=== PATIENT | female | born 1980 | race African-American/Black ===

== ENCOUNTER 2021-11-17 15:39 | Inpatient (IN) | payer OTHER, SELFPAY ==
[2021-11-17] MEDS ORDERED: NA CHLORIDE 0.9% 1,000 ML ONE ×2 (16:04→18:56)
[2021-11-17] MEDS ORDERED: ONDANSETRON 4 MG/2 ML VIAL ONE (16:04)
[2021-11-17] MEDS ORDERED: MORPHINE 4 MG/ML SYR ONE (16:04)
[2021-11-17] MEDS ORDERED: FAMOTIDINE 20 MG/2 ML VIAL IV ONE (16:04)
[2021-11-17 16:16] LABS: Absolute Lymphocytes (CBC) 3.7 K/uL (0.7-4.9); Lymphocytes % 39.4 % (15.3-44.8); MPV 8.9 fL (7.6-11.3); RBC Red Blood Cell Count 4.42 M/uL (3.86-4.86)
[2021-11-17 16:17] LABS: Protime INR 1.12
[2021-11-17 16:33] LABS: ALT/SGPT 19 U/L (12-78); AST/SGOT 11 U/L (15-37); Albumin 3.4 g/dL (3.4-5.0); Alkaline Phosphatase 87 U/L (45-117); BUN Blood Urea Nitrogen 10 mg/dL (7-18); Bicarbonate 26 mmol/L (21-32); Bilirubin Direct 0.1 mg/dL (0-0.2); Bilirubin Total 0.3 mg/dL (0.2-1.0); Glucose Level 135 mg/dL (74-106); Lipase 972 U/L (73-393); NT PRO-BNP 54 pg/mL (<125); Potassium 3.7 mmol/L (3.5-5.1); Protein, Total 7.2 g/dL (6.4-8.2); Sodium Level 140 mmol/L (136-145); Troponin High Sensitivity 5.6 pg/mL (<58.9)
--- NOTE | 2021-11-17 17:41 | RAD REPORT ---
EXAM DESCRIPTION: RAD - Chest Single View - 11/17/2021 4:58 pm CLINICAL HISTORY: ABDOMINAL DISTENTION COMPARISON: None TECHNIQUE: AP portable chest image was obtained 11/17/2021 4:58 pm . FINDINGS: Lungs are clear. Heart and vasculature are normal. No measurable pleural effusion and no p neumothorax. No acute bony abnormality seen. No acute aortic findings suspected. No free air under th e diaphragm. IMPRESSION: No acute cardiopulmonary process.
--- NOTE | 2021-11-17 18:02 | RAD REPORT ---
EXAM DESCRIPTION: US - Abdomen Exam Limited - 11/17/2021 5:50 pm CLINICAL HISTORY: ABD PAIN COMPARISON: No comparisons FINDINGS: No gallstones, sludge or other abnormalities within the gallbladder lumen. There is no wal l thickening or pericholecystic fluid. No common duct stone or biliary tree dilatation identified. IMPRESSION: Normal gallbladder and biliary tree ultrasound.
[2021-11-17 18:19] LABS: Urine Blood Trace-lysed (Negative); Urine Glucose Negative (Negative); Urine Protein Negative (Negative); Urine Specific Gravity >=1.030 (1.005-1.030)
--- NOTE | 2021-11-17 18:32 | ER ---
Nurse's Notes [facility] Name: Helen Villagran Age: 41 yrs Sex: Female : 1980 Arrival Date: 11/17/2021 Time: 15:40 Bed 20 Private MD: Diagnosis: Epigastric abdominal tenderness;Functional dyspepsia;Vomiting Presentation: 11/17 15:44 Chief complaint: Patient states: i am having severe pain on my right side of my tw2 abdomen. i found out in [place] today that i have high pancreatic levels. they gave me some morphine there. they were not able to admit me there so i decided to come here because all they were going to just send me home with a back [facility]. Coronavirus screen: At this time, the client does not indicate any symptoms associated with coronavirus-19. Ebola Screen: Patient denies travel to an Ebola-affected area in the 21 days before illness onset. Initial Sepsis Screen: Does the patient meet any 2 criteria? No. Patient's initial sepsis screen is negative. Does the patient have a suspected source of infection? No. Patient's initial sepsis screen is negative. Risk Assessment: Do you want to hurt yourself or someone else? Patient reports no desire to harm self or others. Onset of symptoms was November 17, 2021. 15:44 Method Of Arrival: Wheelchair tw2 15:44 Acuity: DARIAN 3 tw2 Triage Assessment: 15:47 General: Appears in no apparent distress. well groomed, Behavior is calm, cooperative, tw2 appropriate for age. Pain: Complains of pain in right lower quadrant. GI: Reports upper abdominal pain, nausea. PREMIUM REPRESENTATIVE: 15:47 LMP N/A - Mirena tw2 Historical: - Allergies: 15:45 Jackie-[place] Plus Cold/Cough (Anaphylaxis); tw2 15:45 tramadol; "mean person"; tw2 - Home Meds: 15:45 None [Active]; tw2 - PMHx: 15:45 None; tw2 - PSHx: 15:45 section; gastric sleeve sx; tw2 - Immunization history:: Client reports receiving the 2nd dose of the Covid vaccine, Flu vaccine is not up to date. - Social history:: Smoking status: Patient denies any tobacco usage or history of. Screenin:58 Abuse screen: Denies threats or abuse. Nutritional screening: No deficits noted. tw2 Tuberculosis screening: No symptoms or risk factors identified. Fall Risk None identified. Assessment: 16:30 General: Appears in no apparent distress. comfortable, Behavior is calm, cooperative. ww Pain: Complains of pain in right upper quadrant and right lower quadrant. Neuro: Level of Consciousness is awake, alert, obeys commands, Oriented to person, place, time, situation, Speech is normal. Cardiovascular: Patient's skin is warm and dry. Chest pain is denied. Respiratory: Airway is patent Respiratory effort is even, unlabored, Respiratory pattern is regular, symmetrical. GI: Abdomen is non-distended, Abd is soft X 4 quads Abdomen is tender to palpation in right upper quadrant and right lower quadrant Reports lower abdominal pain, upper abdominal pain, nausea. : No signs and/or symptoms were reported regarding the genitourinary system. EENT: No signs and/or symptoms were reported regarding the EENT system. Derm: Skin is intact, is healthy with good turgor, Skin is pink, warm \\T\\ dry. 17:26 Reassessment: Patient appears in no apparent distress at this time. No changes from previously documented assessment. Patient and/or family updated on plan of care and expected duration. Pain level reassessed. Patient is alert, oriented x 3, equal unlabored respirations, skin warm/dry/pink. Requested her morphine due to her abdominal pain getting worse. 18:09 Reassessment: Patient appears in no apparent distress at this time. No changes from previously documented assessment. Patient and/or family updated on plan of care and expected duration. Pain level reassessed. Patient is alert, oriented x 3, equal unlabored respirations, skin warm/dry/pink. 19:05 Reassessment: Patient and/or family updated on plan of care and expected duration. Pain vc1 level reassessed. Patient is alert, oriented x 3, equal unlabored respirations, skin warm/dry/pink. Assumed care from YAN Morrison. 20:45 Reassessment: Patient and/or family updated on plan of care and expected duration. Pain vc1 level reassessed. Patient is alert, oriented x 3, equal unlabored respirations, skin warm/dry/pink. Patient states symptoms have improved. 20:53 GI: vc1 Vital Signs: 15:44 BP 133 / 81; Pulse 62; Resp 17; Temp 97.7(TE); Pulse Ox 100% on R/A; Weight 85.28 kg tw2 (R); Height 5 ft. 4 in. (162.56 cm); Pain 3/10; 15:50 BP 137 / 81; Pulse 70; Resp 16; Pulse Ox 99% on R/A; ww 16:32 BP 131 / 81; Pulse 58; Resp 14; Pulse Ox 99% on R/A; ww 19:07 BP 142 / 82; Pulse 49; Resp 16; Pulse Ox 100% on R/A; vc1 15:44 Body Mass Index 32.27 (85.28 kg, 162.56 cm) tw2 ED Course: 15:40 Patient arrived in ED. as 15:43 Bhupinder Clifford MD is Attending Physician. [facility] 15:45 Triage completed. tw2 15:47 Arm band placed on. tw2 15:48 Bed in low position. Call light in reach. Adult w/ patient. tw2 15:54 COVID swab sent to lab. vg1 15:55 Tamiko Lyon, RN is Primary Nurse. ww 16:13 Patient has correct armband on for positive identification. Side rails up X 1. Warm 5 blanket given. Pillow given. rubber and plastics worker on. Pulse ox on. NIBP on. 16:13 Initial lab(s) drawn, by ED staff, sent to lab. EKG done, by ED staff, reviewed by perry Clifford MD. 16:56 Inserted saline lock: 20 gauge in left antecubital area, using aseptic technique. zm 17:00 XRAY Chest (1 view) In Process Unspecified. EDMS 17:51 US Abdomen Limited In Process Unspecified. EDMS 18:21 Test, Serum Sent. [facility] 18:29 CT Abd/Pelvis - IV Contrast Only In Process Unspecified. EDMS 18:29 Tor Orourke MD is Hospitalizing Provider. [facility] 18:49 Benny Fay MD is Hospitalizing Provider. la1 20:53 No provider procedures requiring assistance completed. Patient admitted, IV remains in vc1 place. Administered Medications: 16:10 Drug: NS 0.9% 1000 ml Route: IV; Rate: 1 bolus; Site: left antecubital; vg1 16:10 Drug: Zofran (Ondansetron) 4 mg Route: IVP; Site: left antecubital; vg1 16:12 Drug: Pepcid (famotidine) 20 mg Route: IVP; Site: left antecubital; vg1 17:12 Drug: morphine 4 mg Route: IVP; Site: left antecubital; ww 18:55 Drug: NS 0.9% 1000 ml Route: IV; Rate: 1 bolus; Site: left antecubital; ww Outcome: 18:31 Decision to Hospitalize by Provider. sole 20:50 Admitted to Med/surg accompanied by tech, via wheelchair, room 213, with chart. vc1 20:50 Condition: good 20:50 Instructed on the need for admit. 20:54 Patient left the ED. vc1 Signatures: Dispatcher [employer] EDBhupinder Montejo MD MD cha Martinez, Amelia as Attema, Lee, COBOL DEVELOPER-C COBOL DEVELOPER-Cla1 Angy Phelps RN RN 2 Tamela Lindsay Aura Morgan RN RN 1 Tamiko Lyon RN RN ww Calcote, Vanessa, RN RN vc1 Kiersten Lindsay Corrections: (The following items were deleted from the chart) 18:11 17:26 Reassessment: Patient appears in no apparent distress at this time. No changes ww from previously documented assessment. Patient and/or family updated on plan of care and expected duration. Pain level reassessed. Patient is alert, oriented x 3, equal unlabored respirations, skin warm/dry/pink. ww
--- NOTE | 2021-11-17 18:33 | EDPHYS ---
Physician Documentation [facility] Name: Helen Villagran Age: 41 yrs Sex: Female : 1980 Arrival Date: 11/17/2021 Time: 15:40 Bed 20 Private MD: DALIA Physician Bhupinder Clifford HPI: 11/17 16:23 This 41 yrs old Black Female presents to ER via Wheelchair with complaints of Abdominal sole Pain, Abnormal Lab Results. 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 - Social history:: Smoking status: Patient denies any tobacco usage or history of. ROS: 16:23 Constitutional: Negative for fever, chills, and weight loss, Eyes: Negative for injury, sole pain, redness, and discharge, ENT: Negative for injury, pain, and discharge, Neck: Negative for injury, pain, and swelling, Cardiovascular: Negative for chest pain, palpitations, and edema, Respiratory: Negative for shortness of breath, cough, wheezing, and pleuritic chest pain, Back: Negative for injury and pain, : Negative for injury, bleeding, discharge, and swelling, MS/Extremity: Negative for injury and deformity, Skin: Negative for injury, rash, and discoloration, Neuro: Negative for headache, weakness, numbness, tingling, and seizure, Psych: Negative for depression, anxiety, suicide ideation, homicidal ideation, and hallucinations, Allergy/Immunology: Negative for hives, rash, and allergies, Endocrine: Negative for neck swelling, polydipsia, polyuria, polyphagia, and marked weight changes, Hematologic/Lymphatic: Negative for swollen nodes, abnormal bleeding, and unusual bruising. 16:23 Abdomen/GI: Positive for abdominal pain, abdominal cramps, of the right upper quadrant. Exam: 16:23 Constitutional: This is a well developed, well nourished patient who is awake, alert, sole and in no acute distress. Head/Face: Normocephalic, atraumatic. Eyes: Pupils equal round and reactive to light, extra-ocular motions intact. Lids and lashes normal. Conjunctiva and sclera are non-icteric and not injected. Cornea within normal limits. Periorbital areas with no swelling, redness, or edema. ENT: Nares patent. No nasal discharge, no septal abnormalities noted. Tympanic membranes are normal and external auditory canals are clear. Oropharynx with no redness, swelling, or masses, exudates, or evidence of obstruction, uvula midline. Mucous membranes moist. Neck: Trachea midline, no thyromegaly or masses palpated, and no cervical lymphadenopathy. Supple, full range of motion without nuchal rigidity, or vertebral point tenderness. No Meningismus. Chest/axilla: Normal chest wall appearance and motion. Nontender with no deformity. No lesions are appreciated. Cardiovascular: Regular rate and rhythm with a normal S1 and S2. No gallops, murmurs, or rubs. Normal PMI, no JVD. No pulse deficits. Respiratory: Lungs have equal breath sounds bilaterally, clear to auscultation and percussion. No rales, rhonchi or wheezes noted. No increased work of breathing, no retractions or nasal flaring. Back: No spinal tenderness. No costovertebral tenderness. Full range of motion. Female : Normal external genitalia. Skin: Warm, dry with normal turgor. Normal color with no rashes, no lesions, and no evidence of cellulitis. MS/ Extremity: Pulses equal, no cyanosis. Neurovascular intact. Full, normal range of motion. Neuro: Awake and alert, GCS 15, oriented to person, place, time, and situation. Cranial nerves II-XII grossly intact. Motor strength 5/5 in all extremities. Sensory grossly intact. Cerebellar exam normal. Normal gait. Psych: Awake, alert, with orientation to person, place and time. Behavior, mood, and affect are within normal limits. 16:23 ECG was reviewed by the Attending Physician. 16:23 Abdomen/GI: Inspection: abdomen appears normal, Bowel sounds: normal, Palpation: mild abdominal tenderness, in the right upper quadrant, Liver: no appreciated palpable abnormalities, Hernia: not appreciated. 17:12 Musculoskeletal/extremity: ROM: full active range of motion, full passive range of sole motion, Circulation is intact in all extremities. Sensation intact. Compartment Syndrome exam of affected extremity: is normal. DVT Exam: No signs of deep vein thrombosis. no pain, no swelling, no tenderness, negative Homans' sign noted on exam, no appreciated bluish discoloration, no erythema, no increased warmth. Vital Signs: 15:44 BP 133 / 81; Pulse 62; Resp 17; Temp 97.7(TE); Pulse Ox 100% on R/A; Weight 85.28 kg tw2 (R); Height 5 ft. 4 in. (162.56 cm); Pain 3/10; 15:50 BP 137 / 81; Pulse 70; Resp 16; Pulse Ox 99% on R/A; ww 16:32 BP 131 / 81; Pulse 58; Resp 14; Pulse Ox 99% on R/A; ww 19:07 BP 142 / 82; Pulse 49; Resp 16; Pulse Ox 100% on R/A; vc1 15:44 Body Mass Index 32.27 (85.28 kg, 162.56 cm) tw2 MDM: 16:15 Patient medically screened. sole 16:26 Differential diagnosis: cholecystitis, Cholelithiasis, gastritis, gastroesophageal sole reflux disease, GI Bleed, Menorrhagia, non-specific abd pain, pancreatitis, Peptic Ulcer Disease, Perf. Duodenal Ulcer, Perf. Gastric Ulcer, Peritonitis, Pyelonephritis, urinary tract infection. Data reviewed: vital signs, nurses notes, lab test result(s), EKG, radiologic studies, CT scan, ultrasound. Data interpreted: surveillance system monitor: rate is 62 beats/min, rhythm is regular, Pulse oximetry: on room air is 100 %. Test interpretation: by ED physician or midlevel provider: ECG, plain radiologic studies. Counseling: I had a detailed discussion with the patient and/or guardian regarding: the historical points, exam findings, and any diagnostic results supporting the discharge/admit diagnosis, lab results, radiology results. 11/17 15:46 Order name: Basic Metabolic Panel; Complete Time: 17: [facility] 11/17 15:46 Order name: CBC with Diff; Complete Time: 17: [facility] 11/17 15:46 Order name: LFT's; Complete Time: 17: [facility] 11/17 15:46 Order name: Magnesium; Complete Time: 17: [facility] 11/17 15:46 Order name: NT PRO-BNP; Complete Time: 17:09 [facility] 11/17 15:46 Order name: PT-INR; Complete Time: 17:09 [facility] 11/17 15:46 Order name: Troponin HS; Complete Time: 17:09 [facility] 11/17 15:46 Order name: XRAY Chest (1 view); Complete Time: 18:04 [facility] 11/17 15:46 Order name: Lipase; Complete Time: 17:09 [facility] 11/17 15:46 Order name: CT Abd/Pelvis - IV Contrast Only; Complete Time: 18:48 [facility] 11/17 15:46 Order name: SARS-COV-2 RT PCR (Document "Date of Onset" if Symptomatic); Complete Time: [facility] 11/17 18:07 Order name: Test, Serum 11/17 18:19 Order name: Urine Dipstick-Ancillary; Complete Time: 18:27 [facility] 11/17 18:21 Order name: Urine --Ancillary (enter results) 11/17 15:46 Order name: EKG; Complete Time: 15:47 [facility] 11/17 15:46 Order name: Cardiac monitoring; Complete Time: 16:13 [facility] 11/17 15:46 Order name: EKG - Nurse/Tech; Complete Time: 16:13 [facility] 11/17 15:46 Order name: IV Saline Lock; Complete Time: 16:18 [facility] 11/17 15:46 Order name: Labs collected and sent; Complete Time: 16:18 [facility] 11/17 15:46 Order name: O2 Per Protocol; Complete Time: 16:18 [facility] 11/17 15:46 Order name: O2 Sat Monitoring; Complete Time: 16:18 [facility] 11/17 16:23 Order name: US Abdomen Limited; Complete Time: 18:04 [facility] 11/17 18:07 Order name: Urine Dipstick-Ancillary (obtain specimen); Complete Time: 18:21 [facility] 11/17 18:12 Order name: Hepatobiliary System W/ Ph EDMS EC:23 Rate is 58 beats/min. Rhythm is regular. QRS Barnard is Normal. OK interval is normal. QRS sole interval is normal. QT interval is normal. No Q waves. T waves are Normal. No ST changes noted. Clinical impression: Sinus bradycardia and No evidence of ischemia. Interpreted by me. Reviewed by me. Administered Medications: 16:10 Drug: NS 0.9% 1000 ml Route: IV; Rate: 1 bolus; Site: left antecubital; vg1 16:10 Drug: Zofran (Ondansetron) 4 mg Route: IVP; Site: left antecubital; vg1 16:12 Drug: Pepcid (famotidine) 20 mg Route: IVP; Site: left antecubital; vg1 17:12 Drug: morphine 4 mg Route: IVP; Site: left antecubital; ww 18:55 Drug: NS 0.9% 1000 ml Route: IV; Rate: 1 bolus; Site: left antecubital; ww Disposition Summary: 11/17/21 18:31 Hospitalization Ordered Hospitalization Status: Observation sole Location: Telemetry/MedSurg (observation) sole Condition: Stable sole Problem: new sole Symptoms: have improved sole Bed/Room Type: Standard sole Provider: Benny Fay(11/17/21 18:49) la1 Room Assignment: [facility](11/17/21 19:33) Diagnosis - Epigastric abdominal tenderness sole - Functional dyspepsia sole - Vomiting sole Forms: - Medication Reconciliation Form sole - SBAR form sole Signatures: Dispatcher [employer] EDMS Heather Joyner RN RN Bhupinder Albert MD MD cha Attema, Lee, USABILITY STRATEGIST-C USABILITY STRATEGIST-Cla1 Angy Phelps RN RN tw2 Aura Ramirez RN RN vg1 Tamiko Lyon RN RN ww Corrections: (The following items were deleted from the chart) 18:49 18:31 Tor Orourke [facility] la1 19:33 18:31 sole rojas
--- NOTE | 2021-11-17 18:43 | RAD REPORT ---
EXAM DESCRIPTION: CT - Abdomen Pelvis W Contrast - 11/17/2021 6:28 pm CLINICAL HISTORY: ABD PAIN COMPARISON: No comparisons TECHNIQUE: Biphasic, helical CT imaging of the abdomen and pelvis was performed following 100 ml non -ionic IV contrast. No oral contrast administered. All CT scans are performed using dose optimization technique as appropriate and may include automated exposure control or mA/KV adjustment according to patient size. FINDINGS: No suspicious findings in the lung bases. The liver, spleen, and pancreas show no suspicious findings. Gallbladder and biliary tree are also wi thout suspicious finding. Symmetric renal function is seen with no hydronephrosis or suspicious renal mass. No pyelonephritis o r acute parenchymal process. No bladder abnormalities. No adrenal abnormalities. No ovarian or adnexa l abnormality seen. Tubal occlusive devices are in place. IUD is also in place. No dilated bowel loops or bowel wall thickening. Gastric surgical changes are noted. Appendix is norm al. Right-side colon stool volume is moderate. No acute GI process identifiable. No free air, abnormal free fluid or inflammatory stranding. Trace free fluid in the cul de sac is wi thin physiologic limits. No mass or bulky lymphadenopathy. A small fat only umbilical hernia is prese nt. No congestion or edema. No suspicious bony findings. IMPRESSION: Contrast enhanced CT abdomen and pelvis showing no significant or suspicious finding.
--- NOTE | 2021-11-17 19:23 | P.HP ---
Certification for Inpatient Patient admitted to: Observation With expected LOS: <2 Midnights Patient will require the following post-hospital care: None Practitioner: I am a practitioner with admitting privileges, knowledge of patient current condition, hospital course, and medical plan of care. Services: Services provided to patient in accordance with Admission requirements found in Title 42 Section 412.3 of the Code of Federal Regulations Patient History Date of Service: 11/17/21 Reason for admission: Abdominal tenderness History of Present Illness: 41-year-old -Prydeinig female without significant past medical history presents the emergency department for upper quadrant margo pain. Patient reports that she is had intermittent pain similar to this over the course of the last few years periodically, reports that the past week and a half her pain is been significantly worse than previous. Patient was seen at [facility] today, had elevated lipase level around 900 elected to leave and come here for further treatment. Patient was evaluated again here in the emergency department her lipase was elevated around 900 check ultrasound of her abdomen which was completely negative normal gallbladder and biliary tree, CT of the abdomen pelvis with IV contrast also negative for any acute findings. Patient still with significant epigastric/right upper quadrant pain worse after eating, ED provider wishes to admit under observation for possible early pancreatitis. 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 - Family History Father -: Heart disease Mother -: Cancer - Social History Smoking Status: Never smoker Alcohol use: No CD- Drugs: No Caffeine use: Yes Place of Residence: Home Review of Systems 10-point ROS is otherwise unremarkable Gastrointestinal: Nausea, Abdominal Pain Physical Examination - Physical Exam General: Alert, In no apparent distress, Oriented x3 HEENT: Atraumatic, PERRLA, Mucous membr. moist/pink, EOMI, Sclerae nonicteric Neck: Supple, 2+ carotid pulse no bruit, No LAD, Without JVD or thyroid abnormality Respiratory: Clear to auscultation bilaterally, Normal air movement Cardiovascular: Regular rate/rhythm, Normal S1 S2 Capillary refill: <2 Seconds Gastrointestinal: Normal bowel sounds, Tenderness (Mild right upper quadrant/epigastric tenderness) Musculoskeletal: No tenderness Integumentary: No rashes Neurological: Normal gait, Normal speech, Normal strength at 5/5 x4 extr, Normal tone, Normal affect Lymphatics: No axilla or inguinal lymphadenopathy - Studies Laboratory Data (last 24 hrs) 11/17/21 16:06: PT 12.4, INR 1.12 11/17/21 16:06: WBC 9.4, Hgb 13.6, Hct 40.0, Plt Count 245 11/17/21 16:06: Sodium 140, Potassium 3.7, BUN 10, Creatinine 0.75, Glucose 135 H, Magnesium 2.0, Total Bilirubin 0.3, AST 11 L, ALT 19, Alkaline Phosphatase 87, Lipase 972 H Assessment and Plan - Plan Assessment: Abdominal pain/tenderness possible pancreatitis Plan: Abdominal pain/tenderness possible pancreatitis: N.p.o., IVF, as needed pain medications and antiemetics. Ultrasound of the gallbladder demonstrated no acute findings, normal biliary tree without dilatation. Will trend lipase level. ED provider has also ordered a HIDA scan. LFTs within normal limits. Patient reports she is had issues similar to this in the past and had extensive work-up with previous HIDA scan which was inconclusive. DVT PPX: Lovenox Code status: Full Discharge Plan: Home Plan to discharge in: 24 Hours - Advance Directives Does patient have a Living Will: No Does patient have a Durable POA for Healthcare: No - Code Status/Comfort Care Code Status Assessed: Yes (Full) Critical Care: No Time Spent Managing Pts Care (In Minutes): 55
[2021-11-17] MEDS ORDERED: ONDANSETRON 4 MG/2 ML VIAL IV PRN (19:52)
[2021-11-17] MEDS ORDERED: SODIUM CHLORIDE 0.9% 10ML INJ IV PRN (19:52)
[2021-11-17] MEDS: MORPHINE 2 MG/ML SYR IV PRN (19:55)
[2021-11-17 21:03] VITALS: BMI 32.3
[2021-11-17 22:19] VITALS: O2SAT 100
[2021-11-17] MEDS ORDERED: DIPHENHYDRAMINE 50 MG/ML VIAL IV ONE (22:40)
[2021-11-18] MEDS: NA CHLORIDE 0.9% 1,000 ML IV SCH ×3 (02:00→23:59)
[2021-11-18 04:09] LABS: Absolute Lymphocytes (CBC) 3.3 K/uL (0.7-4.9); Hematocrit 35.5 % (36.0-45.0); Lymphocytes % 40.7 % (15.3-44.8); MPV 8.9 fL (7.6-11.3); RBC Red Blood Cell Count 3.97 M/uL (3.86-4.86)
[2021-11-18 04:18] LABS: ALT/SGPT 17 U/L (12-78); AST/SGOT 11 U/L (15-37); Albumin 2.9 g/dL (3.4-5.0); Alkaline Phosphatase 73 U/L (45-117); BUN Blood Urea Nitrogen 7 mg/dL (7-18); Bicarbonate 28 mmol/L (21-32); Bilirubin Total 0.5 mg/dL (0.2-1.0); Glucose Level 79 mg/dL (74-106); HDL Cholesterol 38 mg/dL (40-60); LDL Cholesterol, Calculated 90 (<130); Lipase 120 U/L (73-393); Potassium 4.1 mmol/L (3.5-5.1); Protein, Total 6.1 g/dL (6.4-8.2); Sodium Level 141 mmol/L (136-145)
[2021-11-18] MEDS: ENOXAPARIN 40 MG/0.4 ML SQ SCH (08:07)
[2021-11-18] MEDS: PANTOPRAZOLE 40 MG INJ IVP SCH (08:07)
--- NOTE | 2021-11-18 12:12 | RAD REPORT ---
EXAM DESCRIPTION: NM - Hepatobiliary System Imagin - 11/18/2021 12:01 pm CLINICAL HISTORY: RUQ pain COMPARISON: No comparisons TECHNIQUE: The patient was administered approximately 6.6 mCi Tc99m Choletec. Imaging of the right u pper quadrant was performed initially for up to 60 minutes. Gallbladder ejection fraction determination was then performed utilizing ice cream. FINDINGS: Normal hepatic uptake and excretion with appropriate clearance of background blood pool ac tivity. Delayed visualization of the small bowel activity. Gallbladder visualizes within normal time limits. The calculated ejection fraction is 45% (normal gre ater than 35%). Subjective pain reported by the patient: Pre-procedure - 0 During or subsequent to following meal ingestion - 0 IMPRESSION: Patient cystic duct and patent sphincter of Oddi. No delay in visualization of the gallb ladder, biliary tree. Delayed biliary to bowel transit could be a normal variant or secondary to legal recovery specialist luis cholecystitis. Ejection fraction is 45% (normal greater than 35%). Subjective patient pain assessment as detailed above.
[2021-11-18] MEDS: MORPHINE 2 MG/ML SYR IV PRN ×2 (12:28→20:50)
--- NOTE | 2021-11-18 12:35 | EKG ---
Test Date: 2021-11-17 Test Time: 16:15:14 Sorting Cows Worker: MEASUREMENT RESULTS: Intervals: Rate: 58 CT: 130 QRSD: 94 QT: 440 QTc: 431 [place]: P: 12 CT: 130 QRS: 20 T: 36 INTERPRETIVE STATEMENTS: Sinus bradycardia Otherwise normal ECG No previous ECG available for comparison Electronically Signed On 11-18-21 12:33:15 CDT by Danny Kaur
[2021-11-18] MEDS: SUCRALFATE 1 GM TABLET PO SCH ×2 (13:37→20:28)
--- NOTE | 2021-11-18 15:17 | P.PN ---
Date of Service: 11/18/21 Subjective: feels better, but hasn't eaten/drank anything yet states pain is shortly after drinking/eating something, worsening over the last 3 weeks Never had episodes like this before - the pain has been much worse this time ROS: 10 point ROS as noted above, otherwise negative Physical exam GEN: Alert, oriented, NAD HEENT: Normal conjunctiva, sclera anicteric CV: Regular rate and rhythm, no edema Pulm: Non-labored respirations on room air ABD: Soft, RUQ mild-mod tenderness to deep palpation Integumentary: No rashes Neuro: Normal speech, normal affect Problem List Abdominal pain/tenderness possible biliary colic vs pancreatitis h/o gastric sleeve NPO, IVF pain medication as needed CT abd/pelvis and U/S show no acute findings patient with pain somewhat consistent with biliary colic, HIDA scan ordered in ED, to be done today LFTs within normal limits had similar episode but much milder many years ago, reports negative work-up f/u HIDA will consult general surgery given presentation, may need an elective cholecystectomy VTE: lovenox Code: full Dispo: home, in ~24hrs Time Spent Managing Pts Care (In Minutes): 35
[2021-11-18] MEDS: ACETAMINOPHEN 500 MG TAB PO PRN ×2 (17:19→23:58)
[2021-11-19] MEDS: NA CHLORIDE 0.9% 1,000 ML IV SCH ×2 (02:00→11:43)
[2021-11-19 05:22] LABS: Absolute Lymphocytes (CBC) 2.7 K/uL (0.7-4.9); Hematocrit 36.3 % (36.0-45.0); Lymphocytes % 48.2 % (15.3-44.8); MPV 8.8 fL (7.6-11.3); RBC Red Blood Cell Count 4.04 M/uL (3.86-4.86)
[2021-11-19 05:42] LABS: ALT/SGPT 14 U/L (12-78); AST/SGOT 8 U/L (15-37); Albumin 2.7 g/dL (3.4-5.0); Alkaline Phosphatase 73 U/L (45-117); BUN Blood Urea Nitrogen 4 mg/dL (7-18); Bicarbonate 27 mmol/L (21-32); Bilirubin Total 0.4 mg/dL (0.2-1.0); Glucose Level 85 mg/dL (74-106); Lipase 121 U/L (73-393); Potassium 3.6 mmol/L (3.5-5.1); Protein, Total 5.7 g/dL (6.4-8.2); Sodium Level 141 mmol/L (136-145)
[2021-11-19 07:52] LABS: Platelet Estimate ADEQ
[2021-11-19 07:53] LABS: Blood Morphology Comment NOT SEEN (NOT SEEN)
[2021-11-19] MEDS: PANTOPRAZOLE 40 MG INJ IVP SCH (08:59)
[2021-11-19] MEDS: SUCRALFATE 1 GM TABLET PO SCH (09:00)
[2021-11-19] MEDS: ENOXAPARIN 40 MG/0.4 ML SQ SCH (09:00)
[2021-11-19] MEDS ORDERED: POTASSIUM CL SA 10 MEQ TAB PO ONE (09:00)
[2021-11-19 13:27] VITALS: BP 129/68; TEMP 97.5
--- NOTE | 2021-11-19 19:55 | P.DS ---
Admission Date: 11/18/21 Discharge Date: 11/19/21 Disposition: ROUTINE DISCHARGE Discharge Condition: GOOD Reason for Admission: Abdominal tenderness Procedures: Problem List RUQ abdominal pain, possible biliary colic vs pancreatitis vs duodenal ulcer h/o gastric sleeve Brief History of Present Illness: 41yo F, PMH: gastric sleeve ~1 year ago. Presented to ED due to progressively worsening intermittent RUQ abdominal pain over the last ~3 weeks. Reported h/o intermittent pain over last several years, but this episode was much more severe and longer lasting. Patient was seen at [facility] today, had elevated lipase level around 900 elected to leave and come here for further treatment. Patient was evaluated again here in the emergency department her lipase was elevated around 900. Ultrasound of her abdomen which was completely negative normal gallbladder and biliary tree, CT of the abdomen pelvis with IV contrast also negative for any acute findings. Patient still with significant epigastric/right upper quadrant pain worse after eating, ED provider wishes to admit for further evaluation/management Hospital Course: Patient was found to have elevated lipase levels and right upper quadrant tenderness. She was evaluated by ultrasound, CT, and HIDA scan, which did not reveal any acute process. General Surgery was consulted. There is possibility the pain is from a duodenal ulcer. Patient had improvement with brief bowel rest, protonix, carafate, and IV fluids. Her diet was advanced to a soft diet which she was able to tolerate. Discharged home with prescriptions for protonix and carafate. Follow up with Dr. Walsh in the next 1-2 weeks. To review and plan for EGD to further evaluate for possible ulcer. Avoid NSAIDs. Recommend tylenol for pain, or topical pain relievers. Follow up with PCP within 1 week Vital Signs/Physical Exam: Temp Pulse Resp BP Pulse Ox 97.5 F 66 14 129/68 100 11/19/21 12:00 11/19/21 12:00 11/19/21 12:00 11/19/21 12:11/19/21 12:00 Physical exam GEN: Alert, oriented, NAD HEENT: Normal conjunctiva, sclera anicteric CV: Regular rate and rhythm, no edema Pulm: Non-labored respirations on room air ABD: Soft, mild RUQ tenderness to deep palpation Neuro: Normal speech, normal affect Laboratory Data at Discharge: WBC 5.7 K/uL (4.3-10.9) D 11/19/21 05:05 Hgb 12.5 g/dL (12.0-15.0) 11/19/21 05:05 Hct 36.3 % (36.0-45.0) 11/19/21 05:05 Plt Count 233 K/uL (152-406) 11/19/21 05:05 PT 12.4 SECONDS (9.5-12.5) 11/17/21 16:06 INR 1.12 11/17/21 16:06 Sodium 141 mmol/L (136-145) 11/19/21 05:05 Potassium 3.6 mmol/L (3.5-5.1) 11/19/21 05:05 BUN 4 mg/dL (7-18) L 11/19/21 05:05 Creatinine 0.66 mg/dL (0.55-1.3) 11/19/21 05:05 Glucose 85 mg/dL (74-106) 11/19/21 05:05 Magnesium 2.0 mg/dL (1.8-2.4) 11/17/21 16:06 Total Bilirubin 0.4 mg/dL (0.2-1.0) 11/19/21 05:05 AST 8 U/L (15-37) L 11/19/21 05:05 ALT 14 U/L (12-78) 11/19/21 05:05 Alkaline Phosphatase 73 U/L (45-117) 11/19/21 05:05 Triglycerides 55 mg/dL (<150) 11/18/21 03:22 Cholesterol 139 mg/dL (<200) 11/18/21 03:22 HDL Cholesterol 38 mg/dL (40-60) L 11/18/21 03:22 Cholesterol/HDL Ratio 3.66 11/18/21 03:22 Lipase 121 U/L (73-393) 11/19/21 05:05 Home Medications: Aspirin/Acetaminophen/Caffeine [Excedrin Migraine Caplet] 1 each PO PRN PRN 11/17/21 Pantoprazole [Protonix Tab*] 40 mg PO BID 30 Days #60 tab 11/19/21 Sucralfate [Carafate*] 1 gm PO TID 30 Days #90 tab 11/19/21 New Medications: Sucralfate [Carafate*] 1 gm PO TID 30 Days #90 tab Pantoprazole [Protonix Tab*] 40 mg PO BID 30 Days #60 tab Physician Discharge Instructions: Patient was found to have elevated lipase levels and right upper quadrant tenderness. She was evaluated by ultrasound, CT, and HIDA scan, which did not reveal any acute process. General Surgery was consulted. There is possibility the pain is from a duodenal ulcer. Patient had improvement with brief bowel rest, protonix, carafate, and IV fluids. Her diet was advanced to a soft diet which she was able to tolerate. Discharged home with prescriptions for protonix and carafate. Follow up with Dr. Walsh in the next 1-2 weeks. To review and plan for EGD to further evaluate for possible ulcer. Avoid NSAIDs. Recommend tylenol for pain, or topical pain relievers. Follow up with PCP within 1 week Diet: low fat Followup: Samra Francois [facility] [Primary Care Provider] - (Call to schedule appointment) Time spent managing pt's care (in minutes): 45
== END 2021-11-19 13:30 | disposition home or self-care (01) | DRG 383 ==
LOC: ER 15:39 → ERHOLD 19:15 → 2ND 20:26 → OBSVTOIN 11-18 14:24
PROVIDERS: ADMIT Hospitalist; ATTEND Hospitalist
DX: K26.9 Duodenal ulcer, unspecified as acute or chronic, without hemorrhage or perforation (principal); K85.90 Acute pancreatitis without necrosis or infection, unspecified; K30 Functional dyspepsia; K80.50 Calculus of bile duct without cholangitis or cholecystitis without obstruction; Z88.5 Allergy status to narcotic agent; Z98.84 Bariatric surgery status; Z88.8 Allergy status to other drugs, medicaments and biological substances; Z79.82 Long term (current) use of aspirin; Z79.899 Other long term (current) drug therapy; Z20.822 Contact with and (suspected) exposure to COVID-19
CPT/HCPCS: 36415; 71045; 74177; 76705; 78226; 80048; 80053; 80061; 80076; 81003; 83690; 83735; 83880; 84484; 85025; 85610; 93005; 96374; 96375; 99285; A9537; C9113; G0378; J1200; J1650; J2270; J2405; J7030; Q9967; U0003

== ENCOUNTER 2022-07-03 10:57 | Emergency (ER) | payer BC, SELFPAY ==
--- OUTSIDE RECORDS SUMMARY | 2022-07-03 11:00 | XMS REPORT | Continuity of Care Document ---
:1980 Author Organization [facility] t Address [address] [place] [address] Dr. Sorenson [address] [place] [id number] Care Team Providers Name Role Phone Asked, No Pcp Primary Care Physician Unavailable LETY_Yojana Attending Clinician Unavailable Jarad Velazquez DPM Attending Clinician Kelsey Davidson Attending Clinician [phone] Roberth Attending Clinician Unavailable SALLIE Attending Clinician Unavailable Jonah Bui MD Attending Clinician Samra Francois Attending Clinician [phone] RUFUS Admitting Clinician Unavailable Roberth Admitting Clinician Unavailable SALLIE Admitting Clinician Unavailable Payers Payer Name Policy Type Policy Number Effective Date Expiration Date Jenny rodriguez [place] AMANUEL [id number] 2022 ADVANTAGE (O) 00:00:00 Problems Condition Condition Condition Status Onset Resolution Last Treating Co mments Source Name Details Category Date Date Treatment Clinician Date Migraine Migraine Problem Active 2021-08 Sween y - Commun[facility] 00:00: ty [facility] Pain in Pain in Problem Active 2021-08 [facility] throat Throat 08-31 Communi 00:00: ty 00 [facility] Allergic Allergic Problem Active 2021-08 Sween y rhinitis Rhinitis 0-10 Commun i 00:00: ty 00 [facility] Clin[facility] Pain in Pain in Problem Active [facility] right foot Right Foot 9-17 Co mmuni 00:00: ty 00 Hospita l Clinics Ganglion Ganglion Problem Active Sween y cyst Cyst 9- Communi 00:00: ty 00 [facility] Pain in Pain in Problem Active [facility] left foot Left Foot 9-15 Comm uni 00:00: ty 00 [facility] Allergies, Adverse Reactions, Alerts Allergy Allergy Status Severity Reaction(s) Onset Inactive Treating Comm ents Source Name Type Date Date Clinician Aspirin- Propensi Active Rash Method i Sod ty to 12-20 st Bicarb-C adverse 00:00: Hospita itric reaction 00 l Acid s to drug LIZETTE-DAMIEN Allergy Active Anaphylaxis Sw eeny TZER to Communi PLUS substanc ty [facility] Tr[facility]ol Allergy Active Other [facility] to Communi substanc ty e [facility] Clinics Social History Social Habit Start Date Stop Date Quantity Comments Source Tobacco use and 2021-12-20 2021-12-20 Smokeless tobacco [facility] 00:00:00 00:00:00 non-user Hospital Alcohol intake 2021-12-20 2021-12-20 [facility]-drinker Hospital (finding) Sex Assigned At [birth year] [facility] Smoking Status Start Date Stop Date Source Never smoked tobacco [facility] Medications Ordered Filled Start Stop Current Ordering Indication Dosage Frequency Signature Comments Components Source Medication Medication Date Date Medication? Clinician (SIG) Name Name Bairon 40 Bairon 40 2021-08 No Kenalog 40 Randall mg/mL mg/mL 0-10 mg/mL Communi suspension suspension 16:35: suspension ty for for 00 for Hospita injectionTa injectionTa injectionT l ke 40 mg by ke 40 mg by leonides 40 mg Clinics injection injection by route. route. injection route. Kenalog 40 Kenalog 40 2021-08 No Kenalog 40 [facility] mg/mL mg/mL 0-10 mg/mL Communi suspension suspension 16:35: suspension ty for for 00 for Hospita injectionTa injectionTa injectionT l ke 40 mg by ke 40 mg by leonides 40 mg Clinics injection injection by route. route. injection route. ondansetron 4mg Q8H Take 1 Met hodi ODT 12-20 05-08 tablet (4 st (ZOFRAN-ODT 00:00: 04:59 mg total) Hospita ) 4 MG 00 :00 by mouth l disintegrat every 8 ing tablet (eight) hours as needed for nausea or vomiting for up to 7 days. Advair Advair No Advair [facility] Diskus 100 Diskus 100 Diskus 100 Communi mcg-50 mcg-50 mcg-50 ty mcg/dose mcg/dose mcg/dose Hos nadine powder for powder for powder for l inhalation inhalation inhalation Clinics INHALE 1 INHALE 1 INHALE 1 PUFF TWICE PUFF TWICE PUFF TWICE A DAY BY A DAY BY A DAY BY INHALATION INHALATION INHALATION ROUTE ROUTE ROUTE DIRECTED. DIRECTED. DIRECTED. dicyclomine dicyclomine No 1 QID dicyclomin Randall 20 mg 20 mg e 20 mg Communi tablet Take tablet Take tablet ty 1 tablet 4 1 tablet 4 Take 1 H ospita times a day times a day tablet 4 l by oral by oral times a Clinic s route as route as day by needed. needed. oral route as needed. EpiPen EpiPen No 1auto(s EpiPen Randall 2-Ludwin 0.3 2-Ludwin 0.3 ) 2-Ludwin 0.3 Communi mg/0.3 mL mg/0.3 mL mg/0.3 mL ty injection, injection, injection, Hospita auto-inject auto-inject auto-injec l or Take 1 or Take 1 tor Take 1 Clinics auto by auto by auto by injection injection injection route as route as route as needed. needed. needed. gabapentin gabapentin No gabapentin [facility] 100 mg 100 mg 100 mg Communi capsule capsule capsule ty TAKE 1 TAKE 1 TAKE 1 Hospita CAPSULE BY CAPSULE BY CAPSULE BY l MOUTH TWICE MOUTH TWICE MOUTH Clinics A DAY A DAY TWICE A DAY levothyroxi levothyroxi No levothyrox Randall ne 50 mcg ne 50 mcg ine 50 mcg Communi tablet Take tablet Take tablet ty 1 tablet 1 tablet Take 1 Hospi ta every day every day tablet l by oral by oral every day Clin ics route. route. by oral route. gabapentin gabapentin No gabapentin [facility] 100 mg 100 mg 100 mg Communi capsule capsule capsule ty Take 1 Take 1 Take 1 Hospita capsule capsule capsule l twice a day twice a day twice a Clinics by oral by oral day by route. route. oral route. Kenalog 40 Kenalog 40 No 40mg Kenalog 40 Randall mg/mL mg/mL mg/mL Communi suspension suspension suspension ty for for for Hospita injection injection injection l Take 40 mg Take 40 mg Take 40 mg Clinics by by by injection injection injection route. route. route. acetaminoph acetaminoph No 1 Q7H acetaminop [facility] en 300 en 300 hen 300 Communi mg-codeine mg-codeine mg-codeine ty 30 mg 30 mg 30 mg Hospita tablet Take tablet Take tablet l 1 tablet 1 tablet Take 1 Clini cs every 6-8 every 6-8 tablet hours by hours by every 6-8 oral route oral route hours by as needed. as needed. oral route as needed. gabapentin gabapentin No 1capsul BID gabapentin [facility] 100 mg 100 mg e(s) 100 mg Communi capsule capsule capsule ty Take 1 Take 1 Take 1 Hospita capsule capsule capsule l twice a day twice a day twice a Clinics by oral by oral day by route. route. oral route. acetaminoph acetaminoph No 1 Q8H acetaminop Randall en 300 en 300 hen 300 Communi mg-codeine mg-codeine mg-codeine ty 30 mg 30 mg 30 mg Hospita tablet Take tablet Take tablet l 1 tablet 1 tablet Take 1 Clini cs every 8 every 8 tablet hours by hours by every 8 oral route oral route hours by as needed. as needed. oral route as needed. Advair Advair No Advair [facility] Diskus 100 Diskus 100 Diskus 100 Communi mcg-50 mcg-50 mcg-50 ty mcg/dose mcg/dose mcg/dose Hos nadine powder for powder for powder for l inhalation inhalation inhalation Clinics INHALE 1 INHALE 1 INHALE 1 PUFF TWICE PUFF TWICE PUFF TWICE A DAY BY A DAY BY A DAY BY INHALATION INHALATION INHALATION ROUTE ROUTE ROUTE DIRECTED. DIRECTED. DIRECTED. dicyclomine dicyclomine No 1 QID dicyclomin Randall 20 mg 20 mg e 20 mg Communi tablet Take tablet Take tablet ty 1 tablet 4 1 tablet 4 Take 1 H ospita times a day times a day tablet 4 l by oral by oral times a Clinic s route as route as day by needed. needed. oral route as needed. gabapentin gabapentin No gabapentin [facility] 100 mg 100 mg 100 mg Communi capsule capsule capsule ty TAKE 1 TAKE 1 TAKE 1 Hospita CAPSULE BY CAPSULE BY CAPSULE BY l MOUTH TWICE MOUTH TWICE MOUTH Clinics A DAY A DAY TWICE A DAY levothyroxi levothyroxi No levothyrox Randall ne 50 mcg ne 50 mcg ine 50 mcg Communi tablet Take tablet Take tablet ty 1 tablet 1 tablet Take 1 Hospi ta every day every day tablet l by oral by oral every day Clin ics route. route. by oral route. acetaminoph acetaminoph No 1 Q8H acetaminop [facility] en 300 en 300 hen 300 Communi mg-codeine mg-codeine mg-codeine ty 30 mg 30 mg 30 mg Hospita tablet Take tablet Take tablet l 1 tablet 1 tablet Take 1 Clini cs every 8 every 8 tablet hours by hours by every 8 oral route oral route hours by as needed. as needed. oral route as needed. Immunizations Ordered Immunization Filled Immunization Date Status Commen ts Source Name Name COVID-19, mRNA, COVID-19, mRNA, 2022-03-17 Completed [facility] LNP-S, PF, 30 LNP-S, PF, 30 00:00:00 Hospital Clinics mcg/0.3 mL dose mcg/0.3 mL dose (Pfizer-BioNTech) (The Moment-BioNTech) COVID-19, mRNA, COVID-19, mRNA, 2022-03-17 Completed [facility] LNP-S, PF, 30 LNP-S, PF, 30 00:00:00 Hospital Clinics mcg/0.3 mL dose mcg/0.3 mL dose (Pfizer-BioNTech) (Pfizer-BioNTech) COVID-19, mRNA, COVID-19, mRNA, 2022-03-17 Completed [facility] LNP-S, PF, 30 LNP-S, PF, 30 00:00:00 Hospital Clinics mcg/0.3 mL dose mcg/0.3 mL dose (Pfizer-BioNTech) (The Moment-BioNTech) COVID-19, mRNA, COVID-19, mRNA, 2021-03-04 Completed [facility] LNP-S, PF, 100 LNP-S, PF, 100 00:00:[facility] mcg/0.5 mL dose mcg/0.5 mL dose (Moderna) (Moderna) COVID-19, mRNA, COVID-19, mRNA, 2021-03-04 Completed [facility] LNP-S, PF, 100 LNP-S, PF, 100 00:00:00 Hospit al Clinics mcg/0.5 mL dose mcg/0.5 mL dose (Moderna) (Moderna) COVID-19, mRNA, COVID-19, mRNA, 2021-03-04 Completed [facility] LNP-S, PF, 100 LNP-S, PF, 100 00:00:00 Hospit al Clinics mcg/0.5 mL dose mcg/0.5 mL dose (Moderna) (Moderna) COVID-19, mRNA, COVID-19, mRNA, 2021-03-04 Completed [facility] LNP-S, PF, 100 LNP-S, PF, 100 00:00:00 Hospit al Clinics mcg/0.5 mL dose mcg/0.5 mL dose (Moderna) (Moderna) COVID-19, mRNA, COVID-19, mRNA, 2021-03-04 Completed [facility] LNP-S, PF, 100 LNP-S, PF, 100 00:00:00 Hospit al Clinics mcg/0.5 mL dose mcg/0.5 mL dose (Moderna) (Moderna) COVID-19, mRNA, COVID-19, mRNA, 2021-03-04 Completed [facility] LNP-S, PF, 100 LNP-S, PF, 100 00:00:00 Hospit al Clinics mcg/0.5 mL dose mcg/0.5 mL dose (Moderna) (Moderna) COVID-19, mRNA, COVID-19, mRNA, 2020-11-26 Completed [facility] LNP-S, PF, 100 LNP-S, PF, 100 00:00:00 Hospit al Clinics mcg/0.5 mL dose mcg/0.5 mL dose (Moderna) (Moderna) COVID-19, mRNA, COVID-19, mRNA, 2020-11-26 Completed [facility] LNP-S, PF, 100 LNP-S, PF, 100 00:00:00 Hospit al Clinics mcg/0.5 mL dose mcg/0.5 mL dose (Moderna) (Moderna) COVID-19, mRNA, COVID-19, mRNA, 2020-11-26 Completed [facility] LNP-S, PF, 100 LNP-S, PF, 100 00:00:00 Hospit wv Clinics mcg/0.5 mL dose mcg/0.5 mL dose (Moderna) (Moderna) COVID-19, mRNA, COVID-19, mRNA, 2020-11-26 Completed [facility] LNP-S, PF, 100 LNP-S, PF, 100 00:00:00 Hospit [facility] Clinics mcg/0.5 mL dose mcg/0.5 mL dose (Moderna) (Moderna) COVID-19, mRNA, COVID-19, mRNA, 2020-11-26 Completed [facility] LNP-S, PF, 100 LNP-S, PF, 100 00:00:00 Hospit wv Clinics mcg/0.5 mL dose mcg/0.5 mL dose (Moderna) (Moderna) COVID-19, mRNA, COVID-19, mRNA, 2020-11-26 Completed [facility] LNP-S, PF, 100 LNP-S, PF, 100 00:00:00 Hospit w[facility] Clinics mcg/0.5 mL dose mcg/0.5 mL dose (Moderna) (Moderna) Vital Signs Vital Name Observation Time Observation Value Comments Source BP Diastolic 2022-07-01 00:00:00 72 mm[Hg] [facility] s Height 2022-07-01 00:00:00 64 [in_i] [facility] s BMI (Body Mass 2022-07-01 00:00:00 31.2 kg/m2 [facility] s BP Systolic 2022-07-01 00:00:00 113 mm[Hg] [facility] s Body Weight 2022-07-01 00:00:00 2912 [oz_av] [facility] s BP Diastolic 2022-06-29 00:00:00 86 mm[Hg] [facility] s Height 2022-06-29 00:00:00 64 [in_i] [facility] s BMI (Body Mass 2022-06-29 00:00:00 31.2 kg/m2 [facility] s BP Systolic 2022-06-29 00:00:00 132 mm[Hg] [facility] Body Weight 2022-06-29 00:00:00 2905.6 [oz_av] [facility] BP Diastolic 2022-06-01 00:00:00 80 mm[Hg] [facility] Height 2022-06-01 00:00:00 64 [in_i] [facility] BMI (Body Mass 2022-06-01 00:00:00 32.3 kg/m2 [facility] s BP Systolic 2022-06-01 00:00:00 123 mm[Hg] [facility] Body Weight 2022-06-01 00:00:00 3008 [oz_av] [facility] BP Diastolic 2022-05-07 00:00:00 87 mm[Hg] [facility] s Height 2022-05-07 00:00:00 64 [in_i] [facility] s BMI (Body Mass 2022-05-07 00:00:00 32.1 kg/m2 [facility] s BP Systolic 2022-05-07 00:00:00 135 mm[Hg] [facility] Body Weight 2022-05-07 00:00:00 2988.8 [oz_av] [facility] BP Diastolic 2022-01-20 00:00:00 73 mm[Hg] [facility] Height 2022-01-20 00:00:00 64 [in_i] [facility] s BMI (Body Mass 2022-01-20 00:00:00 31.5 kg/m2 [facility] s BP Systolic 2022-01-20 00:00:00 129 mm[Hg] [facility] Body Weight 2022-01-20 00:00:00 2934.4 [oz_av] [facility] s BP Diastolic 2021-10-30 00:00:00 91 mm[Hg] [facility] s Height 2021-10-30 00:00:00 64 [in_i] [facility] s BMI (Body Mass 2021-10-30 00:00:00 33.6 kg/m2 [facility] s BP Systolic 2021-10-30 00:00:00 150 mm[Hg] [facility] s Body Weight 2021-10-30 00:00:00 3132.8 [oz_av] [facility] s Systolic blood 2021-12-20 18:34:00 119 mm[Hg] [facility] pressure Diastolic blood 2021-12-20 18:34:00 60 mm[Hg] [facility] pressure Heart rate 2021-12-20 18:34:00 61 /min [facility] Body temperature 2021-12-20 18:34:00 37.06 Lisa [facility] Respiratory rate 2021-12-20 18:34:00 17 /min [facility] Oxygen saturation in 2021-12-20 18:34:00 96 /min [facility] Arterial blood by Pulse oximetry Body height 2021-12-20 15:46:00 165.1 cm [facility] Body weight 2021-12-20 15:46:00 83.008 kg [facility] BMI 2021-12-20 15:46:00 30.45 kg/m2 [facility] Procedures Procedure Date / Time Performing Clinician Source Performed MAMMO, screening, 2022-06-01 00:00:00 Randall [facility] XR FOOT 3+ VW LEFT 2022-05-08 15:55:56 Yovani [facility] XR ANKLE 3+ VW LEFT 2022-05-08 15:55:41 Y[address] [facility] ABDOMEN PELVIS W 2021-12-20 18:48:55 Ray, [facility] CONTRAST URINE CULTURE 2021-12-20 16:29:00 Ray, [facility] HCG QUALITATIVE, SERUM 2021-12-20 16:29:00 Ray, [facility] SCREEN HC COMPLETE BLD COUNT 2021-12-20 16:29:[address] [facility] W/AUTO DIFF COMPREHENSIVE METABOLIC 2021-12-20 16:29:00 Kuldeep [facility] PANEL LIPASE LEVEL 2021-12-20 16:29:00 [facility] URINALYSIS SCREEN AND 2021-12-20 16:29:[address] [facility] MICROSCOPY, WITH REFLEX TO CULTURE ESTIMATED GFR 2021-12-20 16:29:00 Kuldeep [facility] US, pelvis, complete 2021-10-30 00:00:00 [facility] Gastric Bypass for 2020-12-11 00:00:00 [facility] Clinics Section [facility] Clinics Plan of Care Planned Activity Planned Date Details Comments Source Future Scheduled Test 2022-07-[address] [facility] 10:59:24 (1 of 3 - 3-dose series) [code = HEPATITIS B VACCINES (1 of 3 - 3-dose series)] Future Scheduled Test 2022-07-03 Hepatitis C Method [facility] 10:59:24 screening (procedure) [code = 898827129] Future Scheduled Test 2022-07-[address] [facility] 10:59:24 malignant neoplasm of cervix (procedure) [code = 308497653] Future Scheduled Test 2022-07-[address] [facility] 10:59:24 SCREENING [code = BREAST CANCER SCREENING] Future Scheduled Test 2022-07-03 COVID-19 VACCINE (4 [facility] 10:59:24 - Booster) [code = COVID-19 VACCINE (4 - Booster)] Future Scheduled Test 2022-07-03 INFLUENZA VACCINE [facility] 10:59:24 [code = INFLUENZA VACCINE] Diagnostic Test 2021-10-30 mononucleosis, [facility] Com munity Pending 00:00:00 heterophile Ab, Hospital Cli nics blood [code = mononucleosis, heterophile Ab, blood] Diagnostic Test 2021-10-30 CBC w/ auto diff [facility] C ommunity Pending 00:00:00 [code = CBC w/ auto Hospital Clinics diff] Diagnostic Test 2021-10-30 CMP, serum or plasma [facility] Pending 00:00:00 [code = CMP, serum Hospital Clinics or plasma] Diagnostic Test 2021-10-30 lipids, total[facility] 00:[facility]00 [code = lipids, Hospital Cli nics total, serum] Diagnostic Test 2021-10-30 vitamin D, [facility] Commu nity Pending 00:00:00 25-hydroxy, total, Hospital Clinics serum [code = vitamin D, 25-hydroxy, total, serum] Instructions [facility] Clinic s Encounters Start End Encounter Admission Attending Care Care Encounter Source Date/Time Date/Time Type Type Clinicians Facility Department ID 2022-07-01 2022-07-01 Outpatient CHRETIEN_F [facility] [id number] Randall 00:00:00 00:00:00 1109 Commun i ty Hospita [facility] 2022-07-01 2022-07-01 Kelsey [facility] [place] - [place] [id number] [facility] 00:00:00 00:00:00 [facility] m[facility]i RETAIL SUPPORT ASSOCIATE-BRICK CATCHER-B Hospital - ty C: [address], [address], [place] [address] , Ph. 2022-06-29 2022-06-29 Outpatient [facility]RETIEN[facility] [id number] [place] 00:00:00 00:00:00 1107 Commun i ty Hospita [facility] 2022-06-29 2022-06-29 Kelsey [facility] [place] - [place] [id number] Randall 00:00:00 00:00:00 [facility] RETAIL SUPPORT ASSOCIATE-BRICK CATCHER-B Hospital - ty C: [address] [facility], [address], [place] [address] , Ph. 2022-06-01 2022-06-01 Outpatient CHRETIEN_F [facility] [id number] Randall 00:00:00 00:00:00 1010 Commun i ty Hospita l Clinics 2022-06-01 2022-06-01 Kelsey [facility] [place] - [place] [id number] [facility] 00:00:00 00:00:00 [facility]y [facility] sherlyundonna RETAIL SUPPORT ASSOCIATE-BRICK CATCHER-B Hospital - ty C: [address], [address], [place] [address] , Ph. 2022-05-08 2022-05-08 Transcribe Jarad Velazquez [id number] Methodi 00:00:00 00:00:00 Orders Hung [id number] 3.430.2.7 Hospit a .[id number] l .8 2022-05-08 2022-05-08 Outpatient JARAD VELAZQUEZ [facility] [id number] [place] 00:00:00 00:00:[address] 2022-05-08 2022-05-08 Outpatient JARAD VELAZQUEZ [facility] [id number] [place] 00:00:00 00:00:[address] 2022-05-07 2022-05-07 Outpatient CHRETIEN_F [facility] [id number] [facility] 00:00:00 00:00:00 0915 [facility] 2022-05-07 2022-05-07 Outpatient Lety, [facility] [id number] 00:00:00 00:00:00 Kelsey [id number] 2022-05-07 2022-05-07 Kelsey [facility] [place] - [place] [id number] [facility] 00:00:00 00:00:00 Lety [facility] mmundonna RETAIL SUPPORT ASSOCIATE-BRICK CATCHER-B Hospital - ty C: [address], [address], [place] [address] , Ph. 2022-03-19 2022-03-19 Outpatient Ferguson_Jazzy [facility]AL[facility] [id number] [place] 00:00:00 00:00:00 bin [id number] [facility] 2022 Outpatient WATERS_S [facility] [id number] [place] 00:00:00 00:00:00 0601 Commun i ty Hospita Clinics 2022-01-20 2022-01-20 Outpatient WATERS_S [facility] [id number] [place] 02:36:00 02:36:00 0531 Commun i ty Hospita [facility] 2022-01-20 2022-01-20 Outpatient Vikrametilio, [facility] [id number] 00:00:00 00:00:00 Kelsey [id number] 2022-01-20 2022-01-20 Kelsey [facility] [place] - [place] [facility] 00:00:00 00:00:00 [facility] mmuni RETAIL SUPPORT ASSOCIATE-BRICK CATCHER-B [facility] C: [address], [address], [place] [address] , Ph. 2021-12-30 2021-12-30 Outpatient Ferguson[facility] [id number]00 09:48:00 bin [id number] da [facility] 2021-12-20 2021-12-20 Emergency Ramya, .[id number] Methodi 10:48:00 14:13:00 Jonah Freedman [id number] 3.430.2.7 Hospit a .[id number] l .8 2021-12-20 2021-12-20 [facility] [id number] [place] 00:00:00 00:00:00 JONAH [facility] 2021-12-16 2021-12-16 Outpatient WATERS_S [facility] [id number] [place] 02:47:00 02:47:00 0426 Commun i ty Hospita l Clinics 2021-10-30 2021-10-30 Outpatient WATERS_S [facility] [id number] [place] 12:58:00 12:58:00 0310 [facility] 2021-10-30 2021-10-30 Outpatient Priscila [facility] [id number] 00:00:00 00:00:00 Samra [id number] 2021-10-30 2021-10-30 Samra [facility] [place] - [place] Randall 00:00:00 00:00:00 [facility] Comm uni RETAIL SUPPORT ASSOCIATE-HAND FLESHER-C: Hospital - ty [address] [facility] Clinics [address], [facility] [address] , Ph. Results Test Description Test Time Test Comments Results Result Comments Source Urine culture 2021-12-20 16:58:00 Test Item Value Reference Range Interpretation Comme nts Urine culture (test code = [id number]) SEE COMMENT Bacteriuria screen negative. [facility] in Blood by [id number] 11:30:00 Test Item Value Reference Range Interpretation Comments Gilchrist (test code = Gilchrist) positive [facility]
--- NOTE | 2022-07-03 12:21 | RAD REPORT ---
EXAM DESCRIPTION: RAD - Neck Soft Tissue - 07/03/2022 11:56 am CLINICAL HISTORY: PAIN COMPARISON: No comparisons FINDINGS: Prevertebral soft tissues are normal. Epiglottis and aryepiglottic folds are normal. Air c olumn is patent. No foreign body is seen.Notable anterior-posterior osteophytosis seen lower cervical spine. IMPRESSION: No acute finding demonstrated.
[2022-07-03] MEDS ORDERED: METHYLPREDNISOLONE 125 MG INJ ONE (14:54)
[2022-07-03] MEDS ORDERED: MORPHINE 4 MG/ML SYR ONE (14:55)
--- NOTE | 2022-07-03 15:47 | RAD REPORT ---
EXAM DESCRIPTION: US - Extremity Nonvascular Limited - 07/03/2022 3:12 pm CLINICAL HISTORY: SWELLING COMPARISON: Neck Soft Tissue dated 07/03/2022 FINDINGS: Focused ultrasound of the neck to evaluate. No sonographic abnormality identified. Bilater al lymph nodes noted which are reactive size. IMPRESSION: No sonographic abnormality identified at the neck.
[2022-07-03] MEDS ORDERED: FENTANYL CITR 100 MCG/2 ML ONE (15:48)
--- NOTE | 2022-07-03 16:47 | ER ---
Nurse's Notes [facility] Name: Helen Villagran Age: 42 yrs Sex: Female : 1980 Arrival Date: 07/03/2022 Time: 10:57 Bed 17 Private MD: Diagnosis: Pain in throat Presentation: 07/03 11:30 Chief complaint: Patient states: "Wednesday evening, I got a new medication, and when I ss took it, It felt like it got stuck in my throat. It's felt like there is something in there ever since. They scoped me yesterday, didn't find anything and they were going to do an ultrasound. Well, I took a Tylenol #3 and immediately, it stuck." Denies trouble breathing.". Coronavirus screen: Client denies travel out of the [place] in the last 14 days. Ebola Screen: Patient denies exposure to infectious person. Patient denies travel to an Ebola-affected area in the 21 days before illness onset. Initial Sepsis Screen: Does the patient meet any 2 criteria? No. Patient's initial sepsis screen is negative. Does the patient have a suspected source of infection? No. Patient's initial sepsis screen is negative. Risk Assessment: Do you want to hurt yourself or someone else? Patient reports no desire to harm self or others. Onset of symptoms was July 03, 2022. 11:30 Method Of Arrival: Ambulatory ss 11:30 Acuity: DARIAN 3 ss Triage Assessment: 17:08 General: Appears in no apparent distress. comfortable, Behavior is calm, cooperative, db appropriate for age, quiet. 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 - Social history:: Smoking status: Patient denies any tobacco usage or history of. Screenin:40 Abuse screen: Denies threats or abuse. Denies injuries from another. Nutritional db screening: No deficits noted. Tuberculosis screening: No symptoms or risk factors identified. Fall Risk None identified. No fall in past 12 months (0 pts). No secondary diagnosis (0 pts). No IV (0 pts). Ambulatory Aid- None/Bed Rest/Nurse Assist (0 pts). Gait- Normal/Bed Rest/Wheelchair (0 pts) Mental Status- Oriented to own ability (0 pts). Total [place] Scale indicates No Risk (0-24 pts). Assessment: 13:23 Reassessment: Patient appears in no apparent distress at this time. Patient is alert, db oriented x 3, equal unlabored respirations, skin warm/dry/pink. neck discomfort with difficulty swallowing. 15:38 Reassessment: patient given warm pack for IM injection site. Pain: Complains of pain in db neck. Neuro: No deficits noted. Level of Consciousness is awake, alert, obeys commands, Oriented to person, place, time, situation, Appropriate for age. 16:30 Reassessment: Patient appears in no apparent distress at this time. Patient and/or db family updated on plan of care and expected duration. Pain level reassessed. Patient is alert, oriented x 3, equal unlabored respirations, skin warm/dry/pink. states has only discomfort Patient states feeling better. Patient states symptoms have improved. Respiratory: No deficits noted. Airway is patent. Vital Signs: 11:30 BP 140 / 93; Pulse 65; Resp 16; Temp 98.1; Pulse Ox 99% on R/A; Weight 82.1 kg; Height ss 5 ft. 4 in. (162.56 cm); Pain 5/10; 15:15 BP 149 / 73; Pulse 60; Resp 16; Pulse Ox 100% on R/A; db 16:30 BP 142 / 93; Pulse 59; Resp 16; Pulse Ox 100% on R/A; db 11:30 Body Mass Index 31.07 (82.10 kg, 162.56 cm) ED Course: 10:57 Patient arrived in ED. as 11:05 Dipak Ortega is PHCP. jl9 11:05 Mahendra Walker MD is Attending Physician. jl9 11:35 Triage completed. ss 11:35 Arm band placed on right wrist. ss 11:57 XRAY Neck Soft Tissue In Process Unspecified. EDMS 13:05 Junie David, RN is Primary Nurse. db 15:14 US Extrmty Nonvasular Limited: Neck US. Patient c/o trouble swallowing. Has US order EDMS from ENT In Process Unspecified. 16:30 Patient has correct armband on for positive identification. Bed in low position. Side db rails up X 1. 16:30 No provider procedures requiring assistance completed. Patient did not have IV access db during this emergency room visit. Administered Medications: 15:20 Drug: SOLU-Medrol (methylPREDNISolone sodium succinate) 125 mg Route: IM; Site: right db deltoid; 16:04 Follow up: Response: No adverse reaction; No change in condition db 15:38 Not Given (Patient Refused): morphine 4 mg IM once db 15:55 Drug: fentaNYL (PF) 50 mcg Route: IM; Site: left deltoid; db 17:10 Follow up: Response: No adverse reaction db Medication: 16:30 VIS not applicable for this client. db Outcome: 16:30 Discharged to home ambulatory. db 16:30 Condition: stable 16:30 Discharge instructions given to patient, Instructed on discharge instructions, follow up and referral plans. Demonstrated understanding of instructions, follow-up care. 16:46 Discharge ordered by MD. white 17:10 Patient left the ED. db Signatures: Dispatcher [employer] EDMS Lilliana Lindsay Shelby, RN RN Dipak Stone9 Junie David, RN RN db
--- NOTE | 2022-07-03 16:47 | EDPHYS ---
Physician Documentation [facility] Name: Helen Villagran Age: 42 yrs Sex: Female : 1980 Arrival Date: 07/03/2022 Time: 10:57 Bed 17 Private MD: ED Physician Mahendra Walker HPI: 07/03 12:23 This 42 yrs old Black Female presents to ER via Ambulatory with complaints of possibly jl9 having a pill stuck in her throat. Patient has been having swallowing issues and sees ENT. . 12:23 The patient presents with a foreign body sensation in the throat. Onset: The jl9 symptoms/episode began/occurred yesterday. Associated signs and symptoms: The patient has no apparent associated signs or symptoms. The patient has experienced similar episodes in the past. 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 - Social history:: Smoking status: Patient denies any tobacco usage or history of. ROS: 12:24 Constitutional: Negative for fever, chills, and weight loss, Eyes: Negative for injury, jl9 pain, redness, and discharge. 12:24 Neck: Negative for injury, pain, and swelling, Cardiovascular: Negative for chest pain, palpitations, and edema, Respiratory: Negative for shortness of breath, cough, wheezing, and pleuritic chest pain, Abdomen/GI: Negative for abdominal pain, nausea, vomiting, diarrhea, and constipation, Back: Negative for injury and pain, : Negative for injury, bleeding, discharge, and swelling, MS/Extremity: Negative for injury and deformity, Skin: Negative for injury, rash, and discoloration, Neuro: Negative for headache, weakness, numbness, tingling, and seizure, Psych: Negative for depression, anxiety, suicide ideation, homicidal ideation, and hallucinations, Allergy/Immunology: Negative for hives, rash, and allergies, Endocrine: Negative for neck swelling, polydipsia, polyuria, polyphagia, and marked weight changes, Hematologic/Lymphatic: Negative for swollen nodes, abnormal bleeding, and unusual bruising. 12:24 ENT: Positive for foreign body sensation. Exam: 12:24 Constitutional: This is a well developed, well nourished patient who is awake, alert, jl9 and in no acute distress. Head/Face: Normocephalic, atraumatic. Eyes: Pupils equal round and reactive to light, extra-ocular motions intact. Lids and lashes normal. Conjunctiva and sclera are non-icteric and not injected. Cornea within normal limits. Periorbital areas with no swelling, redness, or edema. ENT: Mucous membranes moist. Neck: Trachea midline, no thyromegaly or masses palpated, and no cervical lymphadenopathy. Supple, full range of motion without nuchal rigidity, or vertebral point tenderness. No Meningismus. Chest/axilla: Normal chest wall appearance and motion. Nontender with no deformity. No lesions are appreciated. Cardiovascular: Regular rate and rhythm with a normal S1 and S2. No gallops, murmurs, or rubs. Normal PMI, no JVD. No pulse deficits. Respiratory: Lungs have equal breath sounds bilaterally, clear to auscultation and percussion. No rales, rhonchi or wheezes noted. No increased work of breathing, no retractions or nasal flaring. Back: No spinal tenderness. No costovertebral tenderness. Full range of motion. Skin: Warm, dry with normal turgor. Normal color with no rashes, no lesions, and no evidence of cellulitis. MS/ Extremity: Pulses equal, no cyanosis. Neurovascular intact. Full, normal range of motion. Neuro: Awake and alert, GCS 15, oriented to person, place, time, and situation. Cranial nerves II-XII grossly intact. Motor strength 5/5 in all extremities. Sensory grossly intact. Cerebellar exam normal. Normal gait. Psych: Awake, alert, with orientation to person, place and time. Behavior, mood, and affect are within normal limits. Vital Signs: 11:30 BP 140 / 93; Pulse 65; Resp 16; Temp 98.1; Pulse Ox 99% on R/A; Weight 82.1 kg; Height ss 5 ft. 4 in. (162.56 cm); Pain 5/10; 15:15 BP 149 / 73; Pulse 60; Resp 16; Pulse Ox 100% on R/A; db 16:30 BP 142 / 93; Pulse 59; Resp 16; Pulse Ox 100% on R/A; db 11:30 Body Mass Index 31.07 (82.10 kg, 162.56 cm) MDM: 12:20 Patient medically screened. jl9 12:25 Data reviewed: vital signs, nurses notes. jl9 16:21 Counseling: I had a detailed discussion with the patient and/or guardian regarding: the jl9 historical points, exam findings, and any diagnostic results supporting the discharge/admit diagnosis, radiology results, the need for outpatient follow up, an ENT specialist, to return to the emergency department if symptoms worsen or persist or if there are any questions or concerns that arise at home. Response to treatment: the patient's symptoms have markedly improved after treatment. 07/03 11:05 Order name: Strep; Complete Time: 16:46 9 07/03 16:17 Order name: Throat Culture EDLA 07/03 11:38 Order name: XRAY Neck Soft Tissue; Complete Time: 12:23 9 07/03 14:25 Order name: US Extrmty Nonvasular Limited: Neck US. Patient c/o trouble swallowing. Has jl9 US order from ENT; Complete Time: 15:50 Administered Medications: 15:20 Drug: SOLU-Medrol (methylPREDNISolone sodium succinate) 125 mg Route: IM; Site: right db deltoid; 16:04 Follow up: Response: No adverse reaction; No change in condition db 15:38 Not Given (Patient Refused): morphine 4 mg IM once db 15:55 Drug: fentaNYL (PF) 50 mcg Route: IM; Site: left deltoid; db 17:10 Follow up: Response: No adverse reaction db Disposition Summary: 07/03/22 16:46 Discharge Ordered Location: Home jl9 Condition: Stable jl9 Diagnosis - Pain in throat jl9 Followup: jl9 - With: Private Physician - When: 1 - 2 days - Reason: Recheck today's complaints, Continuance of care, Re-evaluation by your physician Discharge Instructions: - Discharge Summary Sheet jl9 - Pain Without a Known Cause jl9 - Sore Throat, [id number] jl9 Forms: - Medication Reconciliation Form jl9 - Thank You Letter jl9 - Antibiotic Education jl9 - Prescription Opioid Use jl9 Signatures: Dispatcher [employer] EDJing Banks, RN RN ss Dipak Ortega jl9 Junie David, RN RN db
[2022-07-03 17:28] VITALS: TEMP 98.1
[2022-07-03 17:33] VITALS: O2SAT 100
[2022-07-03 17:37] VITALS: BP 142/93
== END 2022-07-03 17:10 | disposition home or self-care (01) ==
LOC: ER 10:57
DX: R07.0 Pain in throat (principal); Z88.5 Allergy status to narcotic agent; Z88.8 Allergy status to other drugs, medicaments and biological substances
CPT/HCPCS: 87070; 87081; 70360; 76882; 96372; 99283; J3010; J2930

== ENCOUNTER 2022-08-11 11:42 | Observation (INO) | payer BC ==
[2022-08-11 11:53] LABS: Absolute Lymphocytes (CBC) 2.2 K/uL (0.7-4.9); Hematocrit 42.4 % (36.0-45.0); Lymphocytes % 30.2 % (15.3-44.8); MCV 90.3 fL (80-100); MPV 8.8 fL (7.6-11.3)
[2022-08-11 12:15] LABS: SARS-CoV-2 Antigen Rapid Res Negative (Negative)
[2022-08-11] MEDS ORDERED: Ringers Lactate 1,000 ML IV ONE (12:16)
[2022-08-11] MEDS: ONDANSETRON 4 MG/2 ML VIAL ONE ×2 (12:25→15:55)
[2022-08-11 12:38] VITALS: O2SAT 100
[2022-08-11 12:42] LABS: Urine Specific Gravity/Preg >1.030 (1.005-1.030)
[2022-08-11] MEDS ORDERED: LIDOCAINE 2% MPF 5 ML VIAL ONE (12:50)
[2022-08-11] MEDS ORDERED: propofoL 200 MG/20 ML VIAL IV ONE (12:50)
[2022-08-11] MEDS ORDERED: KETOROLAC 30 MG/ML INJ ONE (12:50)
[2022-08-11] MEDS ORDERED: dexAMETHasone 10 MG/ML VIAL ONE (12:50)
[2022-08-11] MEDS ORDERED: FENTANYL CITR 100 MCG/2 ML ONE (12:50)
[2022-08-11] MEDS ORDERED: MIDAZOLAM HCL 2 MG/2 ML INJ ONE (12:50)
[2022-08-11] MEDS ORDERED: ROCURONIUM 50 MG/5 ML VIAL IV ONE (12:51)
[2022-08-11] MEDS ORDERED: ONDANSETRON 4 MG/2 ML VIAL ONE (12:52)
[2022-08-11] MEDS: CEFOXITIN SODIUM 1 GM/VIAL ONE ×2 (13:00→13:35)
--- NOTE | 2022-08-11 13:25 | P.HP ---
Date of Service: 08/11/22 PC: This 42-year-old female presents for a laparoscopic cholecystectomy with intraoperative cholangiogram HPC: Patient has been not feeling well since November of this year. Has had numerous episodes and almost a constant right upper quadrant abdominal pain, radiating into her back. Has been in the hospital on a few occasions this year. Recently had an upper and lower GI. A HIDA scan was read as equivocal. Her gallbladder does not display any stones, but has a positive Cardoso sign today. PSHx: Gastric bypass surgery, 6 para 6 PMHx: Denies any medical problems Social Hx: Allergic to aspirin, dicyclomine Sys R: No cough, wheeze, shortness of breath. No chest pain or palpitations. States that she is usually constipated. This pain however has been truly interfering with her life over the last few months. O/E: Awake alert uncomfortable finds it hard to even sit in a chair HEENT: Nonicteric Chest: Air entry equal bilaterally Abd: Marked tenderness in the right upper quadrant, positive Cardoso sign [place]: Intact Data: Lab work within normal limits Impression: Chronic cholecystitis, biliary colic Plan: I will taken the operating room for laparoscopic possible open cholecystectomy with a cholangiogram. The risks of this procedure have been discussed. The possibility of bleeding, infection, injury to bile ducts blood vessels and intestines has been described. The possible need for an open and/or further surgeries and procedures were explained. The fact that she may still have her abdominal pain, despite being operated on, and undergoing the risks of this are acceptable to her as she states she is miserable with his pain for the last 6 months. She understands and wants to proceed.
[2022-08-11] MEDS ORDERED: GLYCOPYRROLATE 0.2 MG/ML SYR ONE ×2 (14:09→15:25)
[2022-08-11] MEDS ORDERED: NEOSTIGMINE 1 MG/ML -10 ML VIAL ONE (14:10)
[2022-08-11] MEDS ORDERED: MORPHINE 10 MG/ML VIAL ONE (14:31)
--- NOTE | 2022-08-11 14:48 | P.OP ---
Preoperative diagnosis: Cholecystitis with biliary colic Postoperative diagnosis: The same Primary procedure: Laparoscopic cholecystectomy Secondary procedure: Cholangiogram Anesthesia: General Estimated blood loss: Less than 20 cc Specimen: 1 gallbladder and contents Operative Technique: The patient brought the operating room and placed supine on the table. After the induction of adequate general endotracheal anesthesia, the area of the abdomen was prepped with a DuraPrep solution, she was draped in the usual aseptic manner. A subumbilical incision was made. This was brought down through the skin and subcutaneous tissue. The Visiport was used to enter the peritoneal cavity and created pneumoperitoneum to approximately 12 mmHg. It should be noted the patient has a small umbilical hernia. A 5 mm trocar was now placed in the upper midline, and 2 other fives on the right lateral side of the abdomen. The patient was now placed in reverse Trendelenburg. The table was rolled to the left. We could visualize down the right upper quadrant. It was interesting to note the amount of increased haustrations there are of the right ascending and transverse colon. These show marked hypertrophy of the muscles both longitudinal and transverse. The gallbladder was identified. It was found to be redundant in nature. A grasper was placed on the fundus of the by Guerra's pouch. Applying lateral traction we were now able to expose and dissect out both the cystic duct and artery. Having obtained the critical view, a clip was placed between the gallbladder and the cystic duct. An opening was made into the cystic duct through which we obtained our cholangiogram we were able to see good flow contrast into the duodenum. No filling defects were noted. It was interesting to see that there is how long the cystic duct was and its low insertion point. Clips were then placed on the distal portion of the cystic duct after removing the cholangiocatheter. The artery was now clipped and divided. The gallbladder was then dissected free from the liver bed, placed into an Endo Catch, and brought out through the umbilical trocar site attention was turned back towards the right upper quadrant. Once again the area was inspected to ensure adequate hemostasis. The umbilical trocar site was approximated with 2 absorbable sutures placed with the Endo Close. I did not pursue removing the hernia sac from around the umbilicus. There is a small fascial defect that is about half the size of the tip of the little finger. At this point the pneumoperitoneum was collapsed, the suture was tied, and negar were applied to the skin. At the end of the procedure she was in a stable condition was sent to the recovery room. Needle sponge and instrument count were correct. No drains were placed.
[2022-08-11] MEDS: HYDROMORPHONE HCL 1 MG/ML INJ ONE ×4 (14:51→15:10)
[2022-08-11] MEDS ORDERED: ONDANSETRON 4 MG/2 ML VIAL IV PRN (14:55)
[2022-08-11] MEDS ORDERED: MORPHINE 4 MG/ML SYR IV PRN (14:55)
--- NOTE | 2022-08-11 14:55 | RAD REPORT ---
EXAM DESCRIPTION: RAD - Cholangiogram Oper-Xray Or - 08/11/2022 2:45 pm CLINICAL HISTORY: LAP LEE W IOC COMPARISON: Abdomen Pelvis W Contrast dated 11/17/2021 FINDINGS: Cystic duct injection was performed by operating surgeon. Common bile duct is normal calib er. No evidence of retained duct stone. Total fluoro time: 37 seconds. Three fluoroscopic images submitted.
--- OUTSIDE RECORDS SUMMARY | 2022-08-11 15:23 | XMS REPORT | Continuity of Care Document ---
:1980 Author Organization [facility] t Address [address] [place] [address] Dr. Sorenson [address] [place] [address] Care Team Providers Name Role Phone Asked, No Pcp Primary Care Physician Unavailable RUFUS Attending Clinician Unavailable Jarad Pina DPM Attending Clinician Kelsey Davidson Attending Clinician [phone] Roberth Attending Clinician Unavailable SALLIE Attending Clinician Unavailable Jonah Bui MD Attending Clinician Samra Francois Attending Clinician [phone] RUFUS Admitting Clinician Unavailable Roberth Admitting Clinician Unavailable SALLIE Admitting Clinician Unavailable Payers Payer Name Policy Type Policy Number Effective Date Expiration Date Jenny rodriguez [place] AMANUEL [id number] 2022 ADVANTAGE (O) 00:00:00 Problems Condition Condition Condition Status Onset Resolution Last Treating Co mments Source Name Details Category Date Date Treatment Clinician Date Migraine Migraine Problem Active 2021-08 [facility] 08-31 [facility] 00[facility]: ty [facility] Pain in Pain in Problem Active 2021-08 [place] throat Throat 08-31 Communi 00:00: ty 00 [facility] Allergic Allergic Problem Active 2021-08 [place] rhinitis Rhinitis 0-10 Commun i 00:00: ty 00 [facility] Pain in Pain in Problem Active [place] right foot Right Foot 9-17 Co mmuni 00:00: ty 00 [facility]osp[facility] Clinics Ganglion Ganglion Problem Active [facility] cyst Cyst 9-15 Communi 00:00: ty 00 [facility] Pain in Pain in Problem Active [place] left foot Left Foot 05-07 Comm uni 00:00: ty 00 [facility] Allergies, Adverse Reactions, Alerts Allergy Allergy Status Severity Reaction(s) Onset Inactive Treating Comm ents Source Name Type Date Date Clinician Aspirin- Propensi Active Rash Method i Sod ty to 12-20 st Bicarb-C adverse 00:00: Hospita itric reaction 00 l Acid s to drug Tramadol Allergy Active Other [place] to Communi substanc ty e Hospita Clinics LIZETTE-DAMIEN Allergy Active Anaphylaxis Sw eeny TZER to Communi PLUS substanc ty [facility] Social History Social Habit Start Date Stop Date Quantity Comments Source Alcohol intake 2021-12-20 2021-12-20 [facility] 00:00:00 00:00:00 non-drinker Hospital (finding) Tobacco use and 2021-12-20 2021-12-20 Smokeless tobacco [facility] exposure 00:00:00 00:00:00 non-user Hospital Sex Assigned At [birth year] [facility] 00:00:[facility]:00 Hospital Smoking Status Start Date Stop Date Source Never smoked tobacco [facility] Medications Ordered Filled Start Stop Current Ordering Indication Dosage Frequency Signature Comments Components Source Medication Medication Date Date Medication? Clinician (SIG) Name Name Bairon 40 Bairon 40 2021-08 No Kenalog 40 [place] mg/mL mg/mL 0-10 mg/mL Communi suspension suspension 16:35: suspension ty for for 00 for Hospita injectionTa injectionTa injectionT l ke 40 mg by ke 40 mg by leonides 40 mg Clinics injection injection by route. route. injection route. Kenalog 40 Kenalog 40 2021-08 No Kenalog 40 [place] mg/mL mg/mL 0-10 mg/mL Communi suspension suspension 16:35: suspension ty for for 00 for Hospita injectionTa injectionTa injectionT l ke 40 mg by ke 40 mg by leonides 40 mg Clinics injection injection by route. route. injection route. ondansetron 4mg Q8H Take 1 Met hodi ODT 12-20 05-08 tablet (4 st (ZOFRAN-ODT 00:00: 04:59 mg total[facility] 4 MG 00 :00 by mouth l disintegrat every 8 ing tablet (eight) hours as needed for nausea or vomiting for up to 7 days. ondansetron 2021-0 2021- No 4mg Q8H Take 1 Met hodi ODT 4-30 05-08 tablet (4 st (ZOFRAN-ODT 00:00: 04:59 mg total) [facility] ) 4 MG 00 :00 by mouth l disintegrat every 8 ing tablet (eight) hours as needed for nausea or vomiting for up to 7 days. Advair Advair No Advair [place] Diskus 100 Diskus 100 Diskus 100 Communi mcg-50 mcg-50 mcg-50 ty mcg/dose mcg/dose mcg/dose Hos nadine powder for powder for powder for l inhalation inhalation inhalation Clinics INHALE 1 INHALE 1 INHALE 1 PUFF TWICE PUFF TWICE PUFF TWICE A DAY BY A DAY BY A DAY BY INHALATION INHALATION INHALATION ROUTE ROUTE ROUTE DIRECTED. DIRECTED. DIRECTED. dicyclomine dicyclomine No 1 QID dicyclomin [place] 20 mg 20 mg e 20 mg Communi tablet Take tablet Take tablet ty 1 tablet 4 1 tablet 4 Take 1 H ospita times a day times a day tablet 4 l by oral by oral times a Clinic s route as route as day by needed. needed. oral route as needed. gabapentin gabapentin No gabapentin [place] 100 mg 100 mg 100 mg Communi capsule capsule capsule ty TAKE 1 TAKE 1 TAKE 1 Hospita CAPSULE BY CAPSULE BY CAPSULE BY l MOUTH TWICE MOUTH TWICE MOUTH Clinics A DAY A DAY TWICE A DAY levothyroxi levothyroxi No levothyrox [place] ne 50 mcg ne 50 mcg ine 50 mcg Communi tablet Take tablet Take tablet ty 1 tablet 1 tablet Take 1 Hospi ta every day every day tablet l by oral by oral every day Clin ics route. route. by oral route. acetaminoph acetaminoph No 1 Q8H acetaminop [place] en 300 en 300 hen 300 Communi mg-codeine mg-codeine mg-codeine ty 30 mg 30 mg 30 mg Hospita tablet Take tablet Take tablet l 1 tablet 1 tablet Take 1 Clini cs every 8 every 8 tablet hours by hours by every 8 oral route oral route hours by as needed. as needed. oral route as needed. Advair Advair No Advair [place] Diskus 100 Diskus 100 Diskus 100 Communi mcg-50 mcg-50 mcg-50 ty mcg/dose mcg/dose mcg/dose Hos nadine powder for powder for powder for l inhalation inhalation inhalation Clinics INHALE 1 INHALE 1 INHALE 1 PUFF TWICE PUFF TWICE PUFF TWICE A DAY BY A DAY BY A DAY BY INHALATION INHALATION INHALATION ROUTE ROUTE ROUTE DIRECTED. DIRECTED. DIRECTED. dicyclomine dicyclomine No 1 QID dicyclomin [place] 20 mg 20 mg e 20 mg Communi tablet Take tablet Take tablet ty 1 tablet 4 1 tablet 4 Take 1 H ospita times a day times a day tablet 4 l by oral by oral times a Clinic s route as route as day by needed. needed. oral route as needed. EpiPen EpiPen No 1auto(s EpiPen [place] 2-Ludwin 0.3 2-Ludwin 0.3 ) 2-Ludwin 0.3 Communi mg/0.3 mL mg/0.3 mL mg/0.3 mL ty injection, injection, injection, Hospita auto-inject auto-inject auto-injec l or Take 1 or Take 1 tor Take 1 Clinics auto by auto by auto by injection injection injection route as route as route as needed. needed. needed. gabapentin gabapentin No gabapentin [place] 100 mg 100 mg 100 mg Communi capsule capsule capsule ty TAKE 1 TAKE 1 TAKE 1 Hospita CAPSULE BY CAPSULE BY CAPSULE BY l MOUTH TWICE MOUTH TWICE MOUTH Clinics A DAY A DAY TWICE A DAY levothyroxi levothyroxi No levothyrox [place] ne 50 mcg ne 50 mcg ine 50 mcg Communi tablet Take tablet Take tablet ty 1 tablet 1 tablet Take 1 Hospi ta every day every day tablet l by oral by oral every day Clin ics route. route. by oral route. gabapentin gabapentin No gabapentin [place] 100 mg 100 mg 100 mg Communi capsule capsule capsule ty Take 1 Take 1 Take 1 Hospita capsule capsule capsule l twice a day twice a day twice a Clinics by oral by oral day by route. route. oral route. Kenalog 40 Kenalog 40 No 40mg Kenalog 40 [place] mg/mL mg/mL mg/mL Communi suspension suspension suspension ty for for for Hospita injection injection injection l Take 40 mg Take 40 mg Take 40 mg Clinics by by by injection injection injection route. route. route. acetaminoph acetaminoph No 1 Q7H acetaminop [place] en 300 en 300 hen 300 Communi mg-codeine mg-codeine mg-codeine ty 30 mg 30 mg 30 mg Hospita tablet Take tablet Take tablet l 1 tablet 1 tablet Take 1 Clini cs every 6-8 every 6-8 tablet hours by hours by every 6-8 oral route oral route hours by as needed. as needed. oral route as needed. gabapentin gabapentin No 1capsul BID gabapentin [place] 100 mg 100 mg e(s) 100 mg Communi capsule capsule capsule ty Take 1 Take 1 Take 1 Hospita capsule capsule capsule l twice a day twice a day twice a Clinics by oral by oral day by route. route. oral route. acetaminoph acetaminoph No 1 Q8H acetaminop [place] en 300 en 300 hen 300 Communi [...] Name COVID-19, mRNA, COVID-19, mRNA, 2022-03-17 Completed [facility] LNP-S, PF, 30 LNP-S, PF, 30 00:00:00 Hospital Clinics mcg/0.3 mL dose mcg/0.3 mL dose (LoveSpaceBioTelekenex) (P2P-Next) COVID-19, mRNA, COVID-19, mRNA, 2022-03-17 Completed [facility] LNP-S, PF, 30 LNP-S, PF, 30 00:00:00 Hospital Clinics mcg/0.3 mL dose mcg/0.3 mL dose (LoveSpaceBioTelekenex) (P2P-Next) COVID-19, mRNA, COVID-19, mRNA, 2022-03-17 Completed [facility] LNP-S, PF, 30 LNP-S, PF, 30 00:00:00 Hospital Clinics mcg/0.3 mL dose mcg/0.3 mL dose (LoveSpaceBioNTech) (Pfizer-BioNTech) COVID-19, mRNA, COVID-19, mRNA, 2021-03-04 Completed [facility] LNP-S, PF, 100 LNP-S, PF, 100 00:00:00 Hospit al Clinics mcg/0.5 mL dose mcg/0.5 mL dose (Moderna) (Moderna) COVID-19, mRNA, COVID-19, mRNA, 2021-03-04 Completed [facility] LNP-S, PF, 100 LNP-S, PF, 100 00:00:00 Hospit al Clinics mcg/0.5 mL dose mcg/0.5 mL dose (Moderna) (Moderna) COVID-19, mRNA, COVID-19, mRNA, 2021-03-04 Completed [facility] LNP-S, PF, 100 LNP-S, PF, 100 00:00:00 Hospit al Clinics mcg/0.5 mL dose mcg/0.5 mL dose (Moderna) (Moderna) COVID-19, mRNA, COVID-19, mRNA, 2021-03-04 Completed [facility] LNP-S, PF, 100 LNP-S, PF, 100 00:00:00 Hospit al Clinics mcg/0.5 mL dose mcg/0.5 mL dose (Moderna) (Moderna) COVID-19, mRNA, COVID-19, mRNA, 2021-03-04 Completed [facility] LNP-S, PF, 100 LNP-S, PF, 100 00:00:00 Hospit al Clinics mcg/0.5 mL dose mcg/0.5 mL dose (Moderna) (Moderna) COVID-19, mRNA, COVID-19, mRNA, 2021-03-04 Completed [facility] LNP-S, PF, 100 LNP-S, PF, 100 00:00:00 Hospit al Clinics mcg/0.5 mL dose mcg/0.5 mL dose (Moderna) (Moderna) COVID-19, mRNA, COVID-19, mRNA, 2020-11-26 Completed [facility] LNP-S, PF, 100 LNP-S, PF, 100 00:00:00 Hospit al Clinics mcg/0.5 mL dose mcg/0.5 mL dose (Moderna) (Moderna) COVID-19, mRNA, COVID-19, mRNA, 2020-11-26 Completed [facility] LNP-S, PF, 100 LNP-S, PF, 100 00:00:00 Hospit ak Clinics mcg/0.5 mL dose mcg/0.5 mL dose (Moderna) (Moderna) COVID-19, mRNA, COVID-19, mRNA, 2020-11-26 Completed [facility] LNP-S, PF, 100 LNP-S, PF, 100 00:00:00 Hospit ak Clinics mcg/0.5 mL dose mcg/0.5 mL dose (Moderna) (Moderna) COVID-19, mRNA, COVID-19, mRNA, 2020-11-26 Completed [facility] LNP-S, PF, 100 LNP-S, PF, 100 00:00:00 Hospit ak Clinics mcg/0.5 mL dose mcg/0.5 mL dose (Moderna) (Moderna) COVID-19, mRNA, COVID-19, mRNA, 2020-11-26 Completed [facility] LNP-S, PF, 100 LNP-S, PF, 100 00:00:00 Hospit ak Clinics mcg/0.5 mL dose mcg/0.5 mL dose (Moderna) (Moderna) COVID-19, mRNA, COVID-19, mRNA, 2020-11-26 Completed [facility] LNP-S, PF, 100 LNP-S, PF, 100 00:00:00 Hospit ak Clinics mcg/0.5 mL dose mcg/0.5 mL dose (Moderna) (Moderna) Vital Signs Vital Name Observation Time Observation Value Comments Source BP Diastolic 2022-07-01 00:00:00 72 mm[Hg] [facility] s Height 2022-07-01 00:00:00 64 [in_i] [facility] s BMI (Body Mass 2022-07-01 00:00:00 31.2 kg/m2 [facility] s BP Systolic 2022-07-01 00:00:00 113 mm[Hg] [facility] s Body Weight 2022-07-01 00:00:00 2912 [oz_av] [facility] s BP Diastolic 2022-06-29 00:00:00 86 mm[Hg] [facility] s Height 2022-06-29 00:00:00 64 [in_i] [facility] s BMI (Body Mass 2022-06-29 00:00:00 31.2 kg/m2 [facility]) [facility] s BP Systolic 2022-06-29 00:00:00 132 mm[Hg] [facility] s Body Weight 2022-06-29 00:00:00 2905.6 [oz_av] [facility] s BP Diastolic 2022-06-01 00:00:00 80 mm[Hg] [facility] s Height 2022-06-01 00:00:00 64 [in_i] [facility] s BMI (Body Mass 2022-06-01 00:00:00 32.3 kg/m2 [facility]) [facility] s BP Systolic 2022-06-01 00:00:00 123 mm[Hg] [facility] s Body Weight 2022-06-01 00:00:00 3008 [oz_av] [facility] s BP Diastolic 2022-05-07 00:00:00 87 mm[Hg] [facility] s Height 2022-05-07 00:00:00 64 [in_i] [facility] s BMI (Body Mass 2022-05-07 00:00:00 32.1 kg/m2 [facility]) [facility] s BP Systolic 2022-05-07 00:00:00 135 mm[Hg] [facility] s Body Weight 2022-05-07 00:00:00 2988.8 [oz_av] [facility] s BP Diastolic 2022-01-20 00:00:00 73 mm[Hg] [facility] s Height 2022-01-20 00:00:00 64 [in_i] [facility] s BMI (Body Mass 2022-01-20 00:00:00 31.5 kg/m2 [facility] s BP Systolic 2022-01-20 00:00:00 129 mm[Hg] [facility] s Body Weight 2022-01-20 00:00:00 2934.4 [oz_av] [facility] s BP Diastolic 2021-10-30 00:00:00 91 mm[Hg] [facility] s Height 2021-10-30 00:00:00 64 [in_i] [facility] s BMI (Body Mass 2021-10-30 00:00:00 33.6 kg/m2 [facility]) [facility] s BP Systolic 2021-10-30 00:00:00 150 mm[Hg] [facility] s Body Weight 2021-10-30 00:00:00 3132.8 [oz_av] [facility] s Systolic blood 2021-12-20 18:34:00 119 mm[Hg] [facility] pressure Diastolic blood 2021-12-20 18:34:00 60 mm[Hg] [facility] pressure Heart rate 2021-12-20 18:34:00 61 /min [facility] Body temperature 2021-12-20 18:34:00 37.06 Lisa [facility] Respiratory rate 2021-12-20 18:34:00 17 /min [facility] Oxygen saturation in 2021-12-20 18:34:00 96 /min [facility] Arterial blood by Pulse oximetry Body height 2021-12-20 15:46:00 165.1 cm [facility] Body weight 2021-12-20 15:46:00 83.008 kg [facility] BMI 2021-12-20 15:46:00 30.45 kg/m2 [facility] Procedures Procedure Date / Time Performing Clinician Source Performed MAMMO, screening, 2022-06-01 00:00:00 Nasrin venegas, [facility] XR FOOT 3+ VW LEFT 2022-05-08 15:55:56 Jarad Pina [facility] XR ANKLE 3+ VW LEFT 2022-05-08 15:55:41 Jarad Pina [facility] CT ABDOMEN PELVIS W 2021-12-20 18:48:55 Ray, [facility] CONTRAST URINE CULTURE 2021-12-20 16:29:00 Ray, [facility] HCG QUALITATIVE, SERUM 2021-12-20 16:29:00 Ray [facility] SCREEN HC COMPLETE BLD COUNT 2021-12-20 16:29:00 Ray [facility] W/AUTO DIFF COMPREHENSIVE METABOLIC 2021-12-20 16:29:00 [facility] PANEL LIPASE LEVEL 2021-12-20 16:29:00 [facility] AND 2021-12-20 16:29:00 [place] [facility] MICROSCOPY, WITH REFLEX TO CULTURE ESTIMATED GFR 2021-12-20 16:29:00 [facility] US, pelvis, complete 2021-10-30 00:00:00 [facility] Gastric Bypass for 2020-12-11 00:00:00 [facility] Plan of Care Planned Activity Planned Date Details Comments Source Future Scheduled Test 2022-08-10 Hepatitis C [facility] 18:01:35 screening (procedure) [code = 300264797] Future Scheduled Test 2022-08-10 Screening for [facility] 18:01:35 malignant neoplasm of cervix (procedure) [code = [id number]] Future Scheduled Test 2022-08-10 BREAST CANCER [facility] 18:01:35 SCREENING [code = BREAST CANCER SCREENING] Future Scheduled Test 2022-08-10 COVID-19 VACCINE (4 [facility] 18:01:35 - Booster) [code = COVID-19 VACCINE (4 - Booster)] Future Scheduled Test 2022-08-10 INFLUENZA VACCINE [facility] 18:01:35 [code = INFLUENZA VACCINE] Future Scheduled Test 2022-07-03 HEPATITIS B VACCINES [facility] 10:59:24 (1 of 3 - 3-dose series) [code = HEPATITIS B VACCINES (1 of 3 - 3-dose series)] Future Scheduled Test 2022-07-03 Hepatitis C Method t [facility] 10:59:24 screening (procedure) [code = 633112991] Future Scheduled Test 2022-07-03 Screening for [facility] 10:59:24 malignant neoplasm of cervix (procedure) [code = 460219128] Future Scheduled Test 2022-07-03 BREAST CANCER [facility] 10:59:24 SCREENING [code = BREAST CANCER SCREENING] Future Scheduled Test 2022-07-03 COVID-19 VACCINE (4 [facility] 10:59:24 - Booster) [code = COVID-19 VACCINE (4 - Booster)] Future Scheduled Test 2022-07-03 INFLUENZA VACCINE M [facility] 10:59:24 [code = INFLUENZA VACCINE] Diagnostic Test 2021-10-30 mononucleosis, [place] Com munity Pending 00:00:00 heterophile Ab, Hospital Cli nics blood [code = mononucleosis, heterophile Ab, blood] Diagnostic Test 2021-10-30 CBC w/ auto [facility]ending 00:00:00 [code = CBC w/ auto Hospital Clinics diff] Diagnostic Test 2021-10-30 CMP, serum or plasma [facility] Pending 00:00:00 [code = CMP, serum Hospital Clinics or plasma] Diagnostic Test 2021-10-30 lipids, total, serum [facility] Pending 00:00:00 [code = lipids, Hospital Cli nics total, serum] Diagnostic Test 2021-10-30 vitamin D, [place] Commu nity Pending 00:00:00 25-hydroxy, total, Hospital Clinics serum [code = vitamin D, 25-hydroxy, total, serum] Instructions [facility] Encounters Start End Encounter Admission Attending Care Care Encounter Source Date/Time Date/Time Type Type Clinicians Facility Department ID 2022-07-01 2022-07-01 Outpatient CHRETIEN_F [facility] [id number] [place] 00:00:00 00:00:00 1109 [facility] i ty [facility] Clinics 2022-07-01 2022-07-01 Kelsey [facility] [place] [id number] [place] 00:00:00 00:00:00 [facility] SUPERVISOR GEAR REPAIR-INHALATION THERAPY AIDE-B Hospital - ty C: [address], [address], [place] [address] , Ph. 2022-06-29 2022-06-29 Outpatient CHRETIEN_F [facility] [id number] [place] 00:00:00 00:00:00 1107 Commun i ty Hospita [facility] 2022-06-29 2022-06-29 Kelsey [facility] [place] [id number] [place] 00:00:00 00:00:00 Lety [facility] Co mmuni SUPERVISOR GEAR REPAIR-INHALATION THERAPY AIDE-B Hospital - ty C: [address], [address], [place] [address] , Ph. 2022-06-01 2022-06-01 Outpatient CHRETIEN_F [facility] [id number] [place] 00:00:00 00:00:00 1010 Commun i ty Hospita [facility] 2022-06-01 2022-06-01 Kelsey [facility] [place] 00:00:00 00:00:00 Lety [facility] Co sherlyuni SUPERVISOR GEAR REPAIR-INHALATION THERAPY AIDE-B Hospital - ty C: [address], [address], [place] [address] , Ph. 2022-05-08 2022-05-08 Transcribe Jarad Pina [id number] [facility] 00:00:00 00:00:00 Orders [place] [id number] 3.430.2.7 Hospit a .3.037960 l .8 2022-05-08 2022-05-08 Outpatient MARCUS JARAD [facility] [id number] [place] 00:00:00 00:00:[address] 2022-05-08 2022-05-08 Outpatient MARCUS JARAD [facility] [id number] [place] 00:00:00 00:00:[address] 2022-05-08 2022-05-08 Transcribe Jarad Pina [id number] [id number] [facility] 00:00:00 00:00:00 Orders Hung [id number] 3.430.2.7 Hospit a .3.341395 l .8 2022-05-07 2022-05-07 Outpatient CHRETIEN_F [facility] [id number] [place] 00:00:00 00:00:00 0915 Commun i ty Hospita l Clinics 2022-05-07 2022-05-07 Outpatient Vikrametilio, [facility] [id number] 00:00:00 00:00:00 Kelsey [id number] 2022-05-07 2022-05-07 Kelsey [facility] [place] 15 [place] 00:00:00 [facility]00[facility] SUPERVISOR GEAR REPAIR-INHALATION THERAPY AIDE-B [facility] C: [address], [address], [place] [address] , Ph. 2022-03-19 2022-03-19 Outpatient [facility]on[facility]Jazzy [facility] [id number] [place] 00:00:00 00:00:00 bin [id number] da [facility] 2022 2022 Outpatient WATERS_S [facility] [id number] [place] 00:00:00 00:00:00 0601 Commun i ty Hospita l Clinics 2022-01-20 2022-01-20 Outpatient WATERS_S [facility] [id number] [place] 02:36:00 02:36:00 0531 Commun i ty Hospita l Clinics 2022-01-20 2022-01-20 Outpatient Chretien, [facility] [id number] 00:00:00 00:00:00 Kelsey [id number] 2022-01-20 2022-01-20 Kelsey [facility] [place] 00:00:00 00:00:00 Chrantony [facility] Co mmuni SUPERVISOR GEAR REPAIR-INHALATION THERAPY AIDE-B Hospital - ty C: [address], [facility] [address] [facility] [address], [place] [address] , Ph. 2021-12-30 2021-12-30 Outpatient Ferguson_Ro [facility] [id number] [place] 09:48:00 09:48:00 bin [id number] da [facility] h Program 2021-12-20 2021-12-20 Emergency Guharoy, 1.2.840.1 [id number] [facility] 10:48:00 14:13:[id number] 3.430.2.7 Hospit a .3.154601 l .8 2021-12-20 2021-12-20 Emergency Guharoy, 1.2.840.1 [id number] [facility] 10:48:00 14:13:[id number] 3.430.2.7 Hospit a .3.191585 l .8 2021-12-16 2021-12-16 Outpatient WATERS_S [facility] 2021 [place] 02:47:00 02:47:00 0426 Commun i ty Hospita l Clinics 2021-10-30 2021-10-30 Outpatient WATERS_S [facility] 2021 [place] 12:58:00 12:58:00 0310 Commun i ty Hospita l Clinics 2021-10-30 2021-10-30 Outpatient [facility] [id number] 00:00:00 00:00:00 Samra [id number] 2021-10-30 2021-10-30 [facility] [place] 10 [place] 00:00:00 00:00:00 Priscila [facility] Comm uni SUPERVISOR GEAR REPAIR-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 Results Test Description Test Time Test Comments Results Result Comments Source Urine culture 2021-12-20 16:58:00 Test Item Value Reference Range Interpretation Comme nts Urine culture (test code = [id number]) SEE COMMENT [facility]. [id number] 16:58:00 Test Item Value Reference Range Interpretation Comments Urine culture (test SEE COMMENT Bacteriu mayra screen code = [id number]) negative. [facility] [Presence] in Blood by [id number] 11:30:00 Test Item Value Reference Range Interpretation Comments Berrien (test code = Berrien) positive [facility]
[2022-08-11] MEDS ORDERED: DIPHENHYDRAMINE 50 MG/ML VIAL ONE (16:20)
[2022-08-11 16:30] VITALS: BMI 29.6
[2022-08-11] MEDS ORDERED: DIPHENHYDRAMINE 50 MG/ML VIAL IV ONE (17:00)
[2022-08-11] MEDS: HYDROCODONE/APAP 7.5/325 MG TAB PO PRN (19:37)
[2022-08-12] MEDS: HYDROCODONE/APAP 7.5/325 MG TAB PO PRN (01:42)
[2022-08-12] MEDS ORDERED: INFLUENZA VACCINE (for 6+ mo) 0.5 ML DOSE IMVAC ONE (08:00)
[2022-08-12] MEDS ORDERED: CODEINE 30MG/APAP 300MG TAB PO PRN (09:23)
[2022-08-12 12:43] VITALS: BP 133/81; TEMP 98.1
== END 2022-08-12 12:25 | disposition home or self-care (01) ==
LOC: OR 11:42 → 2ND-WC 15:20 → INTOOBSV 15:20
PROVIDERS: ADMIT Surgery; ATTEND Surgery
PROC: BF532Z0 Other Imaging of Gallbladder and Bile Ducts using Fluorescing Agent, Intraoperative (ICD-10-PCS; 2022-08-11)
PROC: 0FT44ZZ Resection of Gallbladder, Percutaneous Endoscopic Approach (ICD-10-PCS; principal; 2022-08-11 11:00)
DX: K80.10 Calculus of gallbladder with chronic cholecystitis without obstruction (principal); K80.44 Calculus of bile duct with chronic cholecystitis without obstruction; Z20.822 Contact with and (suspected) exposure to COVID-19
CPT/HCPCS: 85025; 80048; 36415; 81025; 88304; 74300; 94010; 87811; 47563; J2704; J2710; J1200; J2001; J2250; J3010; J1100; J1170 ×2; J7120; J0694; J2405 ×3

== ENCOUNTER 2022-10-15 08:20 | Emergency (ER) | payer BC ==
--- OUTSIDE RECORDS SUMMARY | 2022-10-15 08:23 | XMS REPORT | Continuity of Care Document ---
:1980 Author Organization [facility] t Address [address] [place] [address] Dr. Graves[address] [place] [id number] Care Team Providers Name Role Phone Asked, No Pcp Primary Care Physician Unavailable RUFUS Attending Clinician Unavailable Jarad Velazquez DPM Attending Clinician Kelsey Davidson Attending Clinician [phone] Roberth Attending Clinician Unavailable SALLIE Attending Clinician Unavailable Jonah Bui MD Attending Clinician Samra Francois Attending Clinician [phone] RUFUS Admitting Clinician Unavailable Roberth Admitting Clinician Unavailable SALLIE Admitting Clinician Unavailable Payers Payer Name Policy Type Policy Number Effective Date Expiration Date Jenny rodriguez [place] AMANUEL [id number] 2022 ADVANTAGE (O) 00:00:00 Problems Condition Condition Condition Status Onset Resolution Last Treating Co mments Source Name Details Category Date Date Treatment Clinician Date Migraine Migraine Problem Active 2021-08 Sween y 08-31 Communi 00:00: ty [facility] Pain in Pain in Problem Active 2021-08 [facility]acea throat Throat 08-31 Communi 00:00: ty 00 [facility] Allergic Allergic Problem Active 2021-08 Sween y rhinitis Rhinitis 0-10 Commun i 00:00: ty 00 [facility] Clin[facility] Pain in Pain in Problem Active [facility]acea right foot Right Foot 9-17 Co mmuni 00:00: ty 00 [facility]ospita [facility] Clinics Ganglion Ganglion Problem Active Sween y cyst Cyst 9-15 Communi 00:00: ty 00 [facility] Pain in Pain in Problem Active Panacea left foot Left Foot 05-07 Comm uni 00:00: ty 00 [facility] Allergies, Adverse Reactions, Alerts Allergy Allergy Status Severity Reaction(s) Onset Inactive Treating Comm ents Source Name Type Date Date Clinician Aspirin- Propensi Active Rash Method i Sod ty to 12-20 st Bicarb-[facility] 00 l Acid s to drug LIZETTE-DAMIEN Allergy Active Anaphylaxis Sw eeny TZER to Communi PLUS substanc ty [facility] Tr[facility]ol Allergy Active Other Panacea to Communi substanc ty e [facility] Social History Social Habit Start Date Stop Date Quantity Comments Source Alcohol intake 2021-12-20 2021-12-20 [facility] 00:[facility]00 [facility] (finding) Tobacco use and 2021-12-20 2021-12-20 Smokeless tobacco [facility] exposure 00:[facility]:00 [facility]user [facility] Sex Assigned At [birth year] [facility] 00[facility] Smoking Status Start Date Stop Date Source Never smoked tobacco [facility] Medications Ordered Filled Start Stop Current Ordering Indication Dosage Frequency Signature Comments Components Source Medication Medication Date Date Medication? Clinician (SIG) Name Name Bairon 40 Bairon 40 2021-08 No Kenalog 40 Panacea mg/mL mg/mL 0-10 mg/mL Communi suspension suspension 16:35: suspension ty for for 00 for Hospita injectionTa injectionTa injectionT l ke 40 mg by ke 40 mg by leonides 40 mg Clinics injection injection by route. route. injection route. Kenalog 40 Kenalog 40 2021-08 No Kenalog 40 Panacea mg/mL mg/mL 0-10 mg/mL Communi suspension suspension [...] vomiting for up to 7 days. ondansetron 2021- No 4mg Q8H Take 1 Met hodi ODT 4-30 05-08 tablet (4 st (ZOFRAN-ODT 00:00: 04:59 mg total) Hospita ) 4 MG 00 :00 by mouth l disintegrat every 8 ing tablet (eight) hours as needed for nausea or vomiting for up to 7 days. Advair Advair No Advair Panacea Diskus 100 Diskus 100 Diskus 100 Communi mcg-50 mcg-50 mcg-50 ty mcg/dose mcg/dose mcg/dose Hos nadine powder for powder for powder for l inhalation inhalation inhalation Clinics INHALE 1 INHALE 1 INHALE 1 PUFF TWICE PUFF TWICE PUFF TWICE A DAY BY A DAY BY A DAY BY INHALATION INHALATION INHALATION ROUTE ROUTE ROUTE DIRECTED. DIRECTED. DIRECTED. dicyclomine dicyclomine No 1 QID dicyclomin Panacea 20 mg 20 mg e 20 mg Communi tablet Take tablet Take tablet ty 1 tablet 4 1 tablet 4 Take 1 H ospita times a day times a day tablet 4 l by oral by oral times a Clinic s route as route as day by needed. needed. oral route as needed. gabapentin gabapentin No gabapentin Panacea 100 mg 100 mg 100 mg Communi capsule capsule capsule ty TAKE 1 TAKE 1 TAKE 1 Hospita CAPSULE BY CAPSULE BY CAPSULE BY l MOUTH TWICE MOUTH TWICE MOUTH Clinics A DAY A DAY TWICE A DAY levothyroxi levothyroxi No levothyrox Panacea ne 50 mcg ne 50 mcg ine 50 mcg Communi tablet Take tablet Take tablet ty 1 tablet 1 tablet Take 1 Hospi ta every day every day tablet l by oral by oral every day Clin ics route. route. by oral route. acetaminoph acetaminoph No 1 Q8H acetaminop Panacea en 300 en 300 hen 300 Communi mg-codeine mg-codeine mg-codeine ty 30 mg 30 mg 30 mg Hospita tablet Take tablet Take tablet l 1 tablet 1 tablet Take 1 Clini cs every 8 every 8 tablet hours by hours by every 8 oral route oral route hours by as needed. as needed. oral route as needed. Advair Advair No Advair Panacea Diskus 100 Diskus 100 Diskus 100 Communi mcg-50 mcg-50 mcg-50 ty mcg/dose mcg/dose mcg/dose Hos nadine powder for powder for powder for l inhalation inhalation inhalation Clinics INHALE 1 INHALE 1 INHALE 1 PUFF TWICE PUFF TWICE PUFF TWICE A DAY BY A DAY BY A DAY BY INHALATION INHALATION INHALATION ROUTE ROUTE ROUTE DIRECTED. DIRECTED. DIRECTED. dicyclomine dicyclomine No 1 QID dicyclomin Panacea 20 mg 20 mg e 20 mg Communi tablet Take tablet Take tablet ty 1 tablet 4 1 tablet 4 Take 1 H ospita times a day times a day tablet 4 l by oral by oral times a Clinic s route as route as day by needed. needed. oral route as needed. EpiPen EpiPen No 1auto(s EpiPen Panacea 2-Ludwin 0.3 2-Ludwin 0.3 ) 2-Ludwin 0.3 Communi mg/0.3 mL mg/0.3 mL mg/0.3 mL ty injection, injection, injection, Hospita auto-inject auto-inject auto-injec l or Take 1 or Take 1 tor Take 1 Clinics auto by auto by auto by injection injection injection route as route as route as needed. needed. needed. gabapentin gabapentin No gabapentin Panacea 100 mg 100 mg 100 mg Communi capsule capsule capsule ty TAKE 1 TAKE 1 TAKE 1 Hospita CAPSULE BY CAPSULE BY CAPSULE BY l MOUTH TWICE MOUTH TWICE MOUTH Clinics A DAY A DAY TWICE A DAY levothyroxi levothyroxi No levothyrox Panacea ne 50 mcg ne 50 mcg ine 50 mcg Communi tablet Take tablet Take tablet ty 1 tablet 1 tablet Take 1 Hospi ta every day every day tablet l by oral by oral every day Clin ics route. route. by oral route. gabapentin gabapentin No gabapentin Panacea 100 mg 100 mg 100 mg Communi capsule capsule capsule ty Take 1 Take 1 Take 1 Hospita capsule capsule capsule l twice a day twice a day twice a Clinics by oral by oral day by route. route. oral route. Kenalog 40 Kenalog 40 No 40mg Kenalog 40 Panacea mg/mL mg/mL mg/mL Communi suspension suspension suspension ty for for for Hospita injection injection injection l Take 40 mg Take 40 mg Take 40 mg Clinics by by by injection injection injection route. route. route. acetaminoph acetaminoph No 1 Q7H acetaminop Panacea en 300 en 300 hen 300 Communi mg-codeine mg-codeine mg-codeine ty 30 mg 30 mg 30 mg Hospita tablet Take tablet Take tablet l 1 tablet 1 tablet Take 1 Clini cs every 6-8 every 6-8 tablet hours by hours by every 6-8 oral route oral route hours by as needed. as needed. oral route as needed. gabapentin gabapentin No 1capsul BID gabapentin Panacea 100 mg 100 mg e(s) 100 mg Communi capsule capsule capsule ty Take 1 Take 1 Take 1 Hospita capsule capsule capsule l twice a day twice a day twice a Clinics by oral by oral day by route. route. oral route. acetaminoph acetaminoph No 1 Q8H acetaminop Panacea en 300 en 300 hen 300 Communi [...] Name COVID-19, mRNA, COVID-19, mRNA, 2022-03-17 Completed [facility] LNP-S, PF, 30 LNP-S, PF, 30 00:00:00 Hospital Clinics mcg/0.3 mL dose mcg/0.3 mL dose (Cittadino) (Cittadino) COVID-19, mRNA, COVID-19, mRNA, 2022-03-17 Completed [facility] LNP-S, PF, 30 LNP-S, PF, 30 00:00:00 Hospital Clinics mcg/0.3 mL dose mcg/0.3 mL dose ([employer]) (Cittadino) COVID-19, mRNA, COVID-19, mRNA, 2022-03-17 Completed [facility] LNP-S, PF, 30 LNP-S, PF, 30 00:00:00 Hospital Clinics mcg/0.3 mL dose mcg/0.3 mL dose ([facility]-BioNTech) [facility] COVID-19, mRNA, COVID-19, mRNA, 2021-03-04 Completed [facility] LNP-S, PF, 100 LNP-S, PF, 100 00:00:00 Hospit al Clinics mcg/0.5 mL dose mcg/0.5 mL dose (Moderna) (Moderna) COVID-19, mRNA, COVID-19, mRNA, 2021-03-04 Completed [facility] LNP-S, PF, 100 LNP-S, PF, 100 00:00:00 Hospit al Clinics mcg/0.5 mL dose mcg/0.5 mL dose (Moderna) (Moderna) COVID-19, mRNA, COVID-19, mRNA, 2021-03-04 Completed [facility] LNP-S, PF, 100 LNP-S, PF, 100 00:00:00 Hospit al Clinics mcg/0.5 mL dose mcg/0.5 mL dose (Moderna) (Moderna) COVID-19, mRNA, COVID-19, mRNA, 2021-03-04 Completed [facility] LNP-S, PF, 100 LNP-S, PF, 100 00:00:00 Hospit al Clinics mcg/0.5 mL dose mcg/0.5 mL dose (Moderna) (Moderna) COVID-19, mRNA, COVID-19, mRNA, 2021-03-04 Completed [facility] LNP-S, PF, 100 LNP-S, PF, 100 00:00:00 Hospit al Clinics mcg/0.5 mL dose mcg/0.5 mL dose (Moderna) (Moderna) COVID-19, mRNA, COVID-19, mRNA, 2021-03-04 Completed [facility] LNP-S, PF, 100 LNP-S, PF, 100 00:00:00 Hospit al Clinics mcg/0.5 mL dose mcg/0.5 mL dose (Moderna) (Moderna) COVID-19, mRNA, COVID-19, mRNA, 2020-11-26 Completed [facility] LNP-S, PF, 100 LNP-S, PF, 100 00:00:00 Hospit mo Clinics mcg/0.5 mL dose mcg/0.5 mL dose (Moderna) (Moderna) COVID-19, mRNA, COVID-19, mRNA, 2020-11-26 Completed [facility] LNP-S, PF, 100 LNP-S, PF, 100 00:00:00 Hospit mo Clinics mcg/0.5 mL dose mcg/0.5 mL dose (Moderna) (Moderna) COVID-19, mRNA, COVID-19, mRNA, 2020-11-26 Completed [facility] LNP-S, PF, 100 LNP-S, PF, 100 00:00:00 Hospit mo Clinics mcg/0.5 mL dose mcg/0.5 mL dose (Moderna) (Moderna) COVID-19, mRNA, COVID-19, mRNA, 2020-11-26 Completed [facility] LNP-S, PF, 100 LNP-S, PF, 100 00:00:00 Hospit mo Clinics mcg/0.5 mL dose mcg/0.5 mL dose (Moderna) (Moderna) COVID-19, mRNA, COVID-19, mRNA, 2020-11-26 Completed [facility] LNP-S, PF, 100 LNP-S, PF, 100 00:00:00 Hospit mo Clinics mcg/0.5 mL dose mcg/0.5 mL dose (Moderna) (Moderna) COVID-19, mRNA, COVID-19, mRNA, 2020-11-26 Completed [facility] LNP-S, PF, 100 LNP-S, PF, 100 00:00:00 Hospit mo Clinics mcg/0.5 mL dose mcg/0.5 mL dose (Moderna) (Moderna) Vital Signs Vital Name Observation Time Observation Value Comments Source BP Diastolic 2022-07-01 00:00:00 72 mm[Hg] [facility] s Height 2022-07-01 00:00:00 64 [in_i] [facility] BMI (Body Mass 2022-07-01 00:00:00 31.2 kg/m2 [facility] s BP Systolic 2022-07-01 00:00:00 113 mm[Hg] [facility] Body Weight 2022-07-01 00:00:00 2912 [oz_av] [facility] s BP Diastolic 2022-06-29 00:00:00 86 mm[Hg] [facility] s Height 2022-06-29 00:00:00 64 [in_i] [facility] s BMI (Body Mass 2022-06-29 00:00:00 31.2 kg/m2 [facility] s BP Systolic 2022-06-29 00:00:00 132 mm[Hg] [facility] s Body Weight 2022-06-29 00:00:00 2905.6 [oz_av] [facility] s BP Diastolic 2022-06-01 00:00:00 80 mm[Hg] [facility] s Height 2022-06-01 00:00:00 64 [in_i] [facility] s BMI (Body Mass 2022-06-01 00:00:00 32.3 kg/m2 [facility] Clinic s BP Systolic 2022-06-01 00:00:00 123 mm[Hg] [facility] s Body Weight 2022-06-01 00:00:00 3008 [oz_av] [facility] s BP Diastolic 2022-05-07 00:00:00 87 mm[Hg] [facility] s Height 2022-05-07 00:00:00 64 [in_i] [facility] s BMI (Body Mass 2022-05-07 00:00:00 32.1 kg/m2 [facility] Clinic s BP Systolic 2022-05-07 00:00:00 135 mm[Hg] [facility] s Body Weight 2022-05-07 00:00:00 2988.8 [oz_av] [facility] s BP Diastolic 2022-01-20 00:00:00 73 mm[Hg] [facility] Height 2022-01-20 00:00:00 64 [in_i] [facility] s BMI (Body Mass 2022-01-20 00:00:00 31.5 kg/m2 [facility] s BP Systolic 2022-01-20 00:00:00 129 mm[Hg] [facility] Body Weight 2022-01-20 00:00:00 2934.4 [oz_av] [facility] s BP Diastolic 2021-10-30 00:00:00 91 mm[Hg] [facility] s Height 2021-10-30 00:00:00 64 [in_i] [facility] s BMI (Body Mass 2021-10-30 00:00:00 33.6 kg/m2 [facility]) [facility] s BP Systolic 2021-10-30 00:00:00 150 mm[Hg] [facility] Body Weight 2021-10-30 00:00:00 3132.8 [oz_av] [facility] s Systolic blood 2021-12-20 18:34:00 119 mm[Hg] [facility] pressure Diastolic blood 2021-12-20 18:34:00 60 mm[Hg] [facility] pressure Heart rate 2021-12-20 18:34:00 61 /min [facility] Body temperature 2021-12-20 18:34:00 37.06 Lisa [facility] Respiratory rate 2021-12-20 18:34:00 17 /min [facility] Oxygen saturation in 2021-12-20 18:34:00 96 /min [facility] Arterial blood by Pulse oximetry Body height 2021-12-20 15:46:00 165.1 cm [facility] Body weight 2021-12-20 15:46:00 83.008 kg [facility] BMI 2021-12-20 15:46:00 30.45 kg/m2 [facility] Procedures Procedure Date / Time Performing Clinician Source Performed MAMMO, screening, 2022-06-01 00:00:00 Nasrin mclain [facility] Hospital Clin ics XR FOOT 3+ VW LEFT 2022-05-08 15:55:56 Vu, [facility] XR ANKLE 3+ VW LEFT 2022-05-08 15:55:41 Vu, [facility] ABDOMEN PELVIS W 2021-12-20 18:48:55 Ray, [facility] CONTRAST URINE CULTURE 2021-12-20 16:29:00 [facility]UM 2021-12-20 16:29:[facility] S[facility] CBC WITH PLATELET AND 2021-12-20 16:29:00 Mena [facility] DIFFERENTIAL COMPREHENSIVE METABOLIC 2021-12-20 16:29[facility] 2021-12-20 16:29:00 [facility] S[facility]EN AND 2021-12-20 16:29:00 Mena [facility] MICROSCOPY, WITH REFLEX TO CULTURE ESTIMATED GFR 2021-12-20 16:29:00 [facility] US, pelvis, complete 2021-10-30 00:00:00 [facility] Gastric Bypass for 2020-12-11 00:00:00 [facility] Obesity [facility] Section [facility] Plan of Care Planned Activity Planned Date Details Comments Source Future Scheduled Test 2022-08-10 Hepatitis C [facility] 18:01:35 screening (procedure) [code = 720393253] Future Scheduled Test 2022-08-10 Screening for [facility] 18:01:35 malignant neoplasm of cervix (procedure) [code = 239556948] Future Scheduled Test 2022-08-10 BREAST CANCER [facility] 18:01:35 SCREENING [code = BREAST CANCER SCREENING] Future Scheduled Test 2022-08-10 COVID-19 VACCINE (4 [facility] 18:01:35 - Booster) [code = COVID-19 VACCINE (4 - Booster)] Future Scheduled Test 2022-08-10 INFLUENZA VACCINE [facility] 18:01:35 [code = INFLUENZA VACCINE] Future Scheduled Test 2022-08-10 Hepatitis C [facility] 18:01:35 screening (procedure) [code = 243545748] Future Scheduled Test 2022-08-10 Screening for [facility] 18:01:35 malignant neoplasm of cervix (procedure) [code = 521649853] Future Scheduled Test 2022-08-10 BREAST CANCER [facility] 18:01:35 SCREENING [code = BREAST CANCER SCREENING] Future Scheduled Test 2022-08-10 COVID-19 VACCINE ([address] [place] [address] 18:01:35 - Booster) [code = COVID-19 VACCINE (4 - Booster)] Future Scheduled Test 2022-08-10 INFLUENZA VACCINE [facility] 18:01:35 [code = INFLUENZA VACCINE] Future Scheduled Test 2022-07-03 HEPATITIS B VACCINES [facility] 10:59:24 (1 of 3 - 3-dose series) [code = HEPATITIS B VACCINES (1 of 3 - 3-dose series)] Future Scheduled Test 2022-07-03 Hepatitis C [facility] 10:59:24 screening (procedure) [code = 924508669] Future Scheduled Test 2022-07-03 Screening for [facility] 10:59:24 malignant neoplasm of cervix (procedure) [code = 612009125] Future Scheduled Test 2022-07-03 BREAST CANCER [facility] 10:59:24 SCREENING [code = BREAST CANCER SCREENING] Future Scheduled Test 2022-07-03 COVID-19 VACCINE ([address] [place] [address] 10:59:24 - Booster) [code = COVID-19 VACCINE (4 - Booster)] Future Scheduled Test 2022-07-03 INFLUENZA VACCINE [facility] 10:59:24 [code = INFLUENZA VACCINE] Diagnostic Test 2021-10-30 mononucleosis, Panacea Com munity Pending 00:00:00 heterophile Ab, Hospital [facility] nic blood [code = mononucleosis, heterophile Ab, blood] Diagnostic Test 2021-10-30 CBC w/ auto diff [facility] C ommunity Pending 00:00:00 [code = CBC w/ auto Hospital Clinics diff] Diagnostic Test 2021-10-30 [facility] [code = CMP, serum Hospital Clinics or plasma] Diagnostic Test 2021-10-30 lipids, total, serum [facility] Pending 00:00:00 [code = lipids, Hospital Cli nics total, serum] Diagnostic Test 2021-10-30 vitamin D, [facility] Commu nity Pending 00:00:00 25-hydroxy, total, Hospital Clinics serum [code = vitamin D, 25-hydroxy, total, serum] Instructions Panacea [facility] Clinic s Encounters Start End Encounter Admission Attending Care Care Encounter Source Date/Time Date/Time Type Type Clinicians Facility Department ID 2022-07-01 2022-07-01 Outpatient CHRETIEN_F [facility] [id number] [facility] 00:00:00 00:00:00 1109 [facility] 2022-07-01 2022-07-01 Outpatient CHRETIEN_F [facility] [id number] [facility] 00:00:00 00:00:00 0112 Commun i ty Hospita l Clinics 2022-07-01 2022-07-01 Kelsey [facility] [place] - Panacea [id number] Panacea 00:00:00 00:00:00 Lety [facility] Co mmuni [facility] - ty C: [address] [facility], CLINIC [address] [place] [phone] , Ph. 2022-06-29 2022-06-29 Outpatient CHRETIEN_F [facility] [id number] Panacea 00:00:00 00:00:00 1107 Commun i ty Hospita l Clinics 2022-06-29 2022-06-29 Kelsey [facility] [place] - Panacea [id number] Panacea 00:00:00 00:00:00 Lety [facility] mmuni PLATFORM BU[facility]DER[facility]-B Hospital - ty C: [address] [facility], CLINIC [address] [place] [phone] , Ph. 2022-06-01 2022-06-01 Outpatient CHRETIEN_F [facility] [id number] Panacea 00:00:00 00:00:00 1010 Commun i ty Hospita l Clinics 2022-06-01 2022-06-01 Kelsey [facility] [place] - Panacea Panacea 00:00:00 00:00:00 Lety [facility] mmuni PLATFORM BUILDER-COTA-B [facility] C: [address] [facility], CLINIC [address], [place] [address] , Ph. 2022-05-08 2022-05-08 Transcribe Jarad Velazquez 1.2.840.1 [id number] Methodi 00:00:00 00:00:[address]o [id number] 3.430.2.7 Hospit a .[id number] l .8 2022-05-08 2022-05-08 Outpatient JARAD VELAZQUEZ [facility] [id number] [place] 00:00:00 00:00:[address] 2022-05-08 2022-05-08 Outpatient JARAD VELAZQUEZ [facility] [id number] [place] 00:00:00 00:00:[address] 2022-05-08 2022-05-08 Transcribe Jarad Velazquez 1.2.840.1 [id number] Methodi 00:00:00 00:00:00 Orders Hung [id number] 3.430.2.7 Hospit a .[id number] l .8 2022-05-07 2022-05-07 Outpatient CHRETIEN_F [facility] [id number] Panacea 00:00:00 00:00:00 0915 Commun i ty Hospita l Clinics 2022-05-07 2022-05-07 Outpatient Lety, [facility] [id number] 00:00:00 00:00:00 Kelsey [id number] 2022-05-07 2022-05-07 Kelsey [facility] [place] - Panacea [id number] [facility] 00:00:00 [facility] Hospital - ty C: [address] [facility], CLINIC [address], [place] [address] , Ph. 2022-03-19 2022-03-19 Outpatient Ferguson_Ro [facility] [id number] [place] 00:00:00 00:00:00 [place] [id number] [facility] 2022 2022 Outpatient WATERS_S [facility] [id number] [facility] 00:00:00 00:00:00 0601 Commun i ty Hosp[facility] Clinics 2022-01-20 2022-01-20 Outpatient [facility]ERS[facility] [id number] [facility] 02:36:00 02:36:00 0531 Commun i ty Hospita [facility] Clinics 2022-01-20 2022-01-20 [facility] [id number] 00:00:00 00:00:00 Kelsey [id number] 2022-01-20 2022-01-20 Kelsey [facility] [place] - Panacea 31 Panacea 00:00:00 00:00:00 [facility] Hospital - ty C: [address] [facility], CLINIC [address], [place] [address] , Ph. 2021-12-30 2021-12-30 Outpatient Ferguson_Ro MEHOP MEHOP [id number] [place] 09:48:00 09:48:00 bin [id number] [facility] 2021-12-20 2021-12-20 Emergency Ramya, 1.2.840.1 [id number] Methodi 10:48:00 14:13:00 Jonah Freedman [id number] 3.430.2.7 Hospit a .3.489188 l .8 2021-12-20 2021-12-20 Emergency Ramya, Nery.2.840.1 [id number] Methodi 10:48:00 14:13:00 Jonah Freedman [id number] 3.430.2.7 Hospit a .3.357713 l .8 2021-12-16 2021-12-16 Outpatient [facility] [id number] [facility] 02:47:00 02:47:00 0426 Commun i ty Hospita Clinics 2021-10-30 2021-10-30 Outpatient WATERS_[facility] [id number] [facility] 12:58:00 12:58:00 0310 Commun i ty Hospita [facility] 2021-10-30 2021-10-30 Outpatient Francois, [facility] [id number] 00:00:00 00:00:00 Samra [id number] 2021-10-30 2021-10-30 [facility] [place] - Panacea Panacea 00:00:00 00:00:00 [facility] 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 Results Test Description Test Time Test Comments Results Result Comments Source Urine culture 2021-12-20 16:58:00 Test Item Value Reference Range Interpretation Comme nts Urine culture (test code = 9577592) SEE COMMENT [facility]. [id number] 16:58:00 Test Item Value Reference Range Interpretation Comments Urine culture (test SEE COMMENT Bacteriu mayra screen code = [id number]) negative. [facility] [id number] 16:58:00 Test Item Value Reference Range Interpretation Comments Urine culture (test SEE COMMENT Bacteriu mayra screen code = [id number]) negative. [facility] [Presence] in Blood by [id number] 11:30:00 Test Item Value Reference Range Interpretation Comments Giles (test code = Giles) positive [facility]
[2022-10-15] MEDS ORDERED: FENTANYL CITR 100 MCG/2 ML ONE (08:43)
[2022-10-15] MEDS ORDERED: NA CHLORIDE 0.9% 1,000 ML ONE (08:44)
[2022-10-15] MEDS ORDERED: FAMOTIDINE 20 MG/2 ML VIAL IV ONE (08:44)
[2022-10-15] MEDS ORDERED: ONDANSETRON 4 MG/2 ML VIAL ONE (08:48)
[2022-10-15 08:56] LABS: Absolute Lymphocytes (CBC) 2.9 K/uL (0.7-4.9); Hematocrit 40.4 % (36.0-45.0); Lymphocytes % 37.9 % (15.3-44.8); MCV 90.1 fL (80-100); MPV 8.9 fL (7.6-11.3); RBC Red Blood Cell Count 4.48 M/uL (3.86-4.86)
[2022-10-15 09:37] LABS: Albumin 3.2 g/dL (3.4-5.0); Bilirubin Total 0.4 mg/dL (0.2-1.0); Potassium 3.5 mmol/L (3.5-5.1); Protein, Total 6.7 g/dL (6.4-8.2)
--- NOTE | 2022-10-15 10:17 | RAD REPORT ---
EXAM DESCRIPTION: CT - Abdomen Pelvis W Contrast - 10/15/2022 10:01 am CLINICAL HISTORY: Abdominal pain. COMPARISON: 2021 TECHNIQUE: Computed axial tomography of the abdomen and pelvis was obtained. 100 cc Isovue-300 is ad ministered intravenously. Oral contrast was given. All CT scans are performed using dose optimization technique as appropriate and may include automated exposure control or mA/KV adjustment according to patient size. FINDINGS: Cholecystectomy. Small periumbilical hernia contains fat The liver, spleen, pancreas, adrenals and kidneys appear unremarkable. The appendix is normal caliber. There is no evidence of diverticulitis 2.9 centimeter left ovarian cyst without significant free fluid. IUD in place. Fallopian tube occlusion coils in place Small hiatal hernia Short segment narrowing of the distal transverse colon IMPRESSION: 2.9 centimeter left ovarian cyst without significant free fluid. Short segment narrowing distal transverse colon probably secondary to spasm. However as a subtle mass can have this appearance followup is recommended
[2022-10-15 10:33] LABS: Urine Blood Negative (Negative); Urine Glucose Negative (Negative); Urine Protein Negative (Negative); Urine pH 7.5 (5.0-7.0)
--- NOTE | 2022-10-15 10:36 | ER ---
Nurse's Notes [facility] Name: Helen Villagran Age: 42 yrs Sex: Female : 1980 Arrival Date: 10/15/2022 Time: 08:20 Bed 20 Private MD: Diagnosis: Epigastric pain Presentation: 10/15 08:32 Chief complaint: Patient states: left lower abd pain since yesterday, worse upon waking iw this morning, feels like stabbing pain intermittent. Coronavirus screen: At this time, the client does not indicate any symptoms associated with coronavirus-19. Ebola Screen: Patient negative for fever greater than or equal to 101.5 degrees Fahrenheit, and additional compatible Ebola Virus Disease symptoms Patient denies exposure to infectious person. Patient denies travel to an Ebola-affected area in the 21 days before illness onset. No symptoms or risks identified at this time. Initial Sepsis Screen: Does the patient meet any 2 criteria? No. Patient's initial sepsis screen is negative. Does the patient have a suspected source of infection? No. Patient's initial sepsis screen is negative. Risk Assessment: Do you want to hurt yourself or someone else? Patient reports no desire to harm self or others. Onset of symptoms was October 14, 2022. 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 - Social history:: Smoking status: Patient denies any tobacco usage or history of. Screenin:55 [facility] ED Fall Risk Assessment (Adult) History of falling in the last 3 months, ap3 including since admission No falls in past 3 months (0 pts). Abuse screen: Denies threats or abuse. Nutritional screening: No deficits noted. Tuberculosis screening: No symptoms or risk factors identified. Assessment: 08:54 General: Appears in no apparent distress. Behavior is calm, cooperative. Pain: ap3 Complains of pain in left breast Pain began 1 day ago. Neuro: Level of Consciousness is awake, alert, obeys commands, Oriented to person, place, time, situation, Gait is steady, Speech is normal. Cardiovascular: Patient's skin is warm and dry. Respiratory: Airway is patent Respiratory effort is even, unlabored, Respiratory pattern is regular, symmetrical. 10:24 Reassessment: Patient and/or family updated on plan of care and expected duration. Pain ap3 level reassessed. Patient is alert, oriented x 3, equal unlabored respirations, skin warm/dry/pink. Vital Signs: 08:32 BP 129 / 83; Pulse 89; Resp 16; Temp 97.7; Pulse Ox 100% on R/A; Weight 80.74 kg; iw Height 5 ft. 5 in. (165.10 cm); Pain 6/10; 10:26 BP 132 / 70; Pulse 51; Pulse Ox 100% on R/A; ap3 08:32 Body Mass Index 29.62 (80.74 kg, 165.10 cm) iw ED Course: 08:20 Patient arrived in ED. as 08:21 Masood Degroot PA is PHCP. m 08:21 Spenser Hardy DO is Attending Physician. jmm 08:33 Ethel Avelar, YAN is Primary Nurse. ap3 08:33 Triage completed. iw 08:36 Arm band placed on. iw 08:53 Inserted saline lock: 20 gauge in right antecubital area, using aseptic technique. ap3 Blood collected. 08:55 Patient has correct armband on for positive identification. Bed in low position. Call ap3 light in reach. Side rails up X 1. Adult w/ patient. monitoring manager on. Pulse ox on. NIBP on. 10:35 Gurvinder Dawson MD is Referral Physician. [facility] 10:55 No provider procedures requiring assistance completed. IV discontinued, intact, ap3 bleeding controlled, No redness/swelling at site. Pressure dressing applied. Administered Medications: 08:56 Drug: NS 0.9% 1000 ml Route: IV; Rate: 1 bolus; Site: right antecubital; ap3 08:56 Drug: Pepcid (famotidine) 20 mg Route: IVP; Site: right antecubital; ap3 10:22 Follow up: Response: No adverse reaction ap3 08:56 Drug: Zofran (Ondansetron) 4 mg Route: IVP; Site: right antecubital; ap3 10:22 Follow up: Response: No adverse reaction ap3 09:00 Not Given (Patient Refused): fentaNYL (PF) 50 mcg IVP once ap3 Medication: 08:55 VIS not applicable for this client. ap3 Outcome: 10:35 Discharge ordered by . zachary 10:55 Discharged to home ambulatory, with family. ap3 10:55 Condition: good 10:55 Discharge instructions given to patient, Instructed on discharge instructions, follow up and referral plans. Demonstrated understanding of instructions, follow-up care. 10:55 Patient left the ED. ap3 Signatures: Masood Degroot PA PA jmm Martinez, Amelia as Williams, Irene, RN RN iw Prokisch, Amanda, RN RN ap3
--- NOTE | 2022-10-15 10:36 | EDPHYS ---
Physician Documentation [facility] Name: Helen Villagran Age: 42 yrs Sex: Female : 1980 Arrival Date: 10/15/2022 Time: 08:20 Bed 20 Private MD: ED Physician Spenser Hardy HPI: 10/15 08:24 This 42 yrs old Black Female presents to ER via Ambulatory with complaints of rib pain. jmm 08:24 The patient presents with abdominal pain. Onset: The symptoms/episode began/occurred jmm gradually, 1 day(s) ago. The symptoms do not radiate. Associated signs and symptoms: Pertinent negatives: shortness of breath. The symptoms are described as intermittent, sharp, stabbing. Modifying factors: The symptoms are alleviated by nothing, the symptoms are aggravated by nothing. The patient has not experienced similar symptoms in the past. This is a 42 year old female with a history of PUD that presents ot the ED with complaints of LUQ abdominal pain beginning last night, intensifying this morning. Denies vomiting, diarrhea, sob, fever. Patient does have a surgical hx of cholecystectomy and gas bypass. . 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 - Social history:: Smoking status: Patient denies any tobacco usage or history of. ROS: 08:24 Constitutional: Negative for fever, chills, and weight loss, Cardiovascular: Negative jmm for chest pain, palpitations, and edema, Respiratory: Negative for shortness of breath, cough, wheezing, and pleuritic chest pain. 08:24 Abdomen/GI: Positive for abdominal pain. 08:24 All other systems are negative. Exam: 08:24 Constitutional: This is a well developed, well nourished patient who is awake, alert, jmm and in no acute distress. Head/Face: atraumatic. Eyes: EOMI, no conjunctival erythema appreciated ENT: Moist Mucus Membranes Neck: Trachea midline, Supple Chest/axilla: Normal chest wall appearance and motion. Cardiovascular: Regular rate and rhythm. No edema appreciated Respiratory: Normal respirations, no respiratory distress appreciated 08:24 Back: Normal ROM Skin: General appearance color normal MS/ Extremity: Moves all extremities, no obvious deformities appreciated, no edema noted to the lower extremities Neuro: Awake and alert Psych: Behavior is normal, Mood is normal, Patient is cooperative and pleasant 08:24 Abdomen/GI: Inspection: abdomen appears normal, Bowel sounds: normal, Palpation: soft, mild abdominal tenderness, in the left upper quadrant. Vital Signs: 08:32 BP 129 / 83; Pulse 89; Resp 16; Temp 97.7; Pulse Ox 100% on R/A; Weight 80.74 kg; iw Height 5 ft. 5 in. (165.10 cm); Pain 6/10; 10:26 BP 132 / 70; Pulse 51; Pulse Ox 100% on R/A; ap3 08:32 Body Mass Index 29.62 (80.74 kg, 165.10 cm) iw MDM: 08:24 Patient medically screened. [facility] 10:27 Data reviewed: vital signs, nurses notes. [facility] 10:30 Differential diagnosis: acute coronary syndrome, bowel obstruction, Mesenteric ischemia jmm or infarction, non-specific abd pain, pancreatitis, Peptic Ulcer Disease, Perf. Duodenal Ulcer, Perf. Gastric Ulcer, Peritonitis. Management of patient was discussed with the following: Dr. Hardy. I considered the following discharge prescriptions or medication management in the emergency department Medications were administered in the Emergency Department. See MAR. Discussion of test interpretation with radiology: I had a discussion with radiology regarding a test interpretation. Test considered but Not performed: Other Details CT Chest, Negative D-dimer. Care significantly affected by the following chronic conditions: Gastric sleeve. Counseling: I had a detailed discussion with the patient and/or guardian regarding: the historical points, exam findings, and any diagnostic results supporting the discharge/admit diagnosis, lab results, radiology results, the need for outpatient follow up. ED course: Pain relieved in the ED. Advised to follow up with GI for further evaluation. Otherwise give strict return precautions. Patient understood and agrees with the plan of care. . 10/15 08:29 Order name: CBC with Diff [facility] 10/15 08:29 Order name: CMP [facility] 10/15 08:29 Order name: Lipase [facility] 10/15 08:57 Order name: CBC with Automated Diff; Complete Time: 08:59 EDMS 10/15 08:58 Order name: D-Dimer [facility] 10/15 08:58 Order name: Troponin High Sensitivity [facility] 10/15 09:27 Order name: D-Dimer; Complete Time: 09:32 EDMS 10/15 09:33 Order name: CT Abd/Pelvis - PO and IV Contrast [facility] 10/15 09:35 Order name: Troponin High Sensitivity; Complete Time: 09:42 EDMS 10/15 09:37 Order name: Comprehensive Metabolic Panel; Complete Time: 09:42 EDMS 10/15 09:37 Order name: Lipase; Complete Time: 09:42 EDMS 10/15 10:33 Order name: Urine Dipstick-Ancillary; Complete Time: 10:37 EDSC 10/15 08:29 Order name: IV Saline Lock; Complete Time: 08:53 [facility] 10/15 08:29 Order name: Labs collected and sent; Complete Time: 08:53 [facility] 10/15 08:29 Order name: Urine Dipstick-Ancillary (obtain specimen); Complete Time: 10:32 [facility] 10/15 08:29 Order name: Urine Test (obtain specimen); Complete Time: 10:32 [facility] 10/15 10:17 Order name: CT; Complete Time: 10:24 EDMS Administered Medications: 08:56 Drug: NS 0.9% 1000 ml Route: IV; Rate: 1 bolus; Site: right antecubital; ap3 08:56 Drug: Pepcid (famotidine) 20 mg Route: IVP; Site: right antecubital; ap3 10:22 Follow up: Response: No adverse reaction ap3 08:56 Drug: Zofran (Ondansetron) 4 mg Route: IVP; Site: right antecubital; ap3 10:22 Follow up: Response: No adverse reaction ap3 09:00 Not Given (Patient Refused): fentaNYL (PF) 50 mcg IVP once ap3 Disposition: 08:59 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 HPI: 42-year-old female ms3 with past medical history of peptic ulcer disease presents for left upper quadrant abdominal pain that is intermittent. Patient states the pain is sharp. Patient currently is without pain. My personal exam of patient reveals: On exam patient is alert and oriented x4, no apparent distress, nontoxic-appearing, speaking full sentences. Heart rate and rhythm are regular without murmurs rubs or gallops. Lungs are clear to auscultation bilaterally. Abdomen is nontender to palpation, bowel sounds are present. Skin is dry and without rashes I agree with assessment and care plan and confirm the diagnosis (es) above. Disposition Summary: 10/15/22 10:35 Discharge Ordered Location: Home [facility] Condition: Stable [facility] Diagnosis - Epigastric pain [facility] Followup: jm - With: Gurvinder Dawson MD - When: 2 - 3 days - Reason: Recheck today's complaints, Continuance of care, Re-evaluation by your physician Discharge Instructions: - Discharge Summary Sheet jmm - Abdominal Pain, Adult jmm - Clear Liquid Diet, Adult jm Forms: - Medication Reconciliation Form [facility] - Thank You Letter jmm - Antibiotic Education jmm - Prescription Opioid Use [facility] Signatures: Dispatcher [employer] EDMS Masood Degroot PA PA Paris Denney, Ethel Farmer RN, RN RN ap3 Spenser Hardy, DO ms3
[2022-10-15 11:18] VITALS: TEMP 97.7; O2SAT 100
[2022-10-15 11:19] VITALS: BP 132/70
[2022-10-17] MEDS ORDERED: NA CHLORIDE 0.9% 250 ML ONE (23:30)
[2022-10-17] MEDS ORDERED: CEFTRIAXONE 1000 MG/VIAL ONE (23:30)
[2022-10-17] MEDS ORDERED: AZITHROMYCIN 500 MG INJ IVPB ONE (23:30)
== END 2022-10-15 10:55 | disposition home or self-care (01) ==
LOC: ER 08:20
DX: R10.13 Epigastric pain (principal); R10.12 Left upper quadrant pain; Z88.5 Allergy status to narcotic agent; Z88.8 Allergy status to other drugs, medicaments and biological substances
CPT/HCPCS: 85025; 36415; 85379; 81003; 84484; 83690; 80053; 74177; 96375; 96374; 99284; Q9967; J3010; J7030; J2405

== ENCOUNTER 2022-11-01 12:45 | Emergency (ER) | payer BC ==
--- OUTSIDE RECORDS SUMMARY | 2022-11-01 13:07 | XMS REPORT | Continuity of Care Document ---
:1980 Author Organization [facility] t Address [address] [place] [id number] Care Team Providers Name Role Phone Asked, No Pcp Primary Care Physician Unavailable RUFUS Attending Clinician Unavailable Jarad Velazquez DPM Attending Clinician Kelsey Davidson Attending Clinician [phone] Roberth Attending Clinician Unavailable SALLIE Attending Clinician Unavailable Jonah Bui MD Attending Clinician Samra Francois Attending Clinician [phone] RUFUS Admitting Clinician Unavailable Roberth Admitting Clinician Unavailable SALLIE Admitting Clinician Unavailable Payers Payer Name Policy Type Policy Number Effective Date Expiration Date Jenny rodriguez [place] AMANUEL [id number] 2022 ADVANTAGE (O) 00:00:00 Problems Condition Condition Condition Status Onset Resolution Last Treating Co mments Source Name Details Category Date Date Treatment Clinician Date Essential Essential Problem Active [facility] renzo hypertensi Hypertensi 3-08 [facility]: [facility] Hypothyroi Hypothyroi Problem Active S weeny dism dism 306 [facility]i 00:00: ty [facility] Vitamin D Vitamin D Problem Active [facility] ren[facility] deficiency Deficiency 3-06 [facility] 00:00: ty [facility] Headache Headache Problem Active [facility] 306 [facility] 00[facility]00: ty [facility] Migraine Migraine Problem Active 2021-08 [place] 1-09 Communi 00:00: ty 00 [facility] Pain in Pain in Problem Active 2021-08 [place] throat Throat 1-09 Communi 00:00: ty 00 [facility] Allergic Allergic Problem Active 2021-08 [place] rhinitis Rhinitis 0-10 Commun i 00:00: ty 00 [facility] Pain in Pain in Problem Active [place] right foot Right Foot 9-17 Co mmuni 00:00: ty 00 [facility] Ganglion Ganglion Problem Active [facility] [facility] cyst Cyst 9-15 Communi 00:00: ty 00 [facility] Pain in Pain in Problem Active [place] left foot Left Foot 9-15 Comm uni 00:00: ty 00 [facility] Allergies, Adverse Reactions, Alerts Allergy Allergy Status Severity Reaction(s) Onset Inactive Treating Comm ents Source Name Type Date Date Clinician Aspirin- Propensi Active Rash Method i Sod ty to 12-20 st Bicarb-C adverse 00:00: Hospita itric reaction 00 l Acid s to drug Dicyclom Allergy Active Severe Anaphylaxis [facility] ine to Communi substanc ty e Hospita l Clinics LIZETTE-DAMIEN Allergy Active Anaphylaxis [facility] TZER to Communi PLUS substanc ty COLD/COU e Hospita GH l Clinics Tramadol Allergy Active Other [place] to Communi substanc ty e Hospita l Clinics Social History Social Habit Start Date Stop Date Quantity Comments Source Alcohol intake 2021-12-20 2021-12-20 Lifetime Muslim 00:00:00 00:00:00 non-drinker Hospital (finding) Tobacco use and 2021-12-20 2021-12-20 Smokeless tobacco [facility] 00:[facility]:00 non-user Hospital Sex Assigned At [birth year] Muslim 00:00:00 00:00:00 Hospital Smoking Status Start Date Stop Date Source Never smoked tobacco [facility] Medications Ordered Filled Start Stop Current Ordering Indication Dosage Frequency Signature Comments Components Source Medication Medication Date Date Medication? Clinician (SIG) Name Name Kenalog 40 Kenalog 40 2021-08 No Kenalog 40 [place] mg/mL mg/mL 0-10 mg/mL Communi suspension suspension 16:35: suspension ty for for 00 for Hospita injectionTa injectionTa injectionT l ke 40 mg by ke 40 mg by leonides 40 mg Clinics injection injection by route. route. injection route. Kenalog 40 Kenalog 40 2021-08 Kenalog 40 [place] mg/mL mg/mL 0-10 mg/mL Communi suspension suspension 16:35: suspension ty for for 00 for Hospita injectionTa injectionTa injectionT l ke 40 mg by ke 40 mg by leonides 40 mg Clinics injection injection by route. route. injection route. ondansetron 2021- No 4mg Q8H Take 1 Met hodi ODT 4-30 05-08 tablet (4 st (ZOFRAN-ODT 00:00: 04:59 mg total) Hospita ) 4 MG 00 :00 by mouth l disintegrat every 8 ing tablet (eight) hours as needed for nausea or vomiting for up to 7 days. ondansetron 2021-2021- No 4mg Q8H Take 1 Met hodi ODT 4-30 05-08 tablet (4 st (ZOFRAN-ODT 00:00: 04:59 mg total) Hospita ) 4 MG 00 :00 by mouth l disintegrat every 8 ing tablet (eight) hours as needed for nausea or vomiting for up to 7 days. ondansetron 2021-2021- No 4mg Q8H Take 1 Met hodi [...] to 7 days. Advair Advair No Advair [place] Diskus 100 Diskus 100 Diskus 100 Communi mcg-50 mcg-50 mcg-50 ty mcg/dose mcg/dose mcg/dose Hos nadine powder for powder for powder for l inhalation inhalation inhalation Clinics INHALE 1 INHALE 1 INHALE 1 PUFF TWICE PUFF TWICE PUFF TWICE A DAY BY A DAY BY A DAY BY INHALATION INHALATION INHALATION ROUTE ROUTE ROUTE DIRECTED. DIRECTED. DIRECTED. dicyclomine dicyclomine No 1 QID dicyclomin [place] 20 mg 20 mg e 20 mg Communi tablet Take tablet Take tablet ty 1 tablet 4 1 tablet 4 Take 1 H ospita times a day times a day tablet 4 l by oral by oral times a Clinic s route as route as day by needed. needed. oral route as needed. gabapentin gabapentin No gabapentin [place] 100 mg 100 mg 100 mg Communi capsule capsule capsule ty TAKE 1 TAKE 1 TAKE 1 Hospita CAPSULE BY CAPSULE BY CAPSULE BY l MOUTH TWICE MOUTH TWICE MOUTH Clinics A DAY A DAY TWICE A DAY levothyroxi levothyroxi No levothyrox [place] ne 50 mcg ne 50 mcg ine 50 mcg Communi tablet Take tablet Take tablet ty 1 tablet 1 tablet Take 1 Hospi ta every day every day tablet l by oral by oral every day Clin ics route. route. by oral route. acetaminoph acetaminoph No 1 Q8H acetaminop [place] en 300 en 300 hen 300 Communi mg-codeine mg-codeine mg-codeine ty 30 mg 30 mg 30 mg Hospita tablet Take tablet Take tablet l 1 tablet 1 tablet Take 1 Clini cs every 8 every 8 tablet hours by hours by every 8 oral route oral route hours by as needed. as needed. oral route as needed. Advair Advair No Advair [place] Diskus 100 Diskus 100 Diskus 100 Communi mcg-50 mcg-50 mcg-50 ty mcg/dose mcg/dose mcg/dose Hos nadine powder for powder for powder for l inhalation inhalation inhalation Clinics INHALE 1 INHALE 1 INHALE 1 PUFF TWICE PUFF TWICE PUFF TWICE A DAY BY A DAY BY A DAY BY INHALATION INHALATION INHALATION ROUTE ROUTE ROUTE DIRECTED. DIRECTED. DIRECTED. dicyclomine dicyclomine No 1 QID dicyclomin [place] 20 mg 20 mg e 20 mg Communi tablet Take tablet Take tablet ty 1 tablet 4 1 tablet 4 Take 1 H ospita times a day times a day tablet 4 l by oral by oral times a Clinic s route as route as day by needed. needed. oral route as needed. EpiPen EpiPen No 1auto(s EpiPen [place] 2-Ludwin 0.3 2-Ludwin 0.3 ) 2-Ludwin 0.3 Communi mg/0.3 mL mg/0.3 mL mg/0.3 mL ty injection, injection, injection, Hospita auto-inject auto-inject auto-injec l or Take 1 or Take 1 tor Take 1 Clinics auto by auto by auto by injection injection injection route as route as route as needed. needed. needed. gabapentin gabapentin No gabapentin [place] 100 mg 100 mg 100 mg Communi capsule capsule capsule ty TAKE 1 TAKE 1 TAKE 1 Hospita CAPSULE BY CAPSULE BY CAPSULE BY l MOUTH TWICE MOUTH TWICE MOUTH Clinics A DAY A DAY TWICE A DAY levothyroxi levothyroxi No levothyrox [place] ne 50 mcg ne 50 mcg ine 50 mcg Communi tablet Take tablet Take tablet ty 1 tablet 1 tablet Take 1 Hospi ta every day every day tablet l by oral by oral every day Clin ics route. route. by oral route. Advair Advair No Advair [place] Diskus 100 Diskus 100 Diskus 100 Communi mcg-50 mcg-50 mcg-50 ty mcg/dose mcg/dose mcg/dose Hos nadine powder for powder for powder for l inhalation inhalation inhalation Clinics INHALE 1 INHALE 1 INHALE 1 PUFF TWICE PUFF TWICE PUFF TWICE A DAY BY A DAY BY A DAY BY INHALATION INHALATION INHALATION ROUTE ROUTE ROUTE DIRECTED. DIRECTED. DIRECTED. EpiPen EpiPen No 1auto(s EpiPen [place] 2-Ludwin 0.3 2-Ludwin 0.3 ) 2-[place]ud[place] 0.3 Communi mg/0.3 mL mg/0.3 mL mg/0.3 mL ty injection, injection, injection, Hospita auto-inject auto-inject auto-injec l or Take 1 or Take 1 tor Take 1 Clinics auto by auto by auto by injection injection injection route as route as route as needed. needed. needed. famotidine famotidine No famotidine [place] 20 mg 20 mg 20 mg Communi tablet TAKE tablet TAKE tablet ty 1 TABLET BY 1 TABLET BY TAKE 1 Hospita MOUTH MOUTH TABLET BY l EVERYDAY AT EVERYDAY AT MOUTH Clinics BEDTIME BEDTIME EVERYDAY AT BEDTIME gabapentin gabapentin No gabapentin [place] 100 mg 100 mg 100 mg Communi capsule capsule capsule ty TAKE 1 TAKE 1 TAKE 1 Hospita CAPSULE BY CAPSULE BY CAPSULE BY l MOUTH TWICE MOUTH TWICE MOUTH Clinics A DAY A DAY TWICE A DIRECTED DIRECTED DAY DIRECTED levothyroxi levothyroxi No levothyrox [place] ne 50 mcg ne 50 mcg ine 50 mcg Communi tablet TAKE tablet TAKE tablet ty 1 TABLET BY 1 TABLET BY TAKE 1 Hospita MOUTH EVERY MOUTH EVERY TABLET BY l DAY DAY MOUTH Clinics EVERY DAY omeprazole omeprazole No omeprazole [place] 20 mg 20 mg 20 mg Communi capsule,del capsule,del capsule,de ty ayed ayed layed Hospita release release release l TAKE 1 TAKE 1 TAKE 1 Clinics CAPSULE BY CAPSULE BY CAPSULE BY MOUTH EVERY MOUTH EVERY MOUTH DAY IN THE DAY IN THE EVERY DAY MORNING MORNING IN THE MORNING Advair Advair No Advair [place] Diskus 100 Diskus 100 Diskus 100 Communi mcg-50 mcg-50 mcg-50 ty mcg/dose mcg/dose mcg/dose Hos nadine powder for powder for powder for l inhalation inhalation inhalation Clinics INHALE 1 INHALE 1 INHALE 1 PUFF TWICE PUFF TWICE PUFF TWICE A DAY BY A DAY BY A DAY BY INHALATION INHALATION INHALATION ROUTE ROUTE ROUTE DIRECTED. DIRECTED. DIRECTED. amlodipine amlodipine No 1 Q1D amlodipine [place] 2.5 mg 2.5 mg 2.5 mg Communi tablet Take tablet Take tablet ty 1 tablet 1 tablet Take 1 Hospi ta every day every day tablet l by oral by oral every day Clin ics route. route. by oral route. EpiPen EpiPen No 1auto(s EpiPen [place] 2-Ludwin 0.3 2-Ludwin 0.3 ) 2-Ludwin 0.3 Communi mg/0.3 mL mg/0.3 mL mg/0.3 mL ty injection, injection, injection, Hospita auto-inject auto-inject auto-injec l or Take 1 or Take 1 tor Take 1 Clinics auto by auto by auto by injection injection injection route as route as route as needed. needed. needed. famotidine famotidine No famotidine [place] 20 mg 20 mg 20 mg Communi tablet TAKE tablet TAKE tablet ty 1 TABLET BY 1 TABLET BY TAKE 1 Hospita MOUTH MOUTH TABLET BY l EVERYDAY AT EVERYDAY AT MOUTH Clinics BEDTIME BEDTIME EVERYDAY AT BEDTIME gabapentin gabapentin No gabapentin [place] 100 mg 100 mg 100 mg Communi capsule capsule capsule ty TAKE 1 TAKE 1 TAKE 1 Hospita CAPSULE BY CAPSULE BY CAPSULE BY l MOUTH TWICE MOUTH TWICE MOUTH Clinics A DAY A DAY TWICE A DIRECTED DIRECTED DAY DIRECTED Kenalog 40 Kenalog 40 No 40mg Kenalog 40 [place] mg/mL mg/mL mg/mL Communi suspension suspension suspension ty for for for Hospita injection injection injection l Take 40 mg Take 40 mg Take 40 mg Clinics by by by injection injection injection route. route. route. levothyroxi levothyroxi No levothyrox [place] ne 50 mcg ne 50 mcg ine 50 mcg Communi tablet TAKE tablet TAKE tablet ty 1 TABLET BY 1 TABLET BY TAKE 1 Hospita MOUTH EVERY MOUTH EVERY TABLET BY l DAY DAY MOUTH Clinics EVERY DAY omeprazole omeprazole No omeprazole [place] 20 mg 20 mg 20 mg Communi capsule,del capsule,del capsule,de ty ayed ayed layed Hospita release release release l TAKE 1 TAKE 1 TAKE 1 Clinics CAPSULE BY CAPSULE BY CAPSULE BY MOUTH EVERY MOUTH EVERY MOUTH DAY IN THE DAY IN THE EVERY DAY MORNING MORNING IN THE MORNING gabapentin gabapentin No gabapentin [place] 100 mg 100 mg 100 mg Communi capsule capsule capsule ty Take 1 Take 1 Take 1 Hospita capsule capsule capsule l twice a day twice a day twice a Clinics by oral by oral day by route. route. oral route. Kenalog 40 Kenalog 40 No 40mg Kenalog 40 [place] mg/mL mg/mL mg/mL Communi suspension suspension suspension ty for for for Hospita injection injection injection l Take 40 mg Take 40 mg Take 40 mg Clinics by by by injection injection injection route. route. route. acetaminoph acetaminoph No 1 Q7H acetaminop [place] en 300 en 300 hen 300 Communi mg-codeine mg-codeine mg-codeine ty 30 mg 30 mg 30 mg Hospita tablet Take tablet Take tablet l 1 tablet 1 tablet Take 1 Clini cs every 6-8 every 6-8 tablet hours by hours by every 6-8 oral route oral route hours by as needed. as needed. oral route as needed. gabapentin gabapentin No 1capsul BID gabapentin [place] 100 mg 100 mg e(s) 100 mg Communi capsule capsule capsule ty Take 1 Take 1 Take 1 Hospita capsule capsule capsule l twice a day twice a day twice a Clinics by oral by oral day by route. route. oral route. acetaminoph acetaminoph No 1 Q8H acetaminop [place] en 300 en 300 hen 300 Communi [...] Name COVID-19, mRNA, COVID-19, mRNA, 2022-03-17 Completed [facility] LNP-S, PF, 30 LNP-S, PF, 30 00:00:00 Hospital Clinics mcg/0.3 mL dose mcg/0.3 mL dose (Supramed-BioNTech) (Supramed-BioNTech) COVID-19, mRNA, COVID-19, mRNA, 2022-03-17 Completed [facility] LNP-S, PF, 30 LNP-S, PF, 30 00:00:00 Hospital Clinics mcg/0.3 mL dose mcg/0.3 mL dose (Pfizer-BioNTech) (Supramed-BioNTech) COVID-19, mRNA, COVID-19, mRNA, 2022-03-17 Completed [facility] LNP-S, PF, 30 LNP-S, PF, 30 00:00:00 Hospital Clinics mcg/0.3 mL dose mcg/0.3 mL dose (Pfizer-BioNTech) (Pfizer-BioNTech) COVID-19, mRNA, COVID-19, mRNA, 2022-03-17 Completed [facility] LNP-S, PF, 30 LNP-S, PF, 30 00:00:00 Hospital Clinics mcg/0.3 mL dose mcg/0.3 mL dose (Pfizer-BioNTech) (Pfizer-BioNTech) COVID-19, mRNA, COVID-19, mRNA, 2022-03-17 Completed [facility] LNP-S, PF, 30 LNP-S, PF, 30 00:00:00 Hospital Clinics mcg/0.3 mL dose mcg/0.3 mL dose (Pfizer-BioNTech) (Supramed-BioNTech) COVID-19, mRNA, COVID-19, mRNA, 2021-03-04 Completed [facility] LNP-S, PF, 100 LNP-S, PF, 100 00:00:00 Hospit al Clinics mcg/0.5 mL dose mcg/0.5 mL dose (Moderna) (Moderna) COVID-19, mRNA, COVID-19, mRNA, 2021-03-04 Completed [facility] LNP-S, PF, 100 LNP-S, PF, 100 00:00:00 Hospit al Clinics mcg/0.5 mL dose mcg/0.5 mL dose (Moderna) (Moderna) COVID-19, mRNA, COVID-19, mRNA, 2021-03-04 Completed [facility] LNP-S, PF, 100 LNP-S, PF, 100 00:00:00 Hospit al Clinics mcg/0.5 mL dose mcg/0.5 mL dose (Moderna) (Moderna) COVID-19, mRNA, COVID-19, mRNA, 2021-03-04 Completed [facility] LNP-S, PF, 100 LNP-S, PF, 100 00:00:00 Hospit al Clinics mcg/0.5 mL dose mcg/0.5 mL dose (Moderna) (Moderna) COVID-19, mRNA, COVID-19, mRNA, 2021-03-04 Completed [facility] LNP-S, PF, 100 LNP-S, PF, 100 00:00:00 Hospit al Clinics mcg/0.5 mL dose mcg/0.5 mL dose (Moderna) (Moderna) COVID-19, mRNA, COVID-19, mRNA, 2021-03-04 Completed [facility] LNP-S, PF, 100 LNP-S, PF, 100 00:00:00 Hospit al Clinics mcg/0.5 mL dose mcg/0.5 mL dose (Moderna) (Moderna) COVID-19, mRNA, COVID-19, mRNA, 2021-03-04 Completed [facility] LNP-S, PF, 100 LNP-S, PF, 100 00:00:00 Hospit al Clinics mcg/0.5 mL dose mcg/0.5 mL dose (Moderna) (Moderna) COVID-19, mRNA, COVID-19, mRNA, 2021-03-04 Completed [facility] LNP-S, PF, 100 LNP-S, PF, 100 00:00:00 Hospit pr Clinics mcg/0.5 mL dose mcg/0.5 mL dose (Moderna) (Moderna) COVID-19, mRNA, COVID-19, mRNA, 2020-11-26 Completed [facility] LNP-S, PF, 100 LNP-S, PF, 100 00:00:00 Hospit pr Clinics mcg/0.5 mL dose mcg/0.5 mL dose (Moderna) (Moderna) COVID-19, mRNA, COVID-19, mRNA, 2020-11-26 Completed [facility] LNP-S, PF, 100 LNP-S, PF, 100 00:00:00 Hospit pr Clinics mcg/0.5 mL dose mcg/0.5 mL dose (Moderna) (Moderna) COVID-19, mRNA, COVID-19, mRNA, 2020-11-26 Completed [facility] LNP-S, PF, 100 LNP-S, PF, 100 00:00:00 Hospit pr Clinics mcg/0.5 mL dose mcg/0.5 mL dose (Moderna) (Moderna) COVID-19, mRNA, COVID-19, mRNA, 2020-11-26 Completed [facility] LNP-S, PF, 100 LNP-S, PF, 100 00:00:00 Hospit pr Clinics mcg/0.5 mL dose mcg/0.5 mL dose (Moderna) (Moderna) COVID-19, mRNA, COVID-19, mRNA, 2020-11-26 Completed [facility] LNP-S, PF, 100 LNP-S, PF, 100 00:00:00 Hospit pr Clinics mcg/0.5 mL dose mcg/0.5 mL dose (Moderna) (Moderna) COVID-19, mRNA, COVID-19, mRNA, 2020-11-26 Completed [facility] LNP-S, PF, 100 LNP-S, PF, 100 00:00:00 Hospit pr Clinics mcg/0.5 mL dose mcg/0.5 mL dose (Moderna) (Moderna) COVID-19, mRNA, COVID-19, mRNA, 2020-11-26 Completed [facility] LNP-S, PF, 100 LNP-S, PF, 100 00:00:00 Hospit al Clinics mcg/0.5 mL dose mcg/0.5 mL dose (Moderna) (Moderna) COVID-19, mRNA, COVID-19, mRNA, 2020-11-26 Completed [facility] LNP-S, PF, 100 LNP-S, PF, 100 00:00:00 Hospit al Clinics mcg/0.5 mL dose mcg/0.5 mL dose (Moderna) (Moderna) Vital Signs Vital Name Observation Time Observation Value Comments Source BP Diastolic 2022-10-28 00:00:00 85 mm[Hg] [facility] Height 2022-10-28 00:00:00 64 [in_i] [facility] BP Systolic 2022-10-28 00:00:00 146 mm[Hg] [facility] s BP Diastolic 2022-10-26 00:00:00 88 mm[Hg] [facility] Height 2022-10-26 00:00:00 64 [in_i] [facility] BMI (Body Mass 2022-10-26 00:00:00 31.8 kg/m2 [facility] s BP Systolic 2022-10-26 00:00:00 139 mm[Hg] [facility] Body Weight 2022-10-26 00:00:00 2966.4 [oz_av] [facility] s BP Diastolic 2022-07-01 00:00:00 72 mm[Hg] [facility] Height 2022-07-01 00:00:00 64 [in_i] [facility] BMI (Body Mass 2022-07-01 00:00:00 31.2 kg/m2 [facility]) [facility] s BP Systolic 2022-07-01 00:00:00 113 mm[Hg] [facility] Body Weight 2022-07-01 00:00:00 2912 [oz_av] [facility] BP Diastolic 2022-06-29 00:00:00 86 mm[Hg] [facility] Height 2022-06-29 00:00:00 64 [in_i] [facility] BMI (Body Mass 2022-06-29 00:00:00 31.2 kg/m2 [facility] Clinic s BP Systolic 2022-06-29 00:00:00 132 mm[Hg] [facility] Body Weight 2022-06-29 00:00:00 2905.6 [oz_av] [facility] s BP Diastolic 2022-06-01 00:00:00 80 mm[Hg] [facility] Height 2022-06-01 00:00:00 64 [in_i] [facility] BMI (Body Mass 2022-06-01 00:00:00 32.3 kg/m2 [facility]) [facility] s BP Systolic 2022-06-01 00:00:00 123 mm[Hg] [facility] Body Weight 2022-06-01 00:00:00 3008 [oz_av] [facility] BP Diastolic 2022-05-07 00:00:00 87 mm[Hg] [facility] Height 2022-05-07 00:00:00 64 [in_i] [facility] BMI (Body Mass 2022-05-07 00:00:00 32.1 kg/m2 [facility] Clinic s BP Systolic 2022-05-07 00:00:00 135 mm[Hg] [facility] Body Weight 2022-05-07 00:00:00 2988.8 [oz_av] [facility] s BP Diastolic 2022-01-20 00:00:00 73 mm[Hg] [facility] Height 2022-01-20 00:00:00 64 [in_i] [facility] BMI (Body Mass 2022-01-20 00:00:00 31.5 kg/m2 [facility] s BP Systolic 2022-01-20 00:00:00 129 mm[Hg] [facility] Body Weight 2022-01-20 00:00:00 2934.4 [oz_av] [facility] s BP Diastolic 2021-10-30 00:00:00 91 mm[Hg] [facility] Height 2021-10-30 00:00:00 64 [in_i] [facility] BMI (Body Mass 2021-10-30 00:00:00 33.6 kg/m2 [facility] s BP Systolic 2021-10-30 00:00:00 150 mm[Hg] [facility] Body Weight 2021-10-30 00:00:00 3132.8 [oz_av] [facility] s Systolic blood 2021-12-20 18:34:00 119 mm[Hg] [facility] pressure Diastolic blood 2021-12-20 18:34:00 60 mm[Hg] [facility] pressure Heart rate 2021-12-20 18:34:00 61 /min [facility] Body temperature 2021-12-20 18:34:00 37.06 Lisa [facility] Respiratory rate 2021-12-20 18:34:00 17 /min [facility] Oxygen saturation in 2021-12-20 18:34:00 96 /min [facility] Arterial blood by Pulse oximetry Body height 2021-12-20 15:46:00 165.1 cm [facility] Body weight 2021-12-20 15:46:00 83.008 kg [facility] BMI 2021-12-20 15:46:00 30.45 kg/m2 [facility] Procedures Procedure Date / Time Performing Clinician Source Performed MAMMO, screening, digital, 2022-06-01 00:00:00 [facility] XR FOOT 3+ VW LEFT 2022-05-08 15:55:56 Yovani [facility] XR ANKLE 3+ VW LEFT 2022-05-08 15:55:41 Yovani [facility] CT ABDOMEN PELVIS W 2021-12-20 18:48:55 Ray, [facility] CONTRAST URINE CULTURE 2021-12-20 16:29:00 Ray, [facility] HCG QUALITATIVE, SERUM 2021-12-20 16:29:00 Ray, [facility] SCREEN CBC WITH PLATELET AND 2021-12-20 16:29:00 Ray, [facility] DIFFERENTIAL COMPREHENSIVE METABOLIC 2021-12-20 16:29:00 Ray, [facility] PANEL LIPASE LEVEL 2021-12-20 16:29:00 Ray, [facility] URINALYSIS SCREEN AND 2021-12-20 16:29:00 [place], [facility] MICROSCOPY, WITH REFLEX TO CULTURE ESTIMATED GFR 2021-12-20 16:29:00 [place], [facility] US, pelvis, complete 2021-10-30 00:00:00 [facility] Gastric Bypass for Obesity 2020-12-11 00:00:00 S [facility] Cholecystectomy [facility] Section [facility] Plan of Care Planned Activity Planned Date Details Comments Source Diagnostic Test 2022-10-26 TSH + free T4, [place] Com munity Pending 00:00:00 serum [code = TSH + Hospital Clinics free T4, serum] Diagnostic Test 2022-10-26 vitamin D, [place] Com[facility] nity Pending 00:00:00 25-hydroxy, total, Hospital Clinics serum [code = vitamin D, 25-hydroxy, total, serum] Diagnostic Test 2022-10-26 CMP, serum or [place] Comm unity Pending 00:00:00 plasma [code = CMP, Hospital Clinics serum or plasma] Future Scheduled Test 2022-08-10 Hepatitis C [facility] 18:01:35 screening (procedure) [code = [id number]] Future Scheduled Test 2022-08-10 Screening for [facility] 18:01:35 malignant neoplasm of cervix (procedure) [code = [id number]] Future Scheduled Test 2022-08-10 BREAST CANCER [facility] 18:01:35 SCREENING [code = BREAST CANCER SCREENING] Future Scheduled Test 2022-08-10 COVID-19 VACCINE ([address] [place] [address] 18:01:35 - Booster) [code = COVID-19 VACCINE (4 - Booster)] Future Scheduled Test 2022-08-10 INFLUENZA VACCINE [facility] 18:01:35 [code = INFLUENZA VACCINE] Future Scheduled Test 2022-08-10 Hepatitis C [facility] 18:01:35 screening (procedure) [code = [id number]] Future Scheduled Test 2022-08-10 Screening for [facility] 18:01:35 malignant neoplasm of cervix (procedure) [code = [id number]] Future Scheduled Test 2022-08-10 BREAST CANCER [facility] 18:01:35 SCREENING [code = BREAST CANCER SCREENING] Future Scheduled Test 2022-08-10 COVID-19 VACCINE ([address] [place] [address] 18:01:35 - Booster) [code = COVID-19 VACCINE (4 - Booster)] Future Scheduled Test 2022-08-10 INFLUENZA VACCINE [facility] 18:01:35 [code = INFLUENZA VACCINE] Future Scheduled Test 2022-08-10 Hepatitis C [facility] 18:01:35 screening (procedure) [code = 338161937] Future Scheduled Test 2022-08-10 Screening for [facility] 18:01:35 malignant neoplasm of cervix (procedure) [code = 393529645] Future Scheduled Test 2022-08-10 BREAST CANCER [facility] 18:01:35 SCREENING [code = BREAST CANCER SCREENING] Future Scheduled Test 2022-08-10 COVID-19 VACCINE ([address] [place] [address] 18:01:35 - Booster) [code = COVID-19 VACCINE (4 - Booster)] Future Scheduled Test 2022-08-10 INFLUENZA VACCINE [facility] 18:01:35 [code = INFLUENZA VACCINE] Future Scheduled Test 2022-07-03 HEPATITIS B [facility] 10:59:24 VACCINES (1 of 3 - 3-dose series) [code = HEPATITIS B VACCINES (1 of 3 - 3-dose series)] Future Scheduled Test 2022-07-03 Hepatitis C [facility] 10:59:24 screening (procedure) [code = 008987891] Future Scheduled Test 2022-07-03 Screening for [facility] 10:59:24 malignant neoplasm of cervix (procedure) [code = [id number]] Future Scheduled Test 2022-07-03 BREAST CANCER [facility] 10:59:24 SCREENING [code = BREAST CANCER SCREENING] Future Scheduled Test 2022-07-03 COVID-19 VACCINE (4 [facility] 10:59:24 - Booster) [code = COVID-19 VACCINE (4 - Booster)] Future Scheduled Test 2022-07-[address] 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 2022-10-26 2022-10-26 Outpatient CHRETIEN_F [facility] [id number] [place] 00:00:00 00:00:00 [id number] Commun i ty [facility] 2022-10-26 2022-10-26 Kelsey [facility] [place] 00:00:00 00:00:00 Lety [facility] [place], [place]ACCOUNTING TEACHER-B Hospital - ty C: [address] [facility], [address], [place] [address] , Ph. 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 2022-06-01 2022-06-01 Outpatient CHRETIEN_F [facility] [id number] [place] 00:00:00 00:00:00 1010 Commun i ty Hospita Clinics 2022-06-01 2022-06-01 Kelsey [facility] [place] 00:00:00 00:00:00 [facility]y [facility] Hospital - ty C: [address] [facility], [address], [place] [address] , Ph. 2022-05-08 2022-05-08 Transcribe Jarad Velazquez 1.2.840.1 [id number] [facility] 00:00:00 00:00:00 Orders Hung [address].1.[address] 3.430.2.7 Hospit a .3.839451 l .8 2022-05-08 2022-05-08 Outpatient JARAD VELAZQUEZ [facility] [id number] [place] 00:00:00 00:00:[address] 2022-05-08 2022-05-08 Outpatient JARAD VELAZQUEZ [facility] [id number] [place] 00:00:00 00:00:[address] 2022-05-08 2022-05-08 Transcribe Jarad Velazquez 1.2.840.1 [id number] [facility] 00:00:00 00:00:00 Orders Hung [address]38.1.[address] 3.430.2.7 Hospit a .3.589518 l .8 2022-05-07 2022-05-07 Outpatient CHRETIEN_F [facility] [id number] [place] 00:00:00 00:00:00 0915 Commun i ty Hospita l Clinics 2022-05-07 2022-05-07 Outpatient Lety [facility] [id number] 00:00:00 00:00:00 Kelsey [id number] 2022-05-07 2022-05-07 Kelsey [facility] [place] [id number] [place] 00:00:00 00:00:00 [facility]y [facility] [place] mmuni [employer] 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 2022-03-19 2022-03-19 Outpatient Iban_Jazzy [facility] [id number] [place] 00:00:00 00:00:[id number] [facility] 2022 2022 Outpatient WATERS_S [facility] [id number] [place] 00:00:00 00:00:00 0601 Commun i ty [facility]ospita [facility] Clinics 2022-01-20 2022-01-20 Outpatient WATERS_S [facility] [id number] [place] 02:36:00 02:36:00 0531 Commun i ty Hospita l Clinics 2022-01-20 2022-01-20 Outpatient Chretien, [facility] [id number] 00:00:00 00:00:00 Kelsey [id number] 2022-01-20 2022-01-20 Kelsey [facility] [place] 00:00:00 00:00:00 Lety [facility] [place] mmuni [employer] 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 2021-12-30 2021-12-30 Outpatient Ferguson_Jazzy [facility] [id number] [place] 09:48:00 09:48:00 bin [facility] Program 2021-12-20 2021-12-20 [facility], 1.2.840.1 [id number] [facility] 10:48:00 14:13:00 Rajem[address] 3.430.2.7 Hospit a .3.870074 l .8 2021-12-20 2021-12-20 [facility], 1.2.840.1 [id number] [facility] 10:48:00 14:13:00 Raj[address] 3.430.2.7 Hospit a .3.914841 l .8 2021-12-16 2021-12-16 Outpatient WATERS_S [facility] 2021 [place] 02:47:00 02:47:00 0426 Commun i ty Hospita l Clinics 2021-10-30 2021-10-30 Outpatient WATERS_S [facility] [id number] [place] 12:58:00 12:58:00 0310 Commun i ty Hospita l Clinics 2021-10-30 2021-10-30 Outpatient Francois, [facility] [id number] 00:00:00 00:00:00 Samra [id number] 2021-10-30 2021-10-30 [facility] [place] 10 [place] 00:00:00 00:00:00 Alma Francois 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 Results Test Description Test Time Test Comments Results Result Comments Source Urine culture 2021-12-20 16:58:00 Test Item Value Reference Range Interpretation Comme nts Urine culture (test code = [id number]) SEE COMMENT Bacteriuria screen negative. [facility] [id number] 16:58:00 Test Item Value Reference Range Interpretation Comments Urine culture (test SEE COMMENT Bacteriu mayra screen code = [id number]) negative. [facility] [id number] 16:58:00 Test Item Value Reference Range Interpretation Comments Urine culture (test SEE COMMENT Bacteriu mayra screen code = [id number]) negative. [facility] [id number] 16:58:00 Test Item Value Reference Range Interpretation Comments Urine culture (test SEE COMMENT Bacteriu mayra screen code = [id number]) negative. [facility]Presence] in Blood by [id number] 11:30:00 Test Item Value Reference Range Interpretation Comments Rush (test code = Rush) positive [facility]
[2022-11-01] MEDS ORDERED: ASPIRIN 81 MG CHEWABLE TABLET ONE (13:10)
[2022-11-01] MEDS ORDERED: DIAZEPAM 5 MG TABLET ONE (13:11)
[2022-11-01] MEDS ORDERED: NA CHLORIDE 0.9% 1,000 ML ONE (13:23)
--- NOTE | 2022-11-01 14:06 | RAD REPORT ---
EXAM DESCRIPTION: RAD - Chest Single View - 11/01/2022 1:39 pm CLINICAL HISTORY: CHEST PAIN Chest pain. COMPARISON: Chest Single View dated 11/17/2021hest Single View dated 11/17/2021 FINDINGS: Portable technique limits examination quality. The lungs are grossly clear. The heart is normal in size. No displaced fractures. IMPRESSION: No acute intrathoracic process suspected.
[2022-11-01 14:10] LABS: Absolute Lymphocytes (CBC) 1.9 K/uL (0.7-4.9); Lymphocytes % 25.1 % (15.3-44.8); MCV 89.9 fL (80-100); MPV 9.2 fL (7.6-11.3); RBC Red Blood Cell Count 4.56 M/uL (3.86-4.86)
[2022-11-01 14:11] LABS: Protime INR 1.12
[2022-11-01 14:30] LABS: Albumin 3.6 g/dL (3.4-5.0); Bilirubin Direct 0.1 mg/dL (0-0.2); Bilirubin Total 0.4 mg/dL (0.2-1.0); Magnesium 2.1 mg/dL (1.6-2.4); Potassium 3.5 mmol/L (3.5-5.1); Protein, Total 7.4 g/dL (6.4-8.2)
[2022-11-01 14:51] LABS: Urine Blood Negative (Negative); Urine Glucose Negative (Negative); Urine Protein Negative (Negative); Urine pH 8.5 (5.0-7.0)
--- NOTE | 2022-11-01 15:29 | RAD REPORT ---
EXAM DESCRIPTION: CT - Angio Aorta For Dissection - 11/01/2022 3:06 pm CLINICAL HISTORY: Chest pain radiating to the back. vice like pressure COMPARISON: No comparisons TECHNIQUE: CT angiography of the aorta was performed with MIPs. All CT scans are performed using dose optimization technique as appropriate and may include automated exposure control or mA/KV adjustment according to patient size. FINDINGS: A left aortic arch is present with normal branching pattern of the great vessels.No acute aortic finding is seen such as aneurysm, penetrating ulcer or dissection. The celiac axis, SMA, VINICIO and renal arteries are patent. No evidence of pulmonary embolism. The lungs are clear. Small hiatal hernia. The liver demonstrates no focal mass or biliary dilatation.The spleen, pancreas, adrenal glands and k idneys are within normal limits for arterial phase imaging. No bowel obstruction, free fluid or abscess.Small fat containing umbilical hernia. Normal appendix.No pathologic enlarged lymphadenopathy identified.IUD is in place. No fracture or worrisome bone lesion seen. IMPRESSION: No acute aortic finding is demonstrated.
[2022-11-01] MEDS ORDERED: KETOROLAC 30 MG/ML INJ ONE (16:36)
[2022-11-01] MEDS ORDERED: dexAMETHasone 10 MG/ML VIAL ONE (17:54)
[2022-11-01 21:08] VITALS: O2SAT 100
[2022-11-01 21:10] VITALS: TEMP 99
[2022-11-01 21:12] VITALS: BP 125/84
--- NOTE | 2022-11-02 13:04 | EKG ---
Test Date: 2022-11-01 Test Time: 12:25:07 Beamer Hand: PATEL MEASUREMENT RESULTS: Intervals: Rate: 55 UT: 136 QRSD: 90 QT: 424 QTc: 405 [place]: P: 29 UT: 136 QRS: 49 T: 46 INTERPRETIVE STATEMENTS: Sinus bradycardia Otherwise normal ECG Compared to ECG 11/17/2021 16:15:14 No significant changes Electronically Signed On 11-02-22 13:02:25 CDT by Javed Harris
--- NOTE | 2022-11-13 17:04 | ER ---
Nurse's Notes [facility] Name: Helen Villagran Age: 42 yrs Sex: Female : 1980 Arrival Date: 11/01/2022 Time: 12:46 Bed 12 Private MD: Diagnosis: Headache;Essential (primary) hypertension Presentation: 11/01 12:55 Chief complaint: Patient states: patient took migraine medication this AM, and then kr3 [facility] and now the headache returned, took half of Tylenol with codeine and it has not helped. the patient states "she has had a headache for 14 days. Coronavirus screen: Vaccine status: Patient reports receiving the 2nd dose of the covid vaccine. Ebola Screen: Patient denies travel to an Ebola-affected area in the 21 days before illness onset. Initial Sepsis Screen: Does the patient meet any 2 criteria? No. Patient's initial sepsis screen is negative. Does the patient have a suspected source of infection? No. Patient's initial sepsis screen is negative. Risk Assessment: Do you want to hurt yourself or someone else? Patient reports no desire to harm self or others. Onset of symptoms was November 01, 2022. 12:55 Method Of Arrival: Wheelchair kr3 12:55 Acuity: DARIAN 3 kr3 Triage Assessment: 12:59 Headache History: The patient has had previous headaches and this one is different than kr3 previous episodes. General: Appears in no apparent distress. uncomfortable, Behavior is cooperative, appropriate for age, crying. Pain: Complains of pain in front of head. EENT: No signs and/or symptoms were reported regarding the EENT system. Neuro: Level of Consciousness is awake, alert, obeys commands, Oriented to person, place, time, situation. Cardiovascular: Patient's skin is warm and dry. Respiratory: Airway is patent Respiratory effort is even, unlabored, Respiratory pattern is regular, symmetrical. GI: No signs and/or symptoms were reported involving the gastrointestinal system. : No signs and/or symptoms were reported regarding the genitourinary system. Derm: No signs and/or symptoms reported regarding the dermatologic system. Musculoskeletal: No signs and/or symptoms reported regarding the musculoskeletal system. Historical: - Allergies: 12:50 Jackie-[place] Plus Cold/Cough (Anaphylaxis); kr3 12:50 bentyl PO; kr3 12:50 tramadol; "mean person"; kr3 - Home Meds: 12:50 Omeprazole Oral [Active]; levothyroxine 25 mcg cap 1 cap once daily [Active]; kr3 gabapentin Oral [Active]; amlodipine 2.5 mg tablet 1 tab once [Active]; tylenol 3 with codiene [Active]; - PMHx: 12:54 gastric sleeve; kr3 - PSHx: 12:54 Cholecystectomy; kr3 - Immunization history:: Adult Immunizations not up to date. - Social history:: Smoking status: Patient denies any tobacco usage or history of. Screenin:03 [facility] ED Fall Risk Assessment (Adult) History of falling in the last 3 months, kc6 including since admission No falls in past 3 months (0 pts) Confusion or Disorientation No (0 pts) Intoxicated or Sedated No (0 pts) Impaired Gait No (0 pts) Mobility Assist Device Used No (0 pt) Altered Elimination No (0 pt) Score/Fall Risk Level 0 - 2 = Low Risk Oriented to surroundings, Maintained a safe environment, Educated pt \\T\\ family on fall prevention, incl call for assistance when getting out of bed, Assessed \\T\\ reinforced patient's understanding of fall precautions, Hourly rounding (assess needs \\T\\ fall precautionary measures) done. Abuse screen: Denies threats or abuse. Denies injuries from another. Nutritional screening: No deficits noted. Tuberculosis screening: No symptoms or risk factors identified. Assessment: 13:15 General: Appears in no apparent distress. uncomfortable, Behavior is calm, cooperative, kc6 appropriate for age. Pain: Complains of pain in headache Pain does not radiate. Pain currently is 8 out of 10 on a pain scale. Quality of pain is described as pressure, Pain began 3 hours ago. Is continuous, Alleviated by nothing. Also complains of no other associated symptoms. 14:15 Reassessment: Patient appears in no apparent distress at this time. No changes from kc6 previously documented assessment. Patient and/or family updated on plan of care and expected duration. Pain level reassessed. Patient is alert, oriented x 3, equal unlabored respirations, skin warm/dry/pink. 16:35 Reassessment: No changes from previously documented assessment. Patient and/or family mb9 updated on plan of care and expected duration. Pain level reassessed. Patient is alert, oriented x 3, equal unlabored respirations, skin warm/dry/pink. Patient states feeling better. Patient states symptoms have improved. 18:00 Reassessment: No changes from previously documented assessment. Patient and/or family mb9 updated on plan of care and expected duration. Pain level reassessed. Patient is alert, oriented x 3, equal unlabored respirations, skin warm/dry/pink. Patient states feeling better. Patient states symptoms have improved. Vital Signs: 12:55 BP 148 / 84; Pulse 59; Resp 18; Temp 99; Pulse Ox 100% ; Weight 81.65 kg; Height 5 ft. kr3 5 in. ; Pain 4/10; 16:35 BP 128 / 87; Pulse 61; Resp 16; Pulse Ox 100% ; mb9 18:00 BP 125 / 84; Pulse 68; Resp 18; Pulse Ox 100% ; mb9 12:55 Body Mass Index 29.95 (81.65 kg, 165.1 cm) kr3 12:55 Pain Scale: Adult kr3 ED Course: 12:46 Patient arrived in ED. am2 12:58 Samra Francois FNP-C is PHCP. snw 12:58 Kiran Nelson MD is Attending Physician. snw 12:59 Triage completed. kr3 13:00 Arm band placed on left wrist. kr3 13:03 Yasmine Hernandez, RN is Primary Nurse. kc6 13:03 Patient has correct armband on for positive identification. Bed in low position. Call kc6 light in reach. Side rails up X2. 13:34 Inserted saline lock: 20 gauge in right antecubital area, using aseptic technique. kc6 Blood collected. 13:41 XRAY Chest (1 view) In Process Unspecified. EDMS 15:07 CT Aorta for Dissection In Process Unspecified. EDMS 18:00 No provider procedures requiring assistance completed. IV discontinued, intact, mb9 bleeding controlled, No redness/swelling at site. Pressure dressing applied. Administered Medications: 13:13 Drug: Aspirin PO Chewable Tablet 324 mg Route: PO; kc6 14:43 Follow up: Response: No adverse reaction kc6 13:13 Drug: Diazepam PO 10 mg Route: PO; kc6 14:43 Follow up: Response: No adverse reaction; RASS: Alert and Calm (0) kc6 13:34 Drug: NS 0.9% IV 1000 ml Route: IV; Rate: 1 bolus; Site: right antecubital; kc6 16:35 Drug: Ketorolac IVP 30 mg Route: IVP; Site: right antecubital; mb9 17:48 Follow up: Response: No adverse reaction mb9 17:53 Drug: Decadron - Dexamethasone IVP 10 mg Route: IVP; Site: right antecubital; mb9 17:53 Follow up: Response: No adverse reaction mb9 Outcome: 17:23 Discharge ordered by MD. grossman 18:00 Discharged to home ambulatory. mb9 18:00 Condition: stable 18:00 Discharge instructions given to patient, Instructed on discharge instructions, follow up and referral plans. Demonstrated understanding of instructions, follow-up care, medications, Prescriptions given X 4. 18:01 Patient left the ED. mb9 Signatures: Dispatcher [employer] EDMS Samra Francois, TOBIN-C SENIOR SALES ADMINISTRATOR-Csnw Ethel Liu Kelley RN RN [email or web address] Yasmine Hernandez RN RN [email or web address] Dali Pires RN RN mb9 Corrections: (The following items were deleted from the chart) 12:55 12:50 PMHx: Ulcers; kr3 kr3 12:55 12:50 PSHx: section; kr3 kr3 12:55 12:50 PSHx: gastric sleeve sx; kr3 kr3 12:55 12:50 PSHx: Cholecystectomy; kr3 kr3
--- NOTE | 2022-11-13 17:05 | EDPHYS ---
Physician Documentation [facility] Name: Helen Villagran Age: 42 yrs Sex: Female : 1980 Arrival Date: 11/01/2022 Time: 12:46 Bed 12 Private MD: ED Physician Kiran Nelson HPI: 11/01 15:32 This 42 yrs old Black Female presents to ER via Wheelchair with complaints of snw ingestion, High Blood Pressure, Headache, Arm Pain - left, Back Pain, Abdominal Pain. 15:32 Onset: acutely. The pain radiates to back. Associated signs and symptoms: Pertinent snw positives: nausea. The chest pain is described as squeezing. Duration: The patient or guardian reports a single episode. Severity of pain: At its worst the pain was moderate severe. The patient has not experienced similar symptoms in the past. The patient has been recently seen by a physician: the patient's primary care provider, Dr. Kelsey Davidson, [facility] with different complaint(s), and apparently was diagnosed with HTN, started on Amlodipine. Historical: - Allergies: 12:50 Jackie-Baldwin Plus Cold/Cough (Anaphylaxis); kr3 12:50 bentyl PO; kr3 12:50 tramadol; "mean person"; kr3 - Home Meds: 12:50 Omeprazole Oral [Active]; levothyroxine 25 mcg cap 1 cap once daily [Active]; kr3 gabapentin Oral [Active]; amlodipine 2.5 mg tablet 1 tab once [Active]; tylenol 3 with codiene [Active]; - PMHx: 12:54 gastric sleeve; kr3 - PSHx: 12:54 Cholecystectomy; kr3 - Immunization history:: Adult Immunizations not up to date. - Social history:: Smoking status: Patient denies any tobacco usage or history of. ROS: 13:35 Eyes: Negative for injury, pain, redness, and discharge, ENT: Negative for injury, snw pain, and discharge, Neck: Negative for injury, pain, and swelling. 13:35 Back: Negative for injury and pain, : Negative for injury, bleeding, discharge, and swelling, MS/Extremity: Negative for injury and deformity, Skin: Negative for injury, rash, and discoloration, Neuro: Negative for headache, weakness, numbness, tingling, and seizure, Psych: Negative for depression, anxiety, suicide ideation, homicidal ideation, and hallucinations. 13:35 Constitutional: Positive for Pt with HERNANDEZ x 14 days. Started amlodipine for SBP 180s last Wednesday. Pt states HERNANDEZ is unrelieved. Pt took Ubrelvy this am and then went to [employer]. Pt states she felt a squeezing to entire torso like she is in a vice.. 13:35 Cardiovascular: Positive for chest pain. 13:35 Respiratory: Positive for shortness of breath. 13:35 Abdomen/GI: Positive for abdominal pain. Exam: 12:27 Head/Face: Normocephalic, atraumatic. Eyes: Pupils equal round and reactive to light, snw extra-ocular motions intact. Lids and lashes normal. Conjunctiva and sclera are non-icteric and not injected. Cornea within normal limits. Periorbital areas with no swelling, redness, or edema. ENT: Nares patent. No nasal discharge, no septal abnormalities noted. Tympanic membranes are normal and external auditory canals are clear. Oropharynx with no redness, swelling, or masses, exudates, or evidence of obstruction, uvula midline. Mucous membranes moist. Neck: Trachea midline, no thyromegaly or masses palpated, and no cervical lymphadenopathy. Supple, full range of motion without nuchal rigidity, or vertebral point tenderness. No Meningismus. Chest/axilla: Normal chest wall appearance and motion. Nontender with no deformity. No lesions are appreciated. Cardiovascular: bradycardic rate and rhythm with a normal S1 and S2. No gallops, murmurs, or rubs. Normal PMI, no JVD. No pulse deficits. Respiratory: Lungs have equal breath sounds bilaterally, clear to auscultation and percussion. No rales, rhonchi or wheezes noted. No increased work of breathing, no retractions or nasal flaring. 12:27 Back: No spinal tenderness. No costovertebral tenderness. Full range of motion. Skin: Warm, dry with normal turgor. Normal color with no rashes, no lesions, and no evidence of cellulitis. MS/ Extremity: Pulses equal, no cyanosis. Neurovascular intact. Full, normal range of motion. Neuro: Awake and alert, GCS 15, oriented to person, place, time, and situation. Cranial nerves II-XII grossly intact. Motor strength 5/5 in all extremities. Sensory grossly intact. Cerebellar exam normal. Normal gait. 12:27 Constitutional: The patient appears alert, awake, anxious, uncomfortable. 12:27 Abdomen/GI: Inspection: abdomen appears normal, Bowel sounds: diminished, Palpation: mild abdominal tenderness, in all quadrants. 12:27 Psych: Behavior/mood is pleasant, cooperative, anxious, Affect is calm, Oriented to person, place, time. Vital Signs: 12:55 BP 148 / 84; Pulse 59; Resp 18; Temp 99; Pulse Ox 100% ; Weight 81.65 kg; Height 5 ft. kr3 5 in. ; Pain 4/10; 16:35 BP 128 / 87; Pulse 61; Resp 16; Pulse Ox 100% ; mb9 18:00 BP 125 / 84; Pulse 68; Resp 18; Pulse Ox 100% ; mb9 12:55 Body Mass Index 29.95 (81.65 kg, 165.1 cm) kr3 12:55 Pain Scale: Adult kr3 MDM: 13:20 Patient medically screened. snw 15:33 Differential diagnosis: abnormal EKG, acute myocardial infarction, anxiety, coronary snw artery disease AAA. migraine, hypertensive urgency. HEART Score: History: Slightly Suspicious (0), ECG: Normal (0), Age: < or = 45 years (0), Risk Factors: 1 or 2 risk factors (1), [Hypertension] Troponin: < or = 1 x Normal Limit (0), Total Score = 1. The patient was given aspirin in the Emergency Department. Data reviewed: vital signs, nurses notes, lab test result(s), EKG, radiologic studies. Counseling: I had a detailed discussion with the patient and/or guardian regarding: the historical points, exam findings, and any diagnostic results supporting the discharge/admit diagnosis, lab results, radiology results, the need for outpatient follow up, to return to the emergency department if symptoms worsen or persist or if there are any questions or concerns that arise at home. Special discussion: Based on the patient's history, exam, and Dx evaluation, there is no indication for emergent intervention or inpatient Tx. It is understood by the patient/guardian that if the Sx's persist or worsen they need to return immediately for re-evaluation. Based on the patient's Hx, exam, and Dx evaluation, there is no indication for emergent surgery or inpatient Tx. It is understood by the patient/guardian that if the Sx's persist or worsen they need to return immediately for re-evaluation. I have referred the patient to see his PCP for further evaluation of high blood pressure. Based on the history and exam findings, there is no indication for further emergent testing or inpatient evaluation. I discussed with the patient/guardian the need to see the primary care provider for further evaluation of the symptoms. 11/01 13:13 Order name: Basic Metabolic Panel; Complete Time: 14:32 snw 11/01 13:13 Order name: CBC with Diff; Complete Time: 14:18 snw 11/01 13:13 Order name: Hepatic Function; Complete Time: 14:32 snw 11/01 13:13 Order name: Magnesium; Complete Time: 14:32 snw 11/01 13:13 Order name: NT PRO-BNP; Complete Time: 14:32 snw 11/01 13:13 Order name: Protime (+inr); Complete Time: 14:11 snw 11/01 13:13 Order name: Troponin HS; Complete Time: 14:32 snw 11/01 13:13 Order name: CPK; Complete Time: 14:32 snw 11/01 14:51 Order name: Urine Dipstick-Ancillary; Complete Time: 14:54 EDMS 11/01 14:56 Order name: Urine --Ancillary (enter results); Complete Time: 15:11 kj1 11/01 13:13 Order name: XRAY Chest (1 view); Complete Time: 14:11 snw 11/01 13:39 Order name: CT Aorta for Dissection; Complete Time: 15:31 snw 11/01 13:13 Order name: EKG; Complete Time: 13:14 snw 11/01 13:13 Order name: Cardiac monitoring; Complete Time: 13:34 snw 11/01 13:13 Order name: EKG - Nurse/Tech; Complete Time: 13:34 snw 11/01 13:13 Order name: IV Saline Lock; Complete Time: 13:34 snw 11/01 13:13 Order name: Labs collected and sent; Complete Time: 13:34 snw 11/01 13:13 Order name: O2 Per Protocol; Complete Time: 13:16 snw 11/01 13:13 Order name: O2 Sat Monitoring; Complete Time: 13:16 snw 11/01 14:38 Order name: Urine Dipstick-Ancillary (obtain specimen); Complete Time: 14:50 kj1 11/01 14:38 Order name: Urine Test (obtain specimen); Complete Time: 14:50 kj1 EC:27 Rate is 55 beats/min. Rhythm is regular. QRS [place] is Normal. ID interval is normal. QRS snw interval is normal. QT interval is normal. No Q waves. Clinical impression: Sinus bradycardia. Administered Medications: 13:13 Drug: Aspirin PO Chewable Tablet 324 mg Route: PO; kc6 14:43 Follow up: Response: No adverse reaction kc6 13:13 Drug: Diazepam PO 10 mg Route: PO; kc6 14:43 Follow up: Response: No adverse reaction; RASS: Alert and Calm (0) 6 13:34 Drug: NS 0.9% IV 1000 ml Route: IV; Rate: 1 bolus; Site: right antecubital; kc6 16:35 Drug: Ketorolac IVP 30 mg Route: IVP; Site: right antecubital; mb9 17:48 Follow up: Response: No adverse reaction mb9 17:53 Drug: Decadron - Dexamethasone IVP 10 mg Route: IVP; Site: right antecubital; mb9 17:53 Follow up: Response: No adverse reaction mb9 Disposition: 19:06 Co-signature as Attending Physician, Kiran Nelson MD I reviewed the patient's care rt provided by the Advanced Practice Provider and agree with the diagnosis and treatment plan. Disposition Summary: 11/01/22 17:23 Discharge Ordered Location: Home snw Condition: Stable snw Diagnosis - Headache snw - Essential (primary) hypertension snw Followup: snw - With: Emergency Department - When: As needed - Reason: Worsening of condition Followup: snw - With: Private Physician - When: 2 - 3 days - Reason: Recheck today's complaints, Continuance of care, Re-evaluation by your physician Discharge Instructions: - Discharge Summary Sheet snw - General Headache Without Cause snw - Hypertension, Adult snw - How to Take Your Blood Pressure, [id number] snw - DASH Eating Plan snw - Rehydration, Adult snw Forms: - Medication Reconciliation Form snw - Thank You Letter snw - Antibiotic Education snw - Prescription Opioid Use snw Prescriptions: - Prednisone 20 mg Oral Tablet - take 1 tablet by ORAL route once daily for 5 days; 3 tablet; Refills: 0, snw Product Selection Permitted - Zyrtec 10 mg Oral Tablet - take 1 tablet by ORAL route once daily As needed; 20 tablet; Refills: 0, snw Product Selection Permitted - orphenadrine citrate 100 mg Oral Tablet Sustained Release - take 1 tablet by ORAL route 2 times per day As needed; 20 tablet; Refills: 0, snw Product Selection Permitted - promethazine 25 mg Oral Tablet - take 1 tablet by ORAL route every 6 hours As needed; 20 tablet; Refills: 0, snw Product Selection Permitted Signatures: Dispatcher [employer] EDMS Samra Francois, BEHAVIORAL HEALTH PROFESSIONAL-C BEHAVIORAL HEALTH PROFESSIONAL-Csnw Martha Bowman kj1 Yulisa Meier RN RN kr3 Yasmine Hernandez RN RN kc6 Dali Pires RN RN mb9 Kiran Nelson MD MD rt Corrections: (The following items were deleted from the chart) 12:55 12:50 PMHx: Ulcers; kr3 kr3 12:55 12:50 PSHx: section; kr3 kr3 12:55 12:50 PSHx: gastric sleeve sx; kr3 kr3 12:55 12:50 PSHx: Cholecystectomy; kr3 kr3
== END 2022-11-01 18:01 | disposition home or self-care (01) ==
LOC: ER 12:45
DX: R51.9 Headache, unspecified (principal); I10 Essential (primary) hypertension; R07.9 Chest pain, unspecified; Z88.5 Allergy status to narcotic agent; Z88.8 Allergy status to other drugs, medicaments and biological substances
CPT/HCPCS: 93005; 85025; 80048; 36415; 83735; 82550; 81025; 85610; 80076; 81003; 84484; 83880; 71275; 74175; 71045; 96375; 96374; 99284; Q9967; J1100; J7030

== ENCOUNTER 2023-03-17 13:42 | Emergency (ER) | payer BC ==
--- OUTSIDE RECORDS SUMMARY | 2023-03-17 13:47 | XMS REPORT | Continuity of Care Document ---
:1980 Author Organization [facility] t Address [address] [place] [address] [place] [id number] Care Team Providers Name Role Phone Asked, No Pcp Primary Care Physician Unavailable CHRETIEN_F Attending Clinician Unavailable Rosie GEE, Lisha Ewing Attending Clinician Jarad Velazquez DPM Attending Clinician Kelsey Davidson Attending Clinician [phone] Roberth Attending Clinician Unavailable WATERS_S Attending Clinician Unavailable Ramya GEE, Jonah Freedman Attending Clinician Samra Francois Attending Clinician [phone] LETY_Yojana Admitting Clinician Unavailable Roberth Admitting Clinician Unavailable WATERS_S Admitting Clinician Unavailable Payers Payer Name Policy Type Policy Number Effective Date Expiration Date Jenny rodriguez BS-[place]: AMANUEL [id number] ADVANTAGE ([facility]) 00:00:00 Problems Condition Condition Condition Status Onset Resolution Last Treating Co mments Source Name Details Category Date Date Treatment Clinician Date Candidiasi Candidiasi Problem Active S weeny s of s of 03-08 [facility] vagina Vagina 00:00: ty 00 [facility] Acute Acute Problem Active [place] pharyngiti Pharyngiti 03-08 [facility] s s 00:00: ty 00 [facility] Clin[facility] Neck pain Neck Pain Problem Active [facility] renzo 7- [facility] 00:00: ty [facility] Pain of Pain of Problem Active [place] right Right 6-13 [facility] shoulder Shoulder 00:00: ty joint Joint 00 [facility] Clin[facility] Nausea Nausea Problem Active [place] 3-20 [facility] 00:00: ty [facility] Essential Essential Problem Active Swe renzo hypertensi Hypertensi 3-08 [facility] on on 00:00: ty 00 [facility] Hypothyroi Hypothyroi Problem Active S weeny dism dism 3-06 [facility] 00:00: ty 00 [facility] Vitamin D Vitamin D Problem Active [facility] ren[facility] deficiency Deficiency 3-06 [facility] 00[facility]00: ty 00 [facility] Headache Headache Problem Active [facility] 3-06 [facility] 00:00: ty 00 [facility] Migraine Migraine Problem Active 2021-08 [facility] 1-09 [facility] 00:00: ty 00 [facility] Pain in Pain in Problem Active 2021-08 [place] throat Throat 1-09 [facility] 00:00: ty 00 [facility] Allergic Allergic Problem Active 2021-08 [facility] rhinitis Rhinitis 0-10 Commun i 00:00: ty 00 [facility] Pain in Pain in Problem Active [place] right foot Right Foot 9-17 Co [facility] 00:00: ty 00 [facility] Ganglion Ganglion Problem Active [facility] cyst Cyst 9-15 [facility] 00[facility]00: ty 00 [facility] Pain in Pain in Problem Active [place] left foot Left Foot 9-15 Comm uni 00:00: ty 00 [facility] Allergies, Adverse Reactions, Alerts Allergy Allergy Status Severity Reaction(s) Onset Inactive Treating Comm ents Source Name Type Date Date Clinician Aspirin- Propensi Active Rash Method i Sod ty to 4-30 st Bicarb-C adverse 00:00: Hospita itric reaction 00 l Acid s to drug Dicyclom Allergy Active Severe Anaphylaxis [facility] ine to Communi substanc ty e Hospita l Clinics LIZETTE-DAMIEN Allergy Active Anaphylaxis [facility] TZER to Communi PLUS substanc ty COLD/COU e Hospita l Clinics Tramadol Allergy Active Other [place] to Communi substanc ty e [facility]ospita l Clinics Social History Social Habit Start Date Stop Date Quantity Comments Source Gender identity 2023-02-08 Identifies as [facility] 15:23:55 female gender Hospital (finding) Sexual orientation 2023-02-08 Heterosexual Meth odist 15:23:55 (finding) Hospital Alcohol intake 2023-02-16 2023-02-16 [facility] 00:00:00 00:00:00 non-drinker Hospital (finding) History of Social 2023-02-16 2023-02-[address] function 00:00:00 00:00:00 Hospital Tobacco use and 2021-12-20 2021-12-20 Smokeless tobacco [facility]ist exposure 00:00:00 00:00:00 non-user Hospital Sex Assigned At [birth year] F [facility] 00:00:[facility]:00 [facility] Smoking Status Start Date Stop Date Source Never smoked tobacco [facility] Medications Ordered Filled Start Stop Current Ordering Indication Dosage Frequency Signature Comments Components Source Medication Medication Date Date Medication? Clinician (SIG) Name Name methylPREDN Yes [id number] 40mg M ethodi ISolone 02-16 st acetate 15:45: Hospita (DEPO-MEDRO 00 l L) injection 40 mg meloxicam 2023- Yes 15mg QD Take 1 Metho di (Mobic) 15 02-16 tablet (15 st mg tablet 00:00: 04:59 mg total) Ho spita 00 :00 by mouth l daily. Kenalog 40 Kenalog 40 2021-08 No Kenalog 40 [place] mg/mL mg/mL 0-10 mg/mL Communi suspension suspension 16:35: suspension ty for for 00 for Hospita injectionTa injectionTa injectionT l ke 40 mg by ke 40 mg by leonides 40 mg Clinics injection injection by route. route. injection route. Kenalog 40 Kenalog 40 2021-08 No Kenalog 40 [place] mg/mL mg/mL 0-10 mg/mL Communi suspension suspension [...] vomiting for up to 7 days. ondansetron 2022-0 2022- No 4mg Q8H Take 1 Met hodi ODT 4-30 05-08 tablet (4 st (ZOFRAN-ODT 00:00: 04:59 mg total) Hospita ) 4 MG 00 :00 by mouth l disintegrat every 8 ing tablet (eight) hours as needed for nausea or vomiting for up to 7 days. ondansetron 2022-0 2022- No 4mg Q8H Take 1 Met hodi ODT 4-30 05-08 tablet (4 st (ZOFRAN-ODT 00:00: 04:59 mg total) Hospita ) 4 MG 00 :00 by mouth l disintegrat every 8 ing tablet (eight) hours as needed for nausea or vomiting for up to 7 days. ondansetron 2022-0 2022- No 4mg Q8H Take 1 Met hodi ODT 4-30 05-08 tablet (4 st (ZOFRAN-ODT 00:00: 04:59 mg total) Hospita ) 4 MG 00 :00 by mouth l disintegrat every 8 ing tablet (eight) hours as needed for nausea or vomiting for up to 7 days. ondansetron 2022-0 2022- No 4mg Q8H Take 1 Met hodi ODT 4-30 05-08 tablet (4 st (ZOFRAN-ODT 00:00: 04:59 mg total) Hospita ) 4 MG 00 :00 by mouth l disintegrat every 8 ing tablet (eight) hours as needed for nausea or vomiting for up to 7 days. Advair Advair No Advair [place] Diskus 100 Diskus 100 Diskus 100 Communi mcg-50 mcg-50 mcg-50 ty mcg/dose mcg/dose mcg/dose Hos nadine powder for powder for powder for l inhalation inhalation inhalation Clinics INHALE 1 INHALE 1 INHALE 1 PUFF TWICE PUFF TWICE PUFF TWICE A DAY BY A DAY BY A DAY BY INHALATION INHALATION INHALATION ROUTE ROUTE ROUTE DIRECTED. DIRECTED. DIRECTED. dicyclomine dicyclomine No 1 QID dicyclomin [place] 20 mg 20 mg e 20 mg Communi tablet Take tablet Take tablet ty 1 tablet 4 1 tablet 4 Take 1 H ospita times a day times a day tablet 4 l by oral by oral times a Clinic s route as route as day by needed. needed. oral route as needed. gabapentin gabapentin No gabapentin [place] 100 mg 100 mg 100 mg Communi capsule capsule capsule ty TAKE 1 TAKE 1 TAKE 1 Hospita CAPSULE BY CAPSULE BY CAPSULE BY l MOUTH TWICE MOUTH TWICE MOUTH Clinics A DAY A DAY TWICE A DAY levothyroxi levothyroxi No levothyrox [place] ne 50 mcg ne 50 mcg ine 50 mcg Communi tablet Take tablet Take tablet ty 1 tablet 1 tablet Take 1 Hospi ta every day every day tablet l by oral by oral every day Clin ics route. route. by oral route. acetaminoph acetaminoph No 1 Q8H acetaminop [place] en 300 en 300 hen 300 Communi mg-codeine mg-codeine mg-codeine ty 30 mg 30 mg 30 mg Hospita tablet Take tablet Take tablet l 1 tablet 1 tablet Take 1 Clini cs every 8 every 8 tablet hours by hours by every 8 oral route oral route hours by as needed. as needed. oral route as needed. Advair Advair No Advair [place] Diskus 100 Diskus 100 Diskus 100 Communi mcg-50 mcg-50 mcg-50 ty mcg/dose mcg/dose mcg/dose Hos nadine powder for powder for powder for l inhalation inhalation inhalation Clinics INHALE 1 INHALE 1 INHALE 1 PUFF TWICE PUFF TWICE PUFF TWICE A DAY BY A DAY BY A DAY BY INHALATION INHALATION INHALATION ROUTE ROUTE ROUTE DIRECTED. DIRECTED. DIRECTED. dicyclomine dicyclomine No 1 QID dicyclomin [place] 20 mg 20 mg e 20 mg Communi tablet Take tablet Take tablet ty 1 tablet 4 1 tablet 4 Take 1 H ospita times a day times a day tablet 4 l by oral by oral times a Clinic s route as route as day by needed. needed. oral route as needed. EpiPen EpiPen No 1auto(s EpiPen [place] 2-Ludwin 0.3 2-Ludwin 0.3 ) 2-Ludwin 0.3 Communi mg/0.3 mL mg/0.3 mL mg/0.3 mL ty injection, injection, injection, Hospita auto-inject auto-inject auto-injec l or Take 1 or Take 1 tor Take 1 Clinics auto by auto by auto by injection injection injection route as route as route as needed. needed. needed. gabapentin gabapentin No gabapentin [place] 100 mg 100 mg 100 mg Communi capsule capsule capsule ty TAKE 1 TAKE 1 TAKE 1 Hospita CAPSULE BY CAPSULE BY CAPSULE BY l MOUTH TWICE MOUTH TWICE MOUTH Clinics A DAY A DAY TWICE A DAY levothyroxi levothyroxi No levothyrox [place] ne 50 mcg ne 50 mcg ine 50 mcg Communi tablet Take tablet Take tablet ty 1 tablet 1 tablet Take 1 Hospi ta every day every day tablet l by oral by oral every day Clin ics route. route. by oral route. Advair Advair No Advair [place] Diskus 100 Diskus 100 Diskus 100 Communi mcg-50 mcg-50 mcg-50 ty mcg/dose mcg/dose mcg/dose Hos nadine powder for powder for powder for l inhalation inhalation inhalation Clinics INHALE 1 INHALE 1 INHALE 1 PUFF TWICE PUFF TWICE PUFF TWICE A DAY BY A DAY BY A DAY BY INHALATION INHALATION INHALATION ROUTE ROUTE ROUTE DIRECTED. DIRECTED. DIRECTED. EpiPen EpiPen No 1auto(s EpiPen [place] 2-Ludwin 0.3 2-Ludwin 0.3 ) 2-Ludwin 0.3 Communi mg/0.3 mL mg/0.3 mL mg/0.3 mL ty injection, injection, injection, Hospita auto-inject auto-inject auto-injec l or Take 1 or Take 1 tor Take 1 Clinics auto by auto by auto by injection injection injection route as route as route as needed. needed. needed. famotidine famotidine No famotidine [place] 20 mg 20 mg 20 mg Communi tablet TAKE tablet TAKE tablet ty 1 TABLET BY 1 TABLET BY TAKE 1 Hospita MOUTH MOUTH TABLET BY l EVERYDAY AT EVERYDAY AT MOUTH Clinics BEDTIME BEDTIME EVERYDAY AT BEDTIME gabapentin gabapentin No gabapentin [place] 100 mg 100 mg 100 mg Communi capsule capsule capsule ty TAKE 1 TAKE 1 TAKE 1 Hospita CAPSULE BY CAPSULE BY CAPSULE BY l MOUTH TWICE MOUTH TWICE MOUTH Clinics A DAY A DAY TWICE A DIRECTED DIRECTED DAY DIRECTED levothyroxi levothyroxi No levothyrox [place] ne 50 mcg ne 50 mcg ine 50 mcg Communi tablet TAKE tablet TAKE tablet ty 1 TABLET BY 1 TABLET BY TAKE 1 Hospita MOUTH EVERY MOUTH EVERY TABLET BY l DAY DAY MOUTH Clinics EVERY DAY omeprazole omeprazole No omeprazole [place] 20 mg 20 mg 20 mg Communi capsule,del capsule,del capsule,de ty ayed ayed layed Hospita release release release l TAKE 1 TAKE 1 TAKE 1 Clinics CAPSULE BY CAPSULE BY CAPSULE BY MOUTH EVERY MOUTH EVERY MOUTH DAY IN THE DAY IN THE EVERY DAY MORNING MORNING IN THE MORNING Advair Advair No Advair [place] Diskus 100 Diskus 100 Diskus 100 Communi mcg-50 mcg-50 mcg-50 ty mcg/dose mcg/dose mcg/dose Hos nadine powder for powder for powder for l inhalation inhalation inhalation Clinics INHALE 1 INHALE 1 INHALE 1 PUFF TWICE PUFF TWICE PUFF TWICE A DAY BY A DAY BY A DAY BY INHALATION INHALATION INHALATION ROUTE ROUTE ROUTE DIRECTED. DIRECTED. DIRECTED. amlodipine amlodipine No 1 Q1D amlodipine [place] 2.5 mg 2.5 mg 2.5 mg Communi tablet Take tablet Take tablet ty 1 tablet 1 tablet Take 1 Hospi ta every day every day tablet l by oral by oral every day Clin ics route. route. by oral route. EpiPen EpiPen No 1auto(s EpiPen [place] 2-Ludwin 0.3 2-Ludwin 0.3 ) 2-Ludwin 0.3 Communi mg/0.3 mL mg/0.3 mL mg/0.3 mL ty injection, injection, injection, Hospita auto-inject auto-inject auto-injec l or Take 1 or Take 1 tor Take 1 Clinics auto by auto by auto by injection injection injection route as route as route as needed. needed. needed. famotidine famotidine No famotidine [place] 20 mg 20 mg 20 mg Communi tablet TAKE tablet TAKE tablet ty 1 TABLET BY 1 TABLET BY TAKE 1 Hospita MOUTH MOUTH TABLET BY l EVERYDAY AT EVERYDAY AT MOUTH Clinics BEDTIME BEDTIME EVERYDAY AT BEDTIME gabapentin gabapentin No gabapentin [place] 100 mg 100 mg 100 mg Communi capsule capsule capsule ty TAKE 1 TAKE 1 TAKE 1 Hospita CAPSULE BY CAPSULE BY CAPSULE BY l MOUTH TWICE MOUTH TWICE MOUTH Clinics A DAY A DAY TWICE A DIRECTED DIRECTED DAY DIRECTED Kenalog 40 Kenalog 40 No 40mg Kenalog 40 [place] mg/mL mg/mL mg/mL Communi suspension suspension suspension ty for for for Hospita injection injection injection l Take 40 mg Take 40 mg Take 40 mg Clinics by by by injection injection injection route. route. route. levothyroxi levothyroxi No levothyrox [place] ne 50 mcg ne 50 mcg ine 50 mcg Communi tablet TAKE tablet TAKE tablet ty 1 TABLET BY 1 TABLET BY TAKE 1 Hospita MOUTH EVERY MOUTH EVERY TABLET BY l DAY DAY MOUTH Clinics EVERY DAY omeprazole omeprazole No omeprazole [place] 20 mg 20 mg 20 mg Communi capsule,del capsule,del capsule,de ty ayed ayed layed Hospita release release release l TAKE 1 TAKE 1 TAKE 1 Clinics CAPSULE BY CAPSULE BY CAPSULE BY MOUTH EVERY MOUTH EVERY MOUTH DAY IN THE DAY IN THE EVERY DAY MORNING MORNING IN THE MORNING Advair Advair No Advair [place] Diskus 100 Diskus 100 Diskus 100 Communi mcg-50 mcg-50 mcg-50 ty mcg/dose mcg/dose mcg/dose [facility] nadine powder for powder for powder for l inhalation inhalation inhalation Clinics INHALE 1 INHALE 1 INHALE 1 PUFF TWICE PUFF TWICE PUFF TWICE A DAY BY A DAY BY A DAY BY INHALATION INHALATION INHALATION ROUTE ROUTE ROUTE DIRECTED. DIRECTED. DIRECTED. amlodipine amlodipine No amlodipine [place] 2.5 mg 2.5 mg 2.5 mg Communi tablet TAKE tablet TAKE tablet ty 1 TABLET BY 1 TABLET BY TAKE 1 Hospita MOUTH EVERY MOUTH EVERY TABLET BY l DAY DAY MOUTH Clinics EVERY DAY cetirizine cetirizine No cetirizine [place] 10 mg 10 mg 10 mg Communi tablet TAKE tablet TAKE tablet ty 1 TABLET BY 1 TABLET BY TAKE 1 Hospita MOUTH EVERY MOUTH EVERY TABLET BY l DAY DAY MOUTH Clinics NEEDED FOR NEEDED FOR EVERY DAY ALLERGIES ALLERGIES NEEDED FOR ALLERGIES EpiPen EpiPen No 1auto(s EpiPen [place] 2-Ludwin 0.3 2-Ludwin 0.3 ) 2-Ludwin 0.3 Communi mg/0.3 mL mg/0.3 mL mg/0.3 mL ty injection, injection, injection, Hospita auto-inject auto-inject auto-injec l or Take 1 or Take 1 tor Take 1 Clinics auto by auto by auto by injection injection injection route as route as route as needed. needed. needed. famotidine famotidine No famotidine [place] 20 mg 20 mg 20 mg Communi tablet TAKE tablet TAKE tablet ty 1 TABLET BY 1 TABLET BY TAKE 1 Hospita MOUTH MOUTH TABLET BY l EVERYDAY AT EVERYDAY AT MOUTH Clinics BEDTIME BEDTIME EVERYDAY AT BEDTIME gabapentin gabapentin No gabapentin [place] 100 mg 100 mg 100 mg Communi capsule capsule capsule ty TAKE 1 TAKE 1 TAKE 1 Hospita CAPSULE BY CAPSULE BY CAPSULE BY l MOUTH TWICE MOUTH TWICE MOUTH Clinics A DAY A DAY TWICE A DIRECTED DIRECTED DAY DIRECTED levothyroxi levothyroxi No levothyrox [place] ne 50 mcg ne 50 mcg ine 50 mcg Communi tablet TAKE tablet TAKE tablet ty 1 TABLET BY 1 TABLET BY TAKE 1 Hospita MOUTH EVERY MOUTH EVERY TABLET BY l DAY DAY MOUTH Clinics EVERY DAY omeprazole omeprazole No omeprazole [place] 20 mg 20 mg 20 mg Communi capsule,del capsule,del capsule,de ty ayed ayed layed Hospita release release release l TAKE 1 TAKE 1 TAKE 1 Clinics CAPSULE BY CAPSULE BY CAPSULE BY MOUTH EVERY MOUTH EVERY MOUTH DAY IN THE DAY IN THE EVERY DAY MORNING MORNING IN THE MORNING ondansetron ondansetron No 1 Q8H ondansetro [place] 4 mg 4 mg n 4 mg Communi disintegrat disintegrat disintegra ty ing tablet ing tablet ting [facility] Place 1 Place 1 tablet l tablet tablet Place 1 Clinics every 8 every 8 tablet hours by hours by every 8 translingua translingua hours by l route as l route as translingu needed. needed. al route as needed. orphenadrin orphenadrin No orphenadri [place] e citrate e citrate ne citrate Communi ER 100 mg ER 100 mg ER 100 mg ty tablet,exte tablet,exte tablet,ext Hospita nded nded ended l release release release Clinic s TAKE 1 TAKE 1 TAKE 1 TABLET BY TABLET BY TABLET BY MOUTH TWICE MOUTH TWICE MOUTH A DAY A DAY TWICE A NEEDED NEEDED DAY NEEDED promethazin promethazin No promethazi [place] e 25 mg e 25 mg ne 25 mg Commu ni tablet TAKE tablet TAKE tablet ty 1 TABLET BY 1 TABLET BY TAKE 1 Hospita MOUTH EVERY MOUTH EVERY TABLET BY l 6 HOURS 6 HOURS MOUTH Cl inics NEEDED FOR NEEDED FOR EVERY 6 NAUSEA NAUSEA HOURS NEEDED FOR NAUSEA Qulipta 60 Qulipta 60 No .5 Q1D Qulipta 60 [place] mg tablet mg tablet mg tablet Communi Take 0.5 Take 0.5 Take 0.5 ty tablets tablets tablets Hospit a every day every day every day l by oral by oral by oral Clinic s route. route. route. sumatriptan sumatriptan No sumatripta [place] 100 mg 100 mg n 100 mg Communi tablet TAKE tablet TAKE tablet ty 1 TABLET AT 1 TABLET AT TAKE 1 Hospita ONSET OF ONSET OF TABLET AT l HEADACHE. HEADACHE. ONSET OF C linics MAY REPEAT MAY REPEAT HEADACHE. DOSE IN 2 DOSE IN 2 MAY REPEAT HRS IF HRS IF DOSE IN 2 NEEDED. MAX NEEDED. MAX HRS IF 2 TABLETS 2 TABLETS NEEDED. IN 24 HRS IN 24 HRS MAX 2 TABLETS IN 24 HRS Advair Advair No Advair [place] Diskus 100 Diskus 100 Diskus 100 Communi mcg-50 mcg-50 mcg-50 ty mcg/dose mcg/dose mcg/dose [facility]ine powder for powder for powder for l inhalation inhalation inhalation Clinics INHALE 1 INHALE 1 INHALE 1 PUFF TWICE PUFF TWICE PUFF TWICE A DAY BY A DAY BY A DAY BY INHALATION INHALATION INHALATION ROUTE ROUTE ROUTE DIRECTED. DIRECTED. DIRECTED. amlodipine amlodipine No amlodipine [place] 5 mg tablet 5 mg tablet 5 mg C ommuni TAKE 1 TAKE 1 tablet ty TABLET BY TABLET BY TAKE 1 [facility] MOUTH EVERY MOUTH EVERY TABLET BY l DAY DAY MOUTH Clinics EVERY DAY cetirizine cetirizine No cetirizine [place] 10 mg 10 mg 10 mg Communi tablet TAKE tablet TAKE tablet ty 1 TABLET BY 1 TABLET BY TAKE 1 Hospita MOUTH EVERY MOUTH EVERY TABLET BY l DAY DAY MOUTH Clinics NEEDED FOR NEEDED FOR EVERY DAY ALLERGIES ALLERGIES NEEDED FOR ALLERGIES EpiPen EpiPen No 1auto(s EpiPen [place] 2-Ludwin 0.3 2-Ludwin 0.3 ) 2-Ludwin 0.3 Communi mg/0.3 mL mg/0.3 mL mg/0.3 mL ty injection, injection, injection, Hospita auto-inject auto-inject auto-injec l or Take 1 or Take 1 tor Take 1 Clinics auto by auto by auto by injection injection injection route as route as route as needed. needed. needed. famotidine famotidine No famotidine [place] 20 mg 20 mg 20 mg Communi tablet TAKE tablet TAKE tablet ty 1 TABLET BY 1 TABLET BY TAKE 1 Hospita MOUTH MOUTH TABLET BY l EVERYDAY AT EVERYDAY AT MOUTH Clinics BEDTIME BEDTIME EVERYDAY AT BEDTIME gabapentin gabapentin No 1capsul Q1D gabapentin [place] 100 mg 100 mg e(s) 100 mg Communi capsule capsule capsule ty Take 1 Take 1 Take 1 Hospita capsule capsule capsule l every day every day every day Clinics by oral by oral by oral route at route at route at bedtime for bedtime for bedtime 30 days. 30 days. for 30 days. levothyroxi levothyroxi No levothyrox [place] ne 50 mcg ne 50 mcg ine 50 mcg Communi tablet TAKE tablet TAKE tablet ty 1 TABLET BY 1 TABLET BY TAKE 1 Hospita MOUTH EVERY MOUTH EVERY TABLET BY l DAY DAY MOUTH Clinics EVERY DAY Medrol Medrol No 1dose Medrol [place] (Ludwin) 4 mg (Ludwin) 4 mg pk(s) (Ludwin) 4 mg Communi tablets in tablets in tablets in ty a dose pack a dose pack a dose Hospita Take 1 dose Take 1 dose pack Take l pk by oral pk by oral 1 dose pk Clinics route as route as by oral directed. directed. route as directed. omeprazole omeprazole No omeprazole [place] 20 mg 20 mg 20 mg Communi capsule,del capsule,del capsule,de ty ayed ayed layed Hospita release release release l TAKE 1 TAKE 1 TAKE 1 Clinics CAPSULE BY CAPSULE BY CAPSULE BY MOUTH IN MOUTH IN MOUTH IN THE MORNING THE MORNING THE MORNING ondansetron ondansetron No ondansetro [place] 4 mg 4 mg n 4 mg Communi disintegrat disintegrat disintegra ty ing tablet ing tablet ting [facility] PLACE [address] PLACE 1 tablet l TABLET ON TABLET ON PLACE 1 Cl inics TOP OF THE TOP OF THE TABLET ON TONGUE TONGUE TOP OF THE EVERY 8 EVERY 8 TONGUE HOURS HOURS EVERY 8 NEEDED NEEDED HOURS NEEDED orphenadrin orphenadrin No orphenadri [place] e citrate e citrate ne citrate Communi ER 100 mg ER 100 mg ER 100 mg ty tablet,exte tablet,exte tablet,ext Hospita nded nded ended l release release release Clinic s TAKE 1 TAKE 1 TAKE 1 TABLET BY TABLET BY TABLET BY MOUTH TWICE MOUTH TWICE MOUTH A DAY A DAY TWICE A NEEDED NEEDED DAY NEEDED Qulipta 60 Qulipta 60 No .5 Q1D Qulipta 60 [place] mg tablet mg tablet mg tablet Communi Take 0.5 Take 0.5 Take 0.5 ty tablets tablets tablets Hospit a every day every day every day l by oral by oral by oral Clinic s route. route. route. sumatriptan sumatriptan No sumatripta [place] 100 mg 100 mg n 100 mg Communi tablet TAKE tablet TAKE tablet ty 1 TABLET AT 1 TABLET AT TAKE 1 Hospita ONSET OF ONSET OF TABLET AT l HEADACHE. HEADACHE. ONSET OF C linics MAY REPEAT MAY REPEAT HEADACHE. DOSE IN 2 DOSE IN 2 MAY REPEAT HRS IF HRS IF DOSE IN 2 NEEDED. MAX NEEDED. MAX HRS IF 2 TABLETS 2 TABLETS NEEDED. IN 24 HRS IN 24 HRS MAX 2 TABLETS IN 24 HRS Advair Advair No Advair [place] Diskus 100 Diskus 100 Diskus 100 Communi mcg-50 mcg-50 mcg-50 ty mcg/dose mcg/dose mcg/dose [facility] powder for powder for powder for l inhalation inhalation inhalation Clinics INHALE 1 INHALE 1 INHALE 1 PUFF TWICE PUFF TWICE PUFF TWICE A DAY BY A DAY BY A DAY BY INHALATION INHALATION INHALATION ROUTE ROUTE ROUTE DIRECTED. DIRECTED. DIRECTED. amlodipine amlodipine No amlodipine [place] 5 mg tablet 5 mg tablet 5 mg C [facility]i TAKE 1 TAKE 1 tablet ty TABLET BY TABLET BY TAKE 1 [facility] MOUTH EVERY MOUTH EVERY TABLET BY l DAY DAY MOUTH Clinics EVERY DAY cetirizine cetirizine No cetirizine [place] 10 mg 10 mg 10 mg Communi tablet TAKE tablet TAKE tablet ty 1 TABLET BY 1 TABLET BY TAKE 1 Hospita MOUTH EVERY MOUTH EVERY TABLET BY l DAY DAY MOUTH Clinics NEEDED FOR NEEDED FOR EVERY DAY ALLERGIES ALLERGIES NEEDED FOR ALLERGIES EpiPen EpiPen No 1auto(s EpiPen [place] 2-Ludwin 0.3 2-Ludwin 0.3 ) 2-Ludwin 0.3 Communi mg/0.3 mL mg/0.3 mL mg/0.3 mL ty injection, injection, injection, Hospita auto-inject auto-inject auto-injec l or Take 1 or Take 1 tor Take 1 Clinics auto by auto by auto by injection injection injection route as route as route as needed. needed. needed. famotidine famotidine No famotidine [place] 20 mg 20 mg 20 mg [facility]i tablet TAKE tablet TAKE tablet ty 1 TABLET BY 1 TABLET BY TAKE 1 Hospita MOUTH MOUTH TABLET BY l EVERYDAY AT EVERYDAY AT MOUTH Clinics BEDTIME BEDTIME EVERYDAY AT BEDTIME gabapentin gabapentin No 1capsul Q1D gabapentin [place] 100 mg 100 mg e(s) 100 mg Communi capsule capsule capsule ty Take 1 Take 1 Take 1 Hospita capsule capsule capsule l every day every day every day Clinics by oral by oral by oral route at route at route at bedtime for bedtime for bedtime 30 days. 30 days. for 30 days. levothyroxi levothyroxi No levothyrox [place] ne 50 mcg ne 50 mcg ine 50 mcg Communi tablet TAKE tablet TAKE tablet ty 1 TABLET BY 1 TABLET BY TAKE 1 Hospita MOUTH EVERY MOUTH EVERY TABLET BY l DAY DAY MOUTH Clinics EVERY DAY Medrol Medrol No 1dose Medrol [place] (Ludwin) 4 mg (Ludwin) 4 mg pk(s) (Ludwin) 4 mg Communi tablets in tablets in tablets in ty a dose pack a dose pack a dose Hospita Take 1 dose Take 1 dose pack Take l pk by oral pk by oral 1 dose pk Clinics route as route as by oral directed. directed. route as directed. omeprazole omeprazole No omeprazole [place] 20 mg 20 mg 20 mg Communi capsule,del capsule,del capsule,de ty ayed ayed layed Hospita release release release l TAKE 1 TAKE 1 TAKE 1 Clinics CAPSULE BY CAPSULE BY CAPSULE BY MOUTH IN MOUTH IN MOUTH IN THE MORNING THE MORNING THE MORNING ondansetron ondansetron No ondansetro [place] 4 mg 4 mg n 4 mg Communi disintegrat disintegrat disintegra ty ing tablet ing tablet ting [facility] PLACE [address] 1 tablet l TABLET ON TABLET ON PLACE 1 Cl inics TOP OF THE TOP OF THE TABLET ON TONGUE TONGUE TOP OF THE EVERY 8 EVERY 8 TONGUE HOURS HOURS EVERY 8 NEEDED NEEDED HOURS NEEDED orphenadrin orphenadrin No orphenadri [place] e citrate e citrate ne citrate Communi ER 100 mg ER 100 mg ER 100 mg ty tablet,exte tablet,exte tablet,ext Hospita nded nded ended l release release release Clinic s TAKE 1 TAKE 1 TAKE 1 TABLET BY TABLET BY TABLET BY MOUTH TWICE MOUTH TWICE MOUTH A DAY A DAY TWICE A NEEDED NEEDED DAY NEEDED Qulipta 60 Qulipta 60 No .5 Q1D Qulipta 60 [place] mg tablet mg tablet mg tablet Communi Take 0.5 Take 0.5 Take 0.5 ty tablets tablets tablets Hospit a every day every day every day l by oral by oral by oral Clinic s route. route. route. sumatriptan sumatriptan No sumatripta [place] 100 mg 100 mg n 100 mg Communi tablet TAKE tablet TAKE tablet ty 1 TABLET AT 1 TABLET AT TAKE 1 Hospita ONSET OF ONSET OF TABLET AT l HEADACHE. HEADACHE. ONSET OF C linics MAY REPEAT MAY REPEAT HEADACHE. DOSE IN 2 DOSE IN 2 MAY REPEAT HRS IF HRS IF DOSE IN 2 NEEDED. MAX NEEDED. MAX HRS IF 2 TABLETS 2 TABLETS NEEDED. IN 24 HRS IN 24 HRS MAX 2 TABLETS IN 24 HRS Advair Advair No Advair [place] Diskus 100 Diskus 100 Diskus 100 Communi mcg-50 mcg-50 mcg-50 ty mcg/dose mcg/dose mcg/dose Hos nadine powder for powder for powder for l inhalation inhalation inhalation Clinics INHALE 1 INHALE 1 INHALE 1 PUFF TWICE PUFF TWICE PUFF TWICE A DAY BY A DAY BY A DAY BY INHALATION INHALATION INHALATION ROUTE ROUTE ROUTE DIRECTED. DIRECTED. DIRECTED. amlodipine amlodipine No 1 Q1D amlodipine [place] 5 mg tablet 5 mg tablet 5 mg C ommuni Take 1 Take 1 tablet ty tablet tablet Take 1 Hospita every day every day tablet l by oral by oral every day Clin ics route for route for by oral 30 days. 30 days. route for 30 days. EpiPen EpiPen No 1auto(s EpiPen [place] 2-Ludwin 0.3 2-Ludwin 0.3 ) 2-Ludwin 0.3 Communi mg/0.3 mL mg/0.3 mL mg/0.3 mL ty injection, injection, injection, Hospita auto-inject auto-inject auto-injec l or Take 1 or Take 1 tor Take 1 Clinics auto by auto by auto by injection injection injection route as route as route as needed. needed. needed. famotidine famotidine No famotidine [place] 20 mg 20 mg 20 mg Communi tablet TAKE tablet TAKE tablet ty 1 TABLET BY 1 TABLET BY TAKE 1 Hospita MOUTH MOUTH TABLET BY l EVERYDAY AT EVERYDAY AT MOUTH Clinics BEDTIME BEDTIME EVERYDAY AT BEDTIME fluconazole fluconazole No 1 Q1D fluconazol [place] 150 mg 150 mg e 150 mg Communi tablet Take tablet Take tablet ty 1 tablet 1 tablet Take 1 Hospi ta every day every day tablet l by oral by oral every day Clin ics route for 1 route for 1 by oral day. day. route for 1 day. gabapentin gabapentin No gabapentin [place] 100 mg 100 mg 100 mg Communi capsule capsule capsule ty TAKE 1 TAKE 1 TAKE 1 Hospita CAPSULE BY CAPSULE BY CAPSULE BY l MOUTH EVERY MOUTH EVERY MOUTH Clinics DAY AT DAY AT EVERY DAY BEDTIME FOR BEDTIME FOR AT BEDTIME 30 DAYS 30 DAYS FOR 30 DAYS levothyroxi levothyroxi No levothyrox [place] ne 50 mcg ne 50 mcg ine 50 mcg Communi tablet TAKE tablet TAKE tablet ty 1 TABLET BY 1 TABLET BY TAKE 1 Hospita MOUTH EVERY MOUTH EVERY TABLET BY l DAY DAY MOUTH Clinics EVERY DAY omeprazole omeprazole No omeprazole [place] 20 mg 20 mg 20 mg Commun[facility] capsule,del capsule,del capsule,de ty ayed ayed layed Hospita release release release l TAKE 1 TAKE 1 TAKE 1 Clinics CAPSULE BY CAPSULE BY CAPSULE BY MOUTH IN MOUTH IN MOUTH IN THE MORNING THE MORNING THE MORNING ondansetron ondansetron No ondansetro [place] 4 mg 4 mg n 4 mg Communi disintegrat disintegrat disintegra ty ing tablet ing tablet ting Hos nadine PLACE 1 PLACE 1 tablet l TABLET ON TABLET ON PLACE 1 Cl inics TOP OF THE TOP OF THE TABLET ON TONGUE TONGUE TOP OF THE EVERY 8 EVERY 8 TONGUE HOURS HOURS EVERY 8 NEEDED NEEDED HOURS NEEDED Qulipta 60 Qulipta 60 No .5 Q1D Qulipta 60 [place] mg tablet mg tablet mg tablet Communi Take 0.5 Take 0.5 Take 0.5 ty tablets tablets tablets Hospit a every day every day every day l by oral by oral by oral Clinic s route. route. route. sumatriptan sumatriptan No sumatripta [place] 100 mg 100 mg n 100 mg Commun[facility] tablet TAKE tablet TAKE tablet ty 1 TABLET AT 1 TABLET AT TAKE 1 Hospita ONSET OF ONSET OF TABLET AT l HEADACHE. HEADACHE. ONSET OF C linics MAY REPEAT MAY REPEAT HEADACHE. DOSE IN 2 DOSE IN 2 MAY REPEAT HRS IF HRS IF DOSE IN 2 NEEDED. MAX NEEDED. MAX HRS IF 2 TABLETS 2 TABLETS NEEDED. IN 24 HRS IN 24 HRS MAX 2 TABLETS IN 24 HRS Zithromax Zithromax No Zithromax [place] 250 mg 250 mg 250 mg Communi tablet TAKE tablet TAKE tablet ty 2 TABLETS 2 TABLETS TAKE 2 Hos nadine (500 MG) BY (500 MG) BY TABLETS l ORAL ROUTE ORAL ROUTE (500 MG) Clinics ONCE DAILY ONCE DAILY BY ORAL FOR 1 DAY FOR 1 DAY ROUTE ONCE THEN 1 THEN 1 DAILY FOR TABLET (250 TABLET (250 1 DAY THEN MG) BY ORAL MG) BY ORAL 1 TABLET ROUTE ONCE ROUTE ONCE (250 MG) DAILY FOR 4 DAILY FOR 4 BY ORAL DAYS DAYS ROUTE ONCE DAILY FOR 4 DAYS acetaminoph acetaminoph No 1 TID acetaminop [place] en 300 en 300 hen 300 Communi mg-codeine mg-codeine mg-codeine ty 30 mg 30 mg 30 mg Hospita tablet Take tablet Take tablet l 1 tablet 3 1 tablet 3 Take 1 C linics times a day times a day tablet 3 by oral by oral times a route as route as day by needed. needed. oral route as needed. Advair Advair No Advair [place] Diskus 100 Diskus 100 Diskus 100 Communi mcg-50 mcg-50 mcg-50 ty mcg/dose mcg/dose mcg/dose Hos nadine powder for powder for powder for l inhalation inhalation inhalation Clinics INHALE 1 INHALE 1 INHALE 1 PUFF TWICE PUFF TWICE PUFF TWICE A DAY BY A DAY BY A DAY BY INHALATION INHALATION INHALATION ROUTE ROUTE ROUTE DIRECTED. DIRECTED. DIRECTED. amlodipine amlodipine No amlodipine [place] 5 mg tablet 5 mg tablet 5 mg C ommuni TAKE 1 TAKE 1 tablet ty TABLET BY TABLET BY TAKE 1 Hos nadine MOUTH EVERY MOUTH EVERY TABLET BY l DAY FOR 30 DAY FOR 30 MOUTH Cl inics DAYS DAYS EVERY DAY FOR 30 DAYS EpiPen EpiPen No 1auto(s EpiPen [place] 2-Ludwin 0.3 2-Ludwin 0.3 ) 2-[place]udwin 0.3 Communi mg/0.3 mL mg/0.3 mL mg/0.3 mL ty injection, injection, injection, Hospita auto-inject auto-inject auto-injec l or Take 1 or Take 1 tor Take 1 Clinics auto by auto by auto by injection injection injection route as route as route as needed. needed. needed. famotidine famotidine No famotidine [place] 20 mg 20 mg 20 mg Communi tablet TAKE tablet TAKE tablet ty 1 TABLET BY 1 TABLET BY TAKE 1 Hospita MOUTH MOUTH TABLET BY l EVERYDAY AT EVERYDAY AT MOUTH Clinics BEDTIME BEDTIME EVERYDAY AT BEDTIME gabapentin gabapentin No gabapentin [place] 100 mg 100 mg 100 mg Communi capsule capsule capsule ty TAKE 1 TAKE 1 TAKE 1 Hospita CAPSULE BY CAPSULE BY CAPSULE BY l MOUTH EVERY MOUTH EVERY MOUTH Clinics DAY AT DAY AT EVERY DAY BEDTIME FOR BEDTIME FOR AT BEDTIME 30 DAYS 30 DAYS FOR 30 DAYS levothyroxi levothyroxi No levothyrox [place] ne 50 mcg ne 50 mcg ine 50 mcg Communi tablet TAKE tablet TAKE tablet ty 1 TABLET BY 1 TABLET BY TAKE 1 Hospita MOUTH EVERY MOUTH EVERY TABLET BY l DAY DAY MOUTH Clinics EVERY DAY omeprazole omeprazole No omeprazole [place] 20 mg 20 mg 20 mg Commun[facility] capsule,del capsule,del capsule,de ty ayed ayed layed Hospita release release release l TAKE 1 TAKE 1 TAKE 1 Clinics CAPSULE BY CAPSULE BY CAPSULE BY MOUTH IN MOUTH IN MOUTH IN THE MORNING THE MORNING THE MORNING ondansetron ondansetron No ondansetro [place] 4 mg 4 mg n 4 mg Communi disintegrat disintegrat disintegra ty ing tablet ing tablet ting Hos nadine PLACE 1 PLACE 1 tablet l TABLET ON TABLET ON PLACE 1 Cl inics TOP OF THE TOP OF THE TABLET ON TONGUE TONGUE TOP OF THE EVERY 8 EVERY 8 TONGUE HOURS HOURS EVERY 8 NEEDED NEEDED HOURS NEEDED orphenadrin orphenadrin No orphenadri [place] e citrate e citrate ne citrate Communi 100 mg 100 mg 100 mg ty tablet Take tablet Take tablet Hospita by oral by oral Take by l route. route. oral Clinics route. Qulipta 60 Qulipta 60 No .5 Q1D Qulipta 60 [place] mg tablet mg tablet mg tablet Communi Take 0.5 Take 0.5 Take 0.5 ty tablets tablets tablets Hospit a every day every day every day l by oral by oral by oral Clinic s route. route. route. sumatriptan sumatriptan No sumatripta [place] 100 mg 100 mg n 100 mg Communi tablet TAKE tablet TAKE tablet ty 1 TABLET AT 1 TABLET AT TAKE 1 Hospita ONSET OF ONSET OF TABLET AT l HEADACHE. HEADACHE. ONSET OF C linics MAY REPEAT MAY REPEAT HEADACHE. DOSE IN 2 DOSE IN 2 MAY REPEAT HRS IF HRS IF DOSE IN 2 NEEDED. MAX NEEDED. MAX HRS IF 2 TABLETS 2 TABLETS NEEDED. IN 24 HRS IN 24 HRS MAX 2 TABLETS IN 24 HRS gabapentin gabapentin No gabapentin [place] 100 mg 100 mg 100 mg Communi capsule capsule capsule ty Take 1 Take 1 Take 1 Hospita capsule capsule capsule l twice a day twice a day twice a Clinics by oral by oral day by route. route. oral route. Kenalog 40 Kenalog 40 No 40mg Kenalog 40 [place] mg/mL mg/mL mg/mL Communi suspension suspension suspension ty for for for Hospita injection injection injection l Take 40 mg Take 40 mg Take 40 mg Clinics by by by injection injection injection route. route. route. acetaminoph acetaminoph No 1 Q7H acetaminop [place] en 300 en 300 hen 300 Communi mg-codeine mg-codeine mg-codeine ty 30 mg 30 mg 30 mg Hospita tablet Take tablet Take tablet l 1 tablet 1 tablet Take 1 Clini cs every 6-8 every 6-8 tablet hours by hours by every 6-8 oral route oral route hours by as needed. as needed. oral route as needed. gabapentin gabapentin No 1capsul BID gabapentin [place] 100 mg 100 mg e(s) 100 mg Communi capsule capsule capsule ty Take 1 Take 1 Take 1 Hospita capsule capsule capsule l twice a day twice a day twice a Clinics by oral by oral day by route. route. oral route. acetaminoph acetaminoph No 1 Q8H acetaminop [place] en 300 en 300 hen 300 Communi [...] Ordered Immunization Filled Immunization Date Status Commen Source Name Name COVID-19, mRNA, COVID-19, mRNA, 2022-03-17 Completed [facility] LNP-S, PF, 30 LNP-S, PF, 30 00:00:00 [facility] mcg/0.3 mL dose mcg/0.3 mL dose ([employer]) ([employer]) COVID-19, mRNA, COVID-19, mRNA, 2022-03-17 Completed [facility] LNP-S, PF, 30 LNP-S, PF, 30 00:00:00 [facility] mcg/0.3 mL dose mcg/0.3 mL dose ([employer]) ([employer]) COVID-19, mRNA, COVID-19, mRNA, 2022-03-17 Completed [facility] LNP-S, PF, 30 LNP-S, PF, 30 00:00:00 Hospital Clinics mcg/0.3 mL dose mcg/0.3 mL dose ([employer]) ([employer]) COVID-19, mRNA, COVID-19, mRNA, 2022-03-17 Completed [facility] LNP-S, PF, 30 LNP-S, PF, 30 00:00:00 Hospital Clinics mcg/0.3 mL dose mcg/0.3 mL dose ([employer]) ([employer]) COVID-19, mRNA, COVID-19, mRNA, 2022-03-17 Completed [facility] LNP-S, PF, 30 LNP-S, PF, 30 00:00:00 Hospital Clinics mcg/0.3 mL dose mcg/0.3 mL dose ([employer]) ([employer]) COVID-19, mRNA, COVID-19, mRNA, 2022-03-17 Completed [facility] LNP-S, PF, 30 LNP-S, PF, 30 00:00:00 Hospital Clinics mcg/0.3 mL dose mcg/0.3 mL dose ([employer]) ([employer]) COVID-19, mRNA, COVID-19, mRNA, 2022-03-17 Completed [facility] LNP-S, PF, 30 LNP-S, PF, 30 00:00:00 Hospital Clinics mcg/0.3 mL dose mcg/0.3 mL dose ([employer]) ([employer]) COVID-19, mRNA, COVID-19, mRNA, 2022-03-17 Completed [facility] LNP-S, PF, 30 LNP-S, PF, 30 00:00:00 Hospital Clinics mcg/0.3 mL dose mcg/0.3 mL dose ([employer]) (Pf[employer]) COVID-19, mRNA, COVID-19, mRNA, 2022-03-17 Completed [facility] LNP-S, PF, 30 LNP-S, PF, 30 00:00:00 Hospital Clinics mcg/0.3 mL dose mcg/0.3 mL dose ([employer]) ([employer]) COVID-19, mRNA, COVID-19, mRNA, 2022-03-17 Completed [facility] LNP-S, PF, 30 LNP-S, PF, 30 00:00:00 Hospital Clinics mcg/0.3 mL dose mcg/0.3 mL dose ([employer]) ([employer]) COVID-19, mRNA, COVID-19, mRNA, 2021-03-04 Completed [facility] LNP-S, PF, 100 LNP-S, PF, 100 00:00:00 Hospit al Clinics mcg/0.5 mL dose mcg/0.5 mL dose ([employer]) (Modern[employer]) COVID-19, mRNA, COVID-19, mRNA, 2021-03-04 Completed [facility] LNP-S, PF, 100 LNP-S, PF, 100 00:00:00 Hospit al Clinics mcg/0.5 mL dose mcg/0.5 mL dose (Modern[employer]) (Modern[employer]) COVID-19, mRNA, COVID-19, mRNA, 2021-03-04 Completed [facility] LNP-S, PF, 100 LNP-S, PF, 100 00:00:00 Hospit al Clinics mcg/0.5 mL dose mcg/0.5 mL dose (Modern[employer]) (Modern[employer]) COVID-19, mRNA, COVID-19, mRNA, 2021-03-04 Completed [facility] LNP-S, PF, 100 LNP-S, PF, 100 00:00:00 Hospit al Clinics mcg/0.5 mL dose mcg/0.5 mL dose (Modern[employer]) (Moderna) COVID-19, mRNA, COVID-19, mRNA, 2021-03-04 Completed [facility] LNP-S, PF, 100 LNP-S, PF, 100 00:00:00 Hospit al Clinics mcg/0.5 mL dose mcg/0.5 mL dose (Moderna) (Moderna) COVID-19, mRNA, COVID-19, mRNA, 2021-03-04 Completed [facility] LNP-S, PF, 100 LNP-S, PF, 100 00:00:00 Hospit al Clinics mcg/0.5 mL dose mcg/0.5 mL dose (Modern[employer]) (Modern[employer]) COVID-19, mRNA, COVID-19, mRNA, 2021-03-04 Completed [facility] LNP-S, PF, 100 LNP-S, PF, 100 00:00:00 Hospit al Clinics mcg/0.5 mL dose mcg/0.5 mL dose (Modern[employer]) (Modern[employer]) COVID-19, mRNA, COVID-19, mRNA, 2021-03-04 Completed [facility] LNP-S, PF, 100 LNP-S, PF, 100 00:00:00 Hospit al Clinics mcg/0.5 mL dose mcg/0.5 mL dose (Moderna) (Modern[employer]) COVID-19, mRNA, COVID-19, mRNA, 2021-03-04 Completed [facility] LNP-S, PF, 100 LNP-S, PF, 100 00:00:00 Hospit al Clinics mcg/0.5 mL dose mcg/0.5 mL dose (Moderna) (Moderna) COVID-19, mRNA, COVID-19, mRNA, 2021-03-04 Completed [facility] LNP-S, PF, 100 LNP-S, PF, 100 00:00:00 Hospit al Clinics mcg/0.5 mL dose mcg/0.5 mL dose (Moderna) (Moderna) COVID-19, mRNA, COVID-19, mRNA, 2021-03-04 Completed [facility] LNP-S, PF, 100 LNP-S, PF, 100 00:00:00 Hospit al Clinics mcg/0.5 mL dose mcg/0.5 mL dose (Moderna) (Moderna) COVID-19, mRNA, COVID-19, mRNA, 2021-03-04 Completed [facility] LNP-S, PF, 100 LNP-S, PF, 100 00:00:00 Hospit al Clinics mcg/0.5 mL dose mcg/0.5 mL dose (Moderna) (Modern[employer]) COVID-19, mRNA, COVID-19, mRNA, 2021-03-04 Completed [facility] LNP-S, PF, 100 LNP-S, PF, 100 00:00:00 Hospit in Clinics mcg/0.5 mL dose mcg/0.5 mL dose (Moderna) (Moderna) COVID-19, mRNA, COVID-19, mRNA, 2020-11-26 Completed [facility] LNP-S, PF, 100 LNP-S, PF, 100 00:00:00 Hospit al Clinics mcg/0.5 mL dose mcg/0.5 mL dose (Moderna) (Moderna) COVID-19, mRNA, COVID-19, mRNA, 2020-11-26 Completed [facility] LNP-S, PF, 100 LNP-S, PF, 100 00:00:00 Hospit al Clinics mcg/0.5 mL dose mcg/0.5 mL dose (Moderna) (Moderna) COVID-19, mRNA, COVID-19, mRNA, 2020-11-26 Completed [facility] LNP-S, PF, 100 LNP-S, PF, 100 00:00:00 Hospit in Clinics mcg/0.5 mL dose mcg/0.5 mL dose (Moderna) (Moderna) COVID-19, mRNA, COVID-19, mRNA, 2020-11-26 Completed [facility] LNP-S, PF, 100 LNP-S, PF, 100 00:00:00 Hospit in Clinics mcg/0.5 mL dose mcg/0.5 mL dose (Moderna) (Moderna) COVID-19, mRNA, COVID-19, mRNA, 2020-11-26 Completed [facility] LNP-S, PF, 100 LNP-S, PF, 100 00:00:00 Hospit in Clinics mcg/0.5 mL dose mcg/0.5 mL dose (Moderna) (Moderna) COVID-19, mRNA, COVID-19, mRNA, 2020-11-26 Completed [facility] LNP-S, PF, 100 LNP-S, PF, 100 00:00:00 Hospit in Clinics mcg/0.5 mL dose mcg/0.5 mL dose (Moderna) (Moderna) COVID-19, mRNA, COVID-19, mRNA, 2020-11-26 Completed [facility] LNP-S, PF, 100 LNP-S, PF, 100 00:00:00 Hospit in Clinics mcg/0.5 mL dose mcg/0.5 mL dose (Moderna) (Moderna) COVID-19, mRNA, COVID-19, mRNA, 2020-11-26 Completed [facility] LNP-S, PF, 100 LNP-S, PF, 100 00:00:00 Hospit al Clinics mcg/0.5 mL dose mcg/0.5 mL dose (Moderna) (Moderna) COVID-19, mRNA, COVID-19, mRNA, 2020-11-26 Completed [facility] LNP-S, PF, 100 LNP-S, PF, 100 00:00:00 Hospit al Clinics mcg/0.5 mL dose mcg/0.5 mL dose (Moderna) (Moderna) COVID-19, mRNA, COVID-19, mRNA, 2020-11-26 Completed [facility] LNP-S, PF, 100 LNP-S, PF, 100 00:00:00 Hospit in Clinics mcg/0.5 mL dose mcg/0.5 mL dose (Moderna) (Moderna) COVID-19, mRNA, COVID-19, mRNA, 2020-11-26 Completed [facility] LNP-S, PF, 100 LNP-S, PF, 100 00:00:00 Hospit in Clinics mcg/0.5 mL dose mcg/0.5 mL dose (Moderna) (Moderna) COVID-19, mRNA, COVID-19, mRNA, 2020-11-26 Completed [facility] LNP-S, PF, 100 LNP-S, PF, 100 00:00:00 Hospit in Clinics mcg/0.5 mL dose mcg/0.5 mL dose (Moderna) (Moderna) COVID-19, mRNA, COVID-19, mRNA, 2020-11-26 Completed [facility] LNP-S, PF, 100 LNP-S, PF, 100 00:00:00 Hospit al Clinics mcg/0.5 mL dose mcg/0.5 mL dose (Moderna) (Moderna) Vital Signs Vital Name Observation Time Observation Value Comments Source BP Diastolic 2023-03-16 00:00:00 70 mm[Hg] [facility] Height 2023-03-16 00:00:00 64 [in_i] [facility] BMI (Body Mass 2023-03-16 00:00:00 31 kg/m2 [facility] BP Systolic 2023-03-16 00:00:00 117 mm[Hg] [facility] Body Weight 2023-03-16 00:00:00 2889.6 [oz_av] [facility] s BP Diastolic 2023-03-08 00:00:00 73 mm[Hg] [facility] Height 2023-03-08 00:00:00 64 [in_i] [facility] s BMI (Body Mass 2023-03-08 00:00:00 31.2 kg/m2 [facility] BP Systolic 2023-03-08 00:00:00 121 mm[Hg] [facility] s Body Weight 2023-03-08 00:00:00 2908.8 [oz_av] [facility] s BP Diastolic 2023-02-02 00:00:00 61 mm[Hg] [facility] Height 2023-02-02 00:00:00 64 [in_i] [facility] BMI (Body Mass 2023-02-02 00:00:00 31 kg/m2 [facility] s BP Systolic 2023-02-02 00:00:00 111 mm[Hg] [facility] Body Weight 2023-02-02 00:00:00 2892.8 [oz_av] [facility] s BP Diastolic 2022-11-09 00:00:00 83 mm[Hg] [facility] s Height 2022-11-09 00:00:00 64 [in_i] [facility] s BMI (Body Mass 2022-11-09 00:00:00 31.3 kg/m2 [facility] BP Systolic 2022-11-09 00:00:00 126 mm[Hg] [facility] Body Weight 2022-11-09 00:00:00 2921.6 [oz_av] [facility] s BP Diastolic 2022-10-28 00:00:00 85 mm[Hg] [facility] Height 2022-10-28 00:00:00 64 [in_i] [facility] BP Systolic 2022-10-28 00:00:00 146 mm[Hg] [facility] s BP Diastolic 2022-10-26 00:00:00 88 mm[Hg] [facility] Height 2022-10-26 00:00:00 64 [in_i] [facility] BMI (Body Mass 2022-10-26 00:00:00 31.8 kg/m2 [facility] s BP Systolic 2022-10-26 00:00:00 139 mm[Hg] [facility] s Body Weight 2022-10-26 00:00:00 2966.4 [oz_av] [facility] s BP Diastolic 2022-07-01 00:00:00 72 mm[Hg] [facility] Height 2022-07-01 00:00:00 64 [in_i] [facility] BMI (Body Mass 2022-07-01 00:00:00 31.2 kg/m2 [facility] s BP Systolic 2022-07-01 00:00:00 113 mm[Hg] [facility] s Body Weight 2022-07-01 00:00:00 2912 [oz_av] [facility] s BP Diastolic 2022-06-29 00:00:00 86 mm[Hg] [facility] Height 2022-06-29 00:00:00 64 [in_i] [facility] s BMI (Body Mass 2022-06-29 00:00:00 31.2 kg/m2 [facility] s BP Systolic 2022-06-29 00:00:00 132 mm[Hg] [facility] Body Weight 2022-06-29 00:00:00 2905.6 [oz_av] [facility] s BP Diastolic 2022-06-01 00:00:00 80 mm[Hg] [facility] s Height 2022-06-01 00:00:00 64 [in_i] [facility] s BMI (Body Mass 2022-06-01 00:00:00 32.3 kg/m2 [facility] BP Systolic 2022-06-01 00:00:00 123 mm[Hg] [facility] s Body Weight 2022-06-01 00:00:00 3008 [oz_av] [facility] BP Diastolic 2022-05-07 00:00:00 87 mm[Hg] [facility] Height 2022-05-07 00:00:00 64 [in_i] [facility] BMI (Body Mass 2022-05-07 00:00:00 32.1 kg/m2 [facility] s BP Systolic 2022-05-07 00:00:00 135 mm[Hg] [facility] Body Weight 2022-05-07 00:00:00 2988.8 [oz_av] [facility] s BP Diastolic 2022-01-20 00:00:00 73 mm[Hg] [facility] Height 2022-01-20 00:00:00 64 [in_i] [facility] s BMI (Body Mass 2022-01-20 00:00:00 31.5 kg/m2 [facility] BP Systolic 2022-01-20 00:00:00 129 mm[Hg] [facility] Body Weight 2022-01-20 00:00:00 2934.4 [oz_av] [facility] s BP Diastolic 2021-10-30 00:00:00 91 mm[Hg] [facility] s Height 2021-10-30 00:00:00 64 [in_i] [facility] s BMI (Body Mass 2021-10-30 00:00:00 33.6 kg/m2 [facility] BP Systolic 2021-10-30 00:00:00 150 mm[Hg] [facility] s Body Weight 2021-10-30 00:00:00 3132.8 [oz_av] [facility] s Body height 2023-02-16 15:17:00 162.6 cm [facility] Body weight 2023-02-16 15:17:00 80.287 kg [facility] BMI 2023-02-16 15:17:00 30.38 kg/m2 [facility] Systolic blood 2021-12-20 18:34:00 119 mm[Hg] [facility] pressure Diastolic blood 2021-12-20 18:34:00 60 mm[Hg] [facility] pressure Heart rate 2021-12-20 18:34:00 61 /min [facility] Body temperature 2021-12-20 18:34:00 37.06 Lisa [facility] Respiratory rate 2021-12-20 18:34:00 17 /min [facility] Oxygen saturation in 2021-12-20 18:34:00 96 /min [facility] Arterial blood by Pulse oximetry Body height 2021-12-20 15:46:00 165.1 cm [facility] Body weight 2021-12-20 15:46:00 83.008 kg [facility] BMI 2021-12-20 15:46:00 30.45 kg/m2 [facility] Procedures Procedure Date / Time Performing Clinician Source Performed XR SHOULDER 2+ VW RIGHT 2023-02-16 15:19:12 Lisha Velez [facility] MI ARTHROCENTESIS 2023-02-16 15:10:00 Lisha Velez [facility] ASPIR&/INJ MAJOR JT/BURSA W/O US MAMMO, screening, digital, 2022-06-01 00:00:00 [facility] XR FOOT 3+ VW LEFT 2022-05-08 15:55:56 Vu, [facility] XR ANKLE 3+ VW LEFT 2022-05-08 15:55:41 Vu, [facility] CT ABDOMEN PELVIS W 2021-12-20 18:48:55 Ray, [facility] CONTRAST URINE CULTURE 2021-12-20 16:29:00 Ray, [facility] HCG QUALITATIVE, SERUM 2021-12-20 16:29:00 Ray, [facility] SCREEN CBC WITH PLATELET AND 2021-12-20 16:29:00 [place] [facility] DIFFERENTIAL COMPREHENSIVE METABOLIC 2021-12-20 16:29:00 Ray, [facility] PANEL LIPASE LEVEL 2021-12-20 [facility] 2021-12-20 16:29:00 Ray [facility] MICROSCOPY, WITH REFLEX TO CULTURE ESTIMATED GFR 2021-12-20 16:29:00 Ray, [facility] US, pelvis, complete 2021-10-30 00:00:00 [facility] Gastric Bypass for Obesity 2020-12-11 00:00:00 [facility] Ch[facility] Clinics Section [facility] Clinics Plan of Care Planned Activity Planned Date Details Comments Source Future Scheduled Test 2023-03-16 Hepatitis C [facility] 14:48:02 screening (procedure) [code = 275148793] Future Scheduled Test 2023-03-16 Screening for [facility] 14:48:02 malignant neoplasm of cervix (procedure) [code = 215997231] Future Scheduled Test 2023-03-16 BREAST CANCER [facility] 14:48:02 SCREENING [code = BREAST CANCER SCREENING] Future Scheduled Test 2023-03-16 COVID-19 VACCINE ([address] [place] [address] 14:48:02 - Mixed Product series) [code = COVID-19 VACCINE ( - Mixed Product series)] Future Scheduled Test 2023-03-[address] [facility] 14:48:02 [code = INFLUENZA VACCINE] Diagnostic Test 2023-03-08 rapid SARS CoV 2 Ag, [facility] Pending 00:00:00 QL [place], respiratory Hospital Clinics specimen [code = rapid SARS CoV 2 Ag, QL [place], respiratory specimen] Diagnostic Test 2023-03-08 rapid strep group A, [facility] Pending 00:00:00 throat [code = rapid Hospita l Clinics strep group A, throat] Future Scheduled Test 2022-11-17 Hepatitis C [facility] 11:57:47 screening (procedure) [code = 626222483] Future Scheduled Test 2022-11-17 Screening for [facility] 11:57:47 malignant neoplasm of cervix (procedure) [code = 988805178] Future Scheduled Test 2022-11-17 BREAST CANCER [facility] 11:57:47 SCREENING [code = BREAST CANCER SCREENING] Future Scheduled Test 2022-11-17 COVID-19 VACCINE ([address] [place] [address] 11:57:47 - Booster) [code = COVID-19 VACCINE (4 - Booster)] Future Scheduled Test 2022-11-[address] [facility] 11:57:47 [code = INFLUENZA VACCINE] Future Scheduled Test 2022-08-10 Hepatitis C [facility] 18:01:35 screening (procedure) [code = 366818261] Future Scheduled Test 2022-08-10 Screening for [facility] 18:01:35 malignant neoplasm of cervix (procedure) [code = 305273854] Future Scheduled Test 2022-08-10 BREAST CANCER [facility] 18:01:35 SCREENING [code = BREAST CANCER SCREENING] Future Scheduled Test 2022-08-10 COVID-19 VACCINE ([address] [place] [address] 18:01:35 - Booster) [code = COVID-19 VACCINE (4 - Booster)] Future Scheduled Test 2022-08-[address] [facility] 18:01:35 [code = INFLUENZA VACCINE] Future Scheduled Test 2022-08-10 Hepatitis C [facility] 18:01:35 screening (procedure) [code = 040890083] Future Scheduled Test 2022-08-10 Screening for [facility] 18:01:35 malignant neoplasm of cervix (procedure) [code = 856612248] Future Scheduled Test 2022-08-10 BREAST CANCER [facility] 18:01:35 SCREENING [code = BREAST CANCER SCREENING] Future Scheduled Test 2022-08-10 COVID-19 VACCINE ([address] [place] [address] 18:01:35 - Booster) [code = COVID-19 VACCINE (4 - Booster)] Future Scheduled Test 2022-08-[address] [facility] 18:01:35 [code = INFLUENZA VACCINE] Future Scheduled Test 2022-08-10 Hepatitis C [facility] 18:01:35 screening (procedure) [code = 864070576] Future Scheduled Test 2022-08-10 Screening for [facility] 18:01:35 malignant neoplasm of cervix (procedure) [code = 637825253] Future Scheduled Test 2022-08-10 BREAST CANCER [facility] 18:01:35 SCREENING [code = BREAST CANCER SCREENING] Future Scheduled Test 2022-08-10 COVID-19 VACCINE ([address] [place] [address] 18:01:35 - Booster) [code = COVID-19 VACCINE (4 - Booster)] Future Scheduled Test 2022-08-[address] [facility] 18:01:35 [code = INFLUENZA VACCINE] Future Scheduled Test 2022-07-03 HEPATITIS B VACCINES [facility] 10:59:24 (1 of 3 - 3-dose series) [code = HEPATITIS B VACCINES (1 of 3 - 3-dose series)] Future Scheduled Test 2022-07-03 Hepatitis C [facility] 10:59:24 screening (procedure) [code = 527336860] Future Scheduled Test 2022-07-03 Screening for [facility] 10:59:24 malignant neoplasm of cervix (procedure) [code = 334097606] Future Scheduled Test 2022-07-03 BREAST CANCER [facility] 10:59:24 SCREENING [code = BREAST CANCER SCREENING] Future Scheduled Test 2022-07-03 COVID-19 VACCINE ([address] [place] [address] 10:59:24 - Booster) [code = COVID-19 VACCINE (4 - Booster)] Future Scheduled Test 2022-07-[address] [facility] 10:59:24 [code = INFLUENZA VACCINE] Instructions [facility] Clinic s Encounters Start End Encounter Admission Attending Care Care Encounter Source Date/Time Date/Time Type Type Clinicians Facility Department ID 2023-03-16 2023-03-16 Outpatient [facility] [id number] [place] 00:00:00 00:00:00 0725 Commun i ty [facility] 2023-03-16 2023-03-16 Kelsey [facility] [place] 00:00:00 00:00:[address] [facility] Hospital - ty C: [address], [address] [address] , Ph. 2023-03-08 2023-03-08 Outpatient [place] [place] [id number] [place] 00:00:00 00:00:00 0717 Commun i ty [facility] 2023-03-08 2023-03-08 Kelsey [facility] [place] 00:00:00 00:00:00 [facility] C: [address], [address] [place] [address] , Ph. 2023-02-16 2023-02-16 [facility] 1.2.840.1 [id number] [facility] 10:10:00 10:41:41 Visit Lisha Ewing [address]12.1.[address] 3.430.2.7 Hospit a .3.883933 l .8 2023-02-16 2023-02-16 Outpatient MAFFET, [facility] [id number] [place] 00:00:00 00:00:00 LISHA [address] 2023-02-16 2023-02-16 Outpatient MAFFET, [facility] [id number] [place] 00:00:00 00:00:00 LISHA [address] 2023-02-02 2023-02-02 Outpatient [facility] [id number] [place] 00:00:00 00:00:00 0613 Commun i ty [facility] 2023-02-02 2023-02-02 Outpatient [facility] [id number] [place] 00:00:00 00:00:00 0615 Commun i ty Hospita [facility] Clinics 2023-02-02 2023-02-02 Outpatient [facility] [id number] [place] 00:00:00 00:00:00 0712 Commun i ty Hospita [facility] Clinics 2023-02-02 2023-02-02 Kelsey [facility] [place] [id number] [place] 00:00:00 00:00:00 [facility] ADMINISTRATIVE VOLUNTEER-TOURIST INFORMATION ASSISTANT-B Hospital - ty C: [address], [address], [place] [address] , Ph. 2022-11-09 2022-11-09 Outpatient [facility] [id number] [place] 00:00:00 00:00:00 0320 Commun i ty Hospita [facility] Clinics 2022-11-09 2022-11-09 Kelsey [facility] [place] 20 [place] 00:00:00 00:00:00 [facility] ADMINISTRATIVE VOLUNTEER-TOURIST INFORMATION ASSISTANT-B Hospital - ty C: [address], [address], [place] [address] , Ph. 2022-10-28 2022-10-28 Outpatient [facility] 1187 [place] 00:00:00 00:00:00 0308 Commun i ty Hospita [facility] Clinics 2022-10-28 2022-10-28 Kelsey [facility] [place] [id number] [place] 00:00:00 00:00:00 [facility] ADMINISTRATIVE VOLUNTEER-TOURIST INFORMATION ASSISTANT-B Hospital - ty C: [address], [address], [place] [address] , Ph. 2022-10-26 2022-10-26 Outpatient [facility] [place] [id number] [place] 00:00:00 00:00:00 0306 Commun i ty Hospita [facility] Clinics 2022-10-26 2022-10-26 Kelsey [facility] [place] 00:00:00 00:00:00 [facility] ADMINISTRATIVE VOLUNTEER-TOURIST INFORMATION ASSISTANT-B Hospital - ty C: [address], [address], [place] [address] , Ph. 2022-07-01 2022-07-01 Outpatient [facility] [id number] [place] 00:00:00 00:00:00 1109 Commun i ty Hospita [facility] Clinics 2022-07-01 2022-07-01 Outpatient [facility] [id number] [place] 00:00:00 00:00:00 0112 Commun i ty Hospita [facility] Clinics 2022-07-01 2022-07-01 Kelsey [facility] [place] [id number] [place] 00:00:00 00:00:00 [facility] ADMINISTRATIVE VOLUNTEER-TOURIST INFORMATION ASSISTANT-B Hospital - ty C: [address], [address], [place] [address] , Ph. 2022-06-29 2022-06-29 Outpatient [facility] 1187 [place] 00:00:00 00:00:00 1107 Commun i ty Hospita l Clinics 2022-06-29 2022-06-29 Kelsye [facility] [place] [id number] [place] 00:00:00 00:00:00 [facility] ADMINISTRATIVE VOLUNTEER-TOURIST INFORMATION ASSISTANT-B Hospital - ty C: [address], [address], [place] [address] , Ph. 2022-06-01 2022-06-01 Outpatient [facility] [id number] [place] 00:00:00 00:00:00 1010 Commun i ty Hospita l Clinics 2022-06-01 2022-06-01 Kelsey [facility] [place] 10 [place] 00:00:00 00:00:00 Alma Davidson [facility]i ADMINISTRATIVE VOLUNTEER-TOURIST INFORMATION ASSISTANT-B [facility] C: [address], [address], [place] [address] , Ph. 2022-05-08 2022-05-08 Transcribe Jarad Velazquez 1.2.840.1 [id number] [facility] 00:00:00 00:00:00 [place] [address].1.[address] 3.430.2.7 Hospit a .3.158209 l .8 2022-05-08 2022-05-08 Transcribe Jarad Velazquez 1.2.840.1 [id number] [facility] 00:00:00 00:00:00 Orders Hung [address].1.[address] 3.430.2.7 Hospit a .3.936695 l .8 2022-05-08 2022-05-08 Outpatient JARAD VELAZQUEZ [facility] [id number] [place] 00:00:00 00:00:[address] 2022-05-08 2022-05-08 Outpatient JARAD VELAZQUEZ [facility] [id number] [place] 00:00:00 00:00:[address] 2022-05-07 2022-05-07 Outpatient [facility] [id number] [place] 00:00:00 00:00:00 0915 Commun i ty Hospita l Clinics 2022-05-07 2022-05-07 Outpatient Lety [facility] [id number] 00:00:00 00:00:00 Kelsey [id number] 2022-05-07 2022-05-07 Kelsey [facility] [place] 00:00:00 [facility]:00:[facility]OLUNTEER-TOURIST INFORMATION ASSISTANT-B Hospital - ty C: [address], [address], [place] [address] , Ph. 2022-03-19 2022-03-19 Outpatient Ferguson_Ro [facility] MEHOP [id number] [place] 00:00:00 00:00:00 bin [id number] [facility] 2022 2022 Outpatient [facility] [id number] [place] 00:00:00 00:00:00 0601 Commun i ty Hospita [facility] Clinics 2022-01-20 2022-01-20 Outpatient [facility] [id number] [place] 02:36:00 02:36:00 0531 Commun i ty Hospita l Clinics 2022-01-20 2022-01-20 Outpatient [facility] [id number] 00:00:00 00:00:00 Kelsey [id number] 2022-01-20 2022-01-20 Kelsey [facility] [place] 00:00:00 [facility]OL[facility]TEER-TOURIST INFORMATION ASSISTANT-B Hospital - ty C: [address], [address], [place] [address] , Ph. 2021-12-30 2021-12-30 Outpatient Ferguson[facility]Ro [facility] ME[facility]OP [id number] [place] 09:48:00 09:48:00 bin [id number] [facility] 2021-12-20 2021-12-20 Emergency Ramya, 1.2.840.1 [id number] [facility] 10:48:00 14:13:00 Jonah Freedman [address]885.1.[address] 3.430.2.7 Hospit a .3.220436 l .8 2021-12-16 2021-12-16 Outpatient [facility] [id number] [place] 02:47:00 02:47:00 0426 Commun i ty Hospita [facility] Clinics 2021-10-30 2021-10-30 Outpatient [facility] [id number] [place] 12:58:00 12:58:00 0310 Commun i [address] [facility]ospita l [facility] 2021-10-30 2021-10-30 Outpatient Priscila [facility] [id number] 00:00:00 00:00:00 Samra [id number] 2021-10-30 2021-10-30 Samra [facility] [place] 00:00:00 00:00:00 [facility] Comm uni ADMINISTRATIVE VOLUNTEER-HEAD OF QUALITY-C: [facility] ty [address] [facility], [facility] Clinics [address], [place] [address] , Ph. Results Test Description Test Time Test Comments Results Result Comments Source SARS-CoV-2 (COVID-19) Ag [Presence] in Respiratory spe cimen by 2023-03-08 10:11:00 Rapid immunoassay Test Item Value Reference Range Interpretation Comme nts SARS CoV 2 (test code = SARS CoV 2) [facility], [id number] 10:03:00 Test Item Value Reference Range Interpretation Comments Strep (test code = Strep) negative [facility] [id number] 16:58:00 Test Item Value Reference Range Interpretation Comments Urine culture (test SEE COMMENT Bacteriu mayra screen code = 6226071) negative. [facility] [id number] 16:58:00 Test Item Value Reference Range Interpretation Comments Urine culture (test SEE COMMENT Bacteriu mayra screen code = 9371144) negative. [facility] [id number] 16:58:00 Test Item Value Reference Range Interpretation Comments Urine culture (test SEE COMMENT Bacteriu mayra screen code = [id number]) negative. [facility] [id number] 16:58:00 Test Item Value Reference Range Interpretation Comments Urine culture (test SEE COMMENT Bacteriu mayra screen code = [id number]) negative. [facility] [id number] 16:58:00 Test Item Value Reference Range Interpretation Comments Urine culture (test SEE COMMENT Bacteriu mayra screen code = 5225830) negative. [facility] [Presence] in Blood by [id number] 11:30:00 Test Item Value Reference Range Interpretation Comments Rawlins (test code = Rawlins) positive [facility]
[2023-03-17] MEDS ORDERED: NA CHLORIDE 0.9% 1,000 ML ONE (14:09)
[2023-03-17] MEDS ORDERED: ONDANSETRON 4 MG/2 ML VIAL ONE (14:09)
[2023-03-17] MEDS ORDERED: FAMOTIDINE 20 MG/2 ML VIAL IV ONE (14:09)
[2023-03-17 14:14] LABS: Absolute Lymphocytes (CBC) 2.7 K/uL (0.7-4.9); Hematocrit 43.8 % (36.0-45.0); Lymphocytes % 31.1 % (15.3-44.8); MCV 91.7 fL (80-100); MPV 8.6 fL (7.6-11.3); RBC Red Blood Cell Count 4.78 M/uL (3.86-4.86)
[2023-03-17 14:29] LABS: Protime INR 1.07
[2023-03-17 14:34] LABS: ALT/SGPT 27 U/L (13-56); AST/SGOT 21 U/L (15-37); Albumin 3.5 g/dL (3.4-5.0); Alkaline Phosphatase 92 U/L (45-117); BUN Blood Urea Nitrogen 11 mg/dL (7-18); Bicarbonate 27 mEq/L (21-32); Bilirubin Total 0.2 mg/dL (0.2-1.0); Glomerular Filtration Rate 96 ml/min (=/>90); Glucose Level 96 mg/dL (74-106); Potassium 3.5 mEq/L (3.5-5.1); Protein, Total 7.8 g/dL (6.4-8.2); Sodium Level 137 mEq/L (136-145); Troponin High Sensitivity 4.2 pg/mL (<58.9)
[2023-03-17 14:37] LABS: Bilirubin Direct < 0.1 mg/dL (0-0.2); Bilirubin Indirect, Calculated ND mg/dL (0.2-0.8)
[2023-03-17 15:20] LABS: Specific Gravity 1.011 (1.005-1.030); Urine Bilirubin NEGATIVE (Negative); Urine Blood Negative (Negative); Urine Clarity Clear (Clear); Urine Color Colorless (Yellow); Urine Glucose NEGATIVE (Negative); Urine Protein NEGATIVE (Negative); Urine Urobilinogen Normal (Normal); Urine pH 7.5 (5.0-7.0)
[2023-03-17 15:23] LABS: Barbiturates NEGATIVE (NEGATIVE); Benzodiazepines NEGATIVE (NEGATIVE); Cocaine NEGATIVE (NEGATIVE); METHAMPHETAM NEGATIVE (NEGATIVE); Methadone NEGATIVE (NEGATIVE); Opiates POSITIVE (NEGATIVE); Phencyclidine NEGATIVE (NEGATIVE); THC Cannibis NEGATIVE (NEGATIVE)
[2023-03-17] MEDS ORDERED: KETOROLAC 30 MG/ML INJ ONE (15:28)
[2023-03-17] MEDS ORDERED: dexAMETHasone 10 MG/ML VIAL ONE (15:28)
--- NOTE | 2023-03-17 16:44 | RAD REPORT ---
EXAM DESCRIPTION: MRI - C Spine Wo Cont- 03/17/2023 4:37 pm CLINICAL HISTORY: back pain Neck pain, radiculopathy COMPARISON: No comparisons FINDINGS: Cervical vertebral bodies are normal in height and alignment. No suspicious marrow edema or marrow replacing process. No fracture or traumatic subluxation. The craniocervical junction is normal. C2-3 level: No significant findings. C3-4 level: 3 mm posterior osteophyte/ disc complex attenuates the anterior subarachnoid space and co ntacts and deforms the anterior cord. C4-5 level: Moderate posterior osteophyte/ disc complex is present attenuating the anterior subarachn oid space and flattening the anterior cord. C5-6 level: Right-sided posterior osteophyte/ disc complex is present attenuates the anterior subarac hnoid space and contacts and deforms the right aspect of the cord. Moderate right exit foraminal narr owing. C6-7 level: Moderate to large posterior osteophyte/disc complex is present attenuating the anterior s ubarachnoid space and contacting the anterior cord with flattening. Mild left-sided exit foraminal st enosis. C7-T1 level: No significant findings. Cervical cord is normal in size and signal. IMPRESSION: Moderately severe midcervical degenerative spondylosis is present. No severe canal steno sis or foraminal stenosis.
--- NOTE | 2023-03-17 17:09 | ER ---
Nurse's Notes [facility] Name: Helen Villagran Age: 43 yrs Sex: Female : 1980 Arrival Date: 03/17/2023 Time: 13:42 Bed 15 Private MD: Diagnosis: Radiculopathy, cervical region;Spondylolysis, cervical region;Cervical disc disorder with radiculopathy;Cervical disc disorder, unspecified, mid-cervical region Presentation: 03/17 13:45 Chief complaint: Patient states: Abdominal pain today. Took tylenol #3, last at noon, ll1 no relief. Chief complaint: EMS states: VSS. Coronavirus screen: Client denies travel out of the [place] in the last 14 days. At this time, the client does not indicate any symptoms associated with coronavirus-19. Ebola Screen: Patient denies travel to an Ebola-affected area in the 21 days before illness onset. Initial Sepsis Screen: Does the patient meet any 2 criteria? No. Patient's initial sepsis screen is negative. Does the patient have a suspected source of infection? Yes: Acute abdominal pain. Risk Assessment: Do you want to hurt yourself or someone else? Patient reports no desire to harm self or others. Onset of symptoms was March 17, 2023. 13:45 Method Of Arrival: EMS: [facility] ll1 13:45 Acuity: DARIAN 3 ll1 Historical: - Allergies: 13:44 tramadol; "mean person"; ll1 13:44 bentyl PO; ll1 13:44 [place] Cold/Cough (Anaphylaxis); ll1 - PMHx: 13:44 gastric sleeve; Hypertensive disorder; GERD; ll1 - PSHx: 13:44 Cholecystectomy; ll1 - Immunization history:: Adult Immunizations up to date. Screenin:00 [facility] ED Fall Risk Assessment (Adult) History of falling in the last 3 months, ll1 including since admission No falls in past 3 months (0 pts) Confusion or Disorientation No (0 pts) Intoxicated or Sedated No (0 pts) Impaired Gait No (0 pts) Mobility Assist Device Used No (0 pt) Altered Elimination No (0 pt) Score/Fall Risk Level 0 - 2 = Low Risk. Abuse screen: Denies threats or abuse. Denies injuries from another. Nutritional screening: No deficits noted. Tuberculosis screening: No symptoms or risk factors identified. Assessment: 14:00 General: Appears in no apparent distress. uncomfortable, Behavior is calm, cooperative, ll1 appropriate for age. Pain: Complains of pain in abdomen diffusely Pain does not radiate. Neuro: Level of Consciousness is awake, alert, obeys commands, Oriented to person, place, time, situation, Appropriate for age. Cardiovascular: Capillary refill < 3 seconds. Respiratory: Airway is patent Trachea midline Respiratory effort is even, unlabored, Respiratory pattern is regular, symmetrical. GI: Abdomen is flat, non-distended, Bowel sounds present X 4 quads. Abd is soft X 4 quads Abdomen is tender to palpation X 4 quads. Reports nausea, Patient currently denies diarrhea, vomiting. : No signs and/or symptoms were reported regarding the genitourinary system. EENT: No signs and/or symptoms were reported regarding the EENT system. Derm: No signs and/or symptoms reported regarding the dermatologic system. Skin is intact, is healthy with good turgor, Skin is pink, warm \\T\\ dry. Musculoskeletal: No signs and/or symptoms reported regarding the musculoskeletal system. Circulation, motion, and sensation intact. Capillary refill < 3 seconds, Range of motion: intact in all extremities. 15:00 Reassessment: Patient appears in no apparent distress at this time. No changes from ll1 previously documented assessment. Patient and/or family updated on plan of care and expected duration. Pain level reassessed. Patient is alert, oriented x 3, equal unlabored respirations, skin warm/dry/pink. 16:33 Reassessment: Patient appears in no apparent distress at this time. No changes from kc6 previously documented assessment. Patient and/or family updated on plan of care and expected duration. Pain level reassessed. Patient is alert, oriented x 3, equal unlabored respirations, skin warm/dry/pink. 17:08 Reassessment: Patient appears in no apparent distress at this time. No changes from kc6 previously documented assessment. Patient and/or family updated on plan of care and expected duration. Pain level reassessed. Patient is alert, oriented x 3, equal unlabored respirations, skin warm/dry/pink. Reassessment: d/c pending copy of MRI disc. Vital Signs: 15:32 BP 116 / 78; Pulse 58; Resp 17 S; Pulse Ox 100% on R/A; ll1 17:20 BP 173 / 94; Pulse 54; Resp 18 S; Pulse Ox 100% on R/A; kc6 ED Course: 13:44 Patient arrived in ED. ll1 13:44 Arm band placed on Patient placed in an exam room, on a stretcher. ll1 13:45 Bhupinder Clifford MD is Attending Physician. sole 13:46 Triage completed. ll1 13:55 Erika Alexander, RN is Primary Nurse. ll1 14:00 Patient has correct armband on for positive identification. Placed in gown. Bed in low ll1 position. Call light in reach. Side rails up X 1. Adult w/ patient. 16:27 C Spine Wo Cont In Process Unspecified. EDMS 17:02 Gray Lang MD is Referral Physician. sole 17:43 No provider procedures requiring assistance completed. IV discontinued, intact, kc6 bleeding controlled, No redness/swelling at site. Pressure dressing applied. Administered Medications: 14:11 Drug: NS 0.9% IV 1000 ml Route: IV; Rate: 1 bolus; Site: left antecubital; ll1 15:32 Follow up: Response: No adverse reaction; IV Status: Completed infusion; IV Intake: ll1 1000ml 14:11 Drug: Famotidine IVP 20 mg Route: IVP; Site: left antecubital; ll1 15:33 Follow up: Response: No adverse reaction ll1 14:12 Drug: Ondansetron IVP 4 mg Route: IVP; Site: left antecubital; ll1 15:33 Follow up: Response: No adverse reaction; Nausea is decreased ll1 15:25 Drug: Ketorolac IVP 30 mg Route: IVP; Site: left antecubital; ll1 15:53 Follow up: Response: No adverse reaction; Pain is decreased ll1 15:25 Drug: Decadron - Dexamethasone IVP 10 mg Route: IVP; Site: left antecubital; ll1 15:54 Follow up: Response: No adverse reaction ll1 Medication: 17:43 VIS not applicable for this client. kc6 Intake: 15:32 IV: 1000ml; Total: 1000ml. ll1 Outcome: 17:08 Discharge ordered by . sole 17:43 Discharged to home ambulatory, with significant other. kc6 17:43 Condition: improved 17:43 Discharge instructions given to patient, Instructed on discharge instructions, follow up and referral plans. medication usage, Demonstrated understanding of instructions, follow-up care, medications, Prescriptions given X 3. 17:43 Patient left the ED. kc6 Signatures: Dispatcher [employer] Bhupinder Figueroa MD MD cha Lewis, Lynsay, RN RN ll1 Yasmine Hernandez RN RN kc6 Corrections: (The following items were deleted from the chart) 17:43 17:43 Discharge instructions given to patient, Instructed on discharge instructions, kc6 follow up and referral plans. Demonstrated understanding of instructions, follow-up care, kc6
--- NOTE | 2023-03-17 17:09 | EDPHYS ---
Physician Documentation [facility] Name: Helen Villagran Age: 43 yrs Sex: Female : 1980 Arrival Date: 03/17/2023 Time: 13:42 Bed 15 Private MD: ED Physician Bhupinder Clifford HPI: 03/17 16:52 This 43 yrs old Black Female presents to ER via EMS with complaints of Abdominal Pain. sole 16:52 The patient or guardian complains of decreased range of motion, pain, that is acute. sole The complaints affect the right bicep and right tricep. Context: The problem was sustained at an unknown location, resulted from unknown cause. Onset: The symptoms/episode began/occurred 5 day(s) ago. Modifying factors: The symptoms are alleviated by remaining still, the symptoms are aggravated by movement, lifting weight, bending arm. The patient or guardian complains of decreased range of motion, pain, that is acute. Context: The problem was sustained at an unknown location. The pain radiates to the right scapular area. Modifying factors: The symptoms are alleviated by nothing. NSAIDS, remaining still, the symptoms are aggravated by movement. Associated signs and symptoms: Pertinent positives: decreased range of motion, pain. Historical: - Allergies: 13:44 tramadol; "mean person"; ll1 13:44 bentyl PO; ll1 13:44 Jackie-[place] Plus Cold/Cough (Anaphylaxis); ll1 - PMHx: 13:44 gastric sleeve; Hypertensive disorder; GERD; ll1 - PSHx: 13:44 Cholecystectomy; ll1 - Immunization history:: Adult Immunizations up to date. ROS: 16:53 Constitutional: Negative for fever, chills, and weight loss, Eyes: Negative for injury, sole pain, redness, and discharge, ENT: Negative for injury, pain, and discharge, Cardiovascular: Negative for chest pain, palpitations, and edema, Abdomen/GI: Negative for abdominal pain, nausea, vomiting, diarrhea, and constipation, Back: Negative for injury and pain, : Negative for injury, bleeding, discharge, and swelling, MS/Extremity: Negative for injury and deformity, Skin: Negative for injury, rash, and discoloration, Neuro: Negative for headache, weakness, numbness, tingling, and seizure. 16:53 Neck: Positive for pain with movement, pain at rest. 16:53 Abdomen/GI: Positive for abdominal pain, nausea and vomiting, abdominal cramps, sp norco. Exam: 16:53 Constitutional: This is a well developed, well nourished patient who is awake, alert, sole and in no acute distress. Head/Face: Normocephalic, atraumatic. Eyes: Pupils equal round and reactive to light, extra-ocular motions intact. Lids and lashes normal. Conjunctiva and sclera are non-icteric and not injected. Cornea within normal limits. Periorbital areas with no swelling, redness, or edema. ENT: Nares patent. No nasal discharge, no septal abnormalities noted. Tympanic membranes are normal and external auditory canals are clear. Oropharynx with no redness, swelling, or masses, exudates, or evidence of obstruction, uvula midline. Mucous membranes moist. Chest/axilla: Normal chest wall appearance and motion. Nontender with no deformity. No lesions are appreciated. Cardiovascular: Regular rate and rhythm with a normal S1 and S2. No gallops, murmurs, or rubs. Normal PMI, no JVD. No pulse deficits. Respiratory: Lungs have equal breath sounds bilaterally, clear to auscultation and percussion. No rales, rhonchi or wheezes noted. No increased work of breathing, no retractions or nasal flaring. Abdomen/GI: Soft, non-tender, with normal bowel sounds. No distension or tympany. No guarding or rebound. No evidence of tenderness throughout. Back: No spinal tenderness. No costovertebral tenderness. Full range of motion. Skin: Warm, dry with normal turgor. Normal color with no rashes, no lesions, and no evidence of cellulitis. Neuro: Awake and alert, GCS 15, oriented to person, place, time, and situation. Cranial nerves II-XII grossly intact. Motor strength 5/5 in all extremities. Sensory grossly intact. Cerebellar exam normal. Normal gait. Psych: Awake, alert, with orientation to person, place and time. Behavior, mood, and affect are within normal limits. 16:53 Neck: External neck: is normal, no acute changes, C-spine: appears grossly normal, Trachea: is midline with no obvious abnormalities, no acute changes, ROM/movement: is normal, no acute changes, Lymph nodes: no appreciated lymphadenopathy. 16:53 ECG was reviewed by the Attending Physician. Vital Signs: 15:32 BP 116 / 78; Pulse 58; Resp 17 S; Pulse Ox 100% on R/A; ll1 17:20 BP 173 / 94; Pulse 54; Resp 18 S; Pulse Ox 100% on R/A; kc6 MDM: 13:45 Patient medically screened. sole 16:56 Differential diagnosis: arthritis, C-Spine Fracture Cervical Disc Herniation Cervical sole Raiculopathy Cervical Spondylosis closed fracture, contusion, tendonitis, cervical strain, Degenerative Disc Disease fracture, Neck Contusion Spondylolisthesis subluxation, Thoracic Outlet Syndrome. Data reviewed: vital signs, nurses notes, lab test result(s), EKG, radiologic studies, CT scan. Consideration of Admission/Observation Escalation of care including admission/observation considered. I considered the following discharge prescriptions or medication management in the emergency department Medications were administered in the Emergency Department. See MAR. Independent interpretation of the following test(s) in the Emergency Department EKG: See my EKG interpretation above. Test considered but Not performed: Ultrasound no right upper extremity. Care significantly affected by the following chronic conditions: Hypertension, gastric sleeve, gerd. 03/17 13:46 Order name: Acetaminophen; Complete Time: 15:[address] [facility] 03/17 13:46 Order name: Basic Metabolic Panel; Complete Time: 15:[address] [facility] 03/17 13:46 Order name: CBC with Diff; Complete Time: 15:11 03/17 13:46 Order name: ETOH Level; Complete Time: 15:[address] [facility] 03/17 13:46 Order name: Hepatic Function; Complete Time: 15:[address] [facility] 03/17 13:46 Order name: PT-INR; Complete Time: 15:11 03/17 13:46 Order name: Test, Urine; Complete Time: 17:[address] [facility] 03/17 13:46 Order name: Ptt, Activated; Complete Time: 15:[address] [facility] 03/17 13:46 Order name: Salicylate; Complete Time: 15:[address] [facility] 03/17 13:46 Order name: Urinalysis w/ reflexes; Complete Time: 17:[address] [facility] 03/17 13:46 Order name: Urine Drug Screen; Complete Time: 17:[address] [facility] 03/17 13:46 Order name: Troponin High Sensitivity; Complete Time: 15:[address] [facility] 03/17 15:16 Order name: C Spine Wo Cont; Complete Time: 17:11 [facility] 03/17 13:46 Order name: EKG; Complete Time: 13:[address] [facility] 03/17 13:46 Order name: EKG - Nurse/Tech; Complete Time: 14:[address] [facility] 03/17 13:46 Order name: IV Saline Lock; Complete Time: 14:11 sole 03/17 13:46 Order name: Labs collected and sent; Complete Time: 14:[address] [facility] 03/17 13:46 Order name: Suicide Screening ([place]); Complete Time: 14:[address] [facility] EC:53 Rate is 56 beats/min. Rhythm is regular. QRS [place] is Normal. HI interval is normal. QRS sole interval is normal. QT interval is normal. No Q waves. T waves are Normal. No ST changes noted. Clinical impression: NSR w/ Non-specific ST/T Changes and No evidence of ischemia. Interpreted by me. Reviewed by me. Administered Medications: 14:11 Drug: NS 0.9% IV 1000 ml Route: IV; Rate: 1 bolus; Site: left antecubital; ll1 15:32 Follow up: Response: No adverse reaction; IV Status: Completed infusion; IV Intake: ll1 1000ml 14:11 Drug: Famotidine IVP 20 mg Route: IVP; Site: left antecubital; ll1 15:33 Follow up: Response: No adverse reaction ll1 14:12 Drug: Ondansetron IVP 4 mg Route: IVP; Site: left antecubital; ll1 15:33 Follow up: Response: No adverse reaction; Nausea is decreased ll1 15:25 Drug: Ketorolac IVP 30 mg Route: IVP; Site: left antecubital; ll1 15:53 Follow up: Response: No adverse reaction; Pain is decreased ll1 15:25 Drug: Decadron - Dexamethasone IVP 10 mg Route: IVP; Site: left antecubital; ll1 15:54 Follow up: Response: No adverse reaction ll1 Disposition Summary: 03/17/23 17:08 Discharge Ordered Location: Home sole Problem: new sole Symptoms: have improved sole Condition: Stable sole Diagnosis - Radiculopathy, cervical region sole - Spondylolysis, cervical region sole - Cervical disc disorder with radiculopathy sole - Cervical disc disorder, unspecified, mid-cervical region sole Followup: sole - With: Private Physician - When: 2 - 3 days - Reason: Recheck today's complaints, Continuance of care, Re-evaluation by your physician Followup: sole - With: Gray Lang MD - When: 2 - 3 days - Reason: Recheck today's complaints, Re-evaluation by your physician Discharge Instructions: - Discharge Summary Sheet sole - Cervical Radiculopathy sole - Pinched Nerve sole - Cervical Radiculopathy, [id number] sole - Radicular Pain sole Forms: - Medication Reconciliation Form sole - Thank You Letter sole - Antibiotic Education sole - Prescription Opioid Use sole - Patient Portal Instructions [facility] Prescriptions: - dexamethasone 1 mg Oral tablet - take 2 tablet by ORAL route every 12 hours; 10 tablet; Refills: 0, Product [facility] Selection Permitted - Diclofenac Sodium 75 mg Oral tablet,delayed release (DR/EC) - take 1 tablet by ORAL route 2 times per day; 20 tablet; Refills: 0, Product sole Selection Permitted - Cyclobenzaprine 5 mg Oral Tablet - take 1 tablet by ORAL route 3 times per day As needed; 15 tablet; Refills: 0, [facility] Product Selection Permitted Signatures: Dispatcher [employer] Bhupinder Figueroa MD MD cha Lewis, Lynsay, RN RN ll1
[2023-03-17 18:20] VITALS: O2SAT 100
[2023-03-17 18:22] VITALS: BP 173/94
--- NOTE | 2023-03-18 13:21 | EKG ---
Test Date: 2023-03-17 Test Time: 14:04:17 Forestry Support Specialist: PATEL MEASUREMENT RESULTS: Intervals: Rate: 56 [place]: 140 QRSD: 86 QT: 424 QTc: 409 [place]: P: 23 WY: 140 QRS: 30 T: 28 INTERPRETIVE STATEMENTS: Sinus bradycardia Otherwise normal ECG Compared to ECG 11/17/2022 12:16:36 Sinus rhythm no longer present Electronically Signed On 03-18-23 13:19:41 CDT by Javed Harris
== END 2023-03-17 17:43 | disposition home or self-care (01) ==
LOC: ER 13:42
DX: M54.12 Radiculopathy, cervical region (principal); M43.02 Spondylolysis, cervical region; R10.9 Unspecified abdominal pain; Z88.5 Allergy status to narcotic agent; Z88.8 Allergy status to other drugs, medicaments and biological substances
CPT/HCPCS: 85025; 80048; 36415; 81025; 85610; 80076; 85730; 81003; 84484; 80307; 72141; 80143; 80179; 82077; J1100; J2405; J7030; 93005; 96361; 96374; 96375; 99284

== ENCOUNTER 2024-02-03 23:14 | Emergency (ER) | payer BC, OTHER ==
[2024-02-03] MEDS ORDERED: DIPHENHYDRAMINE 50 MG/ML VIAL ONE (23:23)
[2024-02-03] MEDS ORDERED: NA CHLORIDE 0.9% 1,000 ML ONE (23:23)
[2024-02-03] MEDS ORDERED: METHYLPREDNISOLONE 125 MG INJ ONE (23:23)
[2024-02-03] MEDS ORDERED: FAMOTIDINE 20 MG/2 ML VIAL IV ONE (23:23)
--- NOTE | 2024-02-04 00:38 | EDPHYS ---
Physician Documentation [facility] Name: Helen Villagran Age: 44 yrs Sex: Female : 1980 Arrival Date: 02/03/2024 Time: 23:14 Bed 8 Private MD: ED Physician Jersey Perdue HPI: 02/03 00:26 This 44 yrs old Black Female presents to ER via Ambulatory with complaints of Allergic kb Reaction. 00:26 Pt is a 44 year old female who presents for allergic reaction that started at 1999. kb States she ate a richard and has never had one before so she believes that is the cause. Pt has a history of anaphylaxis but is not sure what previous episodes were from. Denies shortness of breath. States she has tingling and itching to throat and lips, itching to bilateral hands. [employer]EN[employer]IAN [employer]IC: 01:10 unknown cp4 Historical: - Allergies: 02/02 23:30 Jackie-[place] Plus Cold/Cough (Anaphylaxis); jb4 23:30 bentyl PO; jb4 23:30 tramadol; jb4 - PMHx: 23:30 gastric sleeve; GERD; Hypertensive disorder; jb4 - PSHx: 23:30 Cholecystectomy; jb4 - Immunization history:: Adult Immunizations up to date. - Infectious Disease History:: Denies. - Social history:: Smoking status: Patient denies any tobacco usage or history of. ROS: 02/03 00:26 Constitutional: As per HPI kb Exam: 00:36 Constitutional: This is a well developed, well nourished patient who is awake, alert, kb and in no acute distress. Head/Face: Normocephalic, atraumatic. ENT: Moist Mucous membranes Cardiovascular: Regular rate Respiratory: Respirations even and unlabored. No increased work of breathing. Talking in full sentences Abdomen/GI: Soft, non-tender. No distention Skin: Warm, dry with normal turgor. Normal color. MS/ Extremity: Pulses equal, no cyanosis. Neurovascular intact. Full, normal range of motion. Neuro: Awake and alert, GCS 15, oriented to person, place, time, and situation. Moves all extremities. Normal gait. Vital Signs: 02/02 23:26 BP 157 / 98; Pulse 65; Resp 16; Temp 97.5(TE); Pulse Ox 100% on R/A; Weight 86.18 kg jb4 (R); Height 5 ft. 4 in. ; 02/03 00:00 BP 131 / 103; Pulse 68; Resp 18; Pulse Ox 100% ; cp4 01:00 BP 157 / 98; Pulse 65; Resp 18; Pulse Ox 100% ; cp4 02/02 23:26 Body Mass Index 32.61 (86.18 kg, 162.56 cm) jb4 MDM: 02/02 23:19 Patient medically screened. kb 02/03 00:26 Data reviewed: vital signs, nurses notes. kb 00:36 Differential diagnosis: anaphylaxis, angioedema, urticaria. Counseling: I had a kb detailed discussion with the patient and/or guardian regarding the historical points, exam findings, and any diagnostic results supporting the discharge/admit diagnosis, the need for outpatient follow up, a family practitioner, to return to the emergency department if symptoms worsen or persist or if there are any questions or concerns that arise at home. Response to treatment: the patient's symptoms have resolved after treatment, pt states she is ready to go home. 02/02 23:29 Order name: IV Start; Complete Time: 23:31 kb Administered Medications: 02/02 23: Drug: NS 0.9% IV 1000 ml IV at 1000 ml once Route: IV; Rate: 1000 ml; Site: right kb antecubital; 02/03 01:05 Follow up: Response: No adverse reaction; IV Status: Completed infusion 4 02/02 23: Drug: MethylPrednisoLONE IVP 125 mg IVP once Route: IVP; Site: right antecubital; 02/03 01:06 Follow up: Response: No adverse reaction 4 02/02 23:29 Drug: diphenhydrAMINE IVP 25 mg IVP once Route: IVP; Site: right antecubital; 02/03 01:06 Follow up: Response: No adverse reaction 4 02/02 23:29 Drug: Famotidine IVP 20 mg IVP once; dilute with 10 mL 0.9% NaCl; give over 2 minutes kb Route: IVP; Site: right antecubital; 02/03 01:06 Follow up: Response: No adverse reaction 4 01:05 Not Given (Patient left prior to medicationn): [id number] mg PO once cp4 Disposition: 00:55 Co-signature as Attending Physician, Jersey Perdue MD I agree with the assessment sp4 and plan of care. I reviewed the patient's care provided by the Advanced Practice Provider and agree with the diagnosis and treatment plan. Disposition Summary: 02/04/24 00:37 Discharge Ordered Notes: Location: Home kb Condition: Stable kb Diagnosis - Allergy to other foods kb Followup: kb - With: Emergency Department - When: As needed - Reason: Worsening of condition Followup: kb - With: Private Physician - When: 2 - 3 days - Reason: Recheck today's complaints, Continuance of care, Re-evaluation by your physician Discharge Instructions: - Discharge Summary Sheet kb - Food Allergy, [id number] kb Forms: - Medication Reconciliation Form kb - Antibiotic Education kb - Prescription Opioid Use kb - Patient Portal Instructions kb - Leadership Thank You Letter kb Prescriptions: - EpiPen 0.3 mg/0.3 mL Injection Auto-Injector - administer 0.3 milliliter SUBCUTANEOUS route once As needed as a single dose; 1 kb unit; Refills: 0, Product Selection Permitted - Pepcid 20 mg Oral Tablet - take 1 tablet ORAL route every 12 hours for 5 days; 10 tablet; Refills: 0, kb Product Selection Permitted - Prednisone 20 mg Oral Tablet - take 1 tablet ORAL route once daily for 5 days; 5 tablet; Refills: 0, Product kb Selection Permitted Signatures: Candice Bowman, TOBIN-C -Kofi March RN RN jb4 Jersey Perdue MD MD sp4 Nieves Perez cp4
--- NOTE | 2024-02-04 00:38 | ER ---
Nurse's Notes [facility] Name: Helen Villagran Age: 44 yrs Sex: Female : 1980 Arrival Date: 02/03/2024 Time: 23:14 Bed 8 Private MD: Diagnosis: Allergy to other foods Presentation: 02/02 23:26 Chief complaint: Patient states: I have not had richard in a while. I had some tonight. I jb4 started feeling my tongue swell so I took benadryl at 830pm to 9pm and again at 11pm. Coronavirus screen: At this time, the client does not indicate any symptoms associated with coronavirus-19. Ebola Screen: No symptoms or risks identified at this time. Onset: The symptoms/episode began/occurred gradually. Anaphylaxis evaluation, Pt reports itching throat and tongue with tongue swelling. Initial Sepsis Screen: Does the patient meet any 2 criteria? No. Patient's initial sepsis screen is negative. Does the patient have a suspected source of infection? No. Patient's initial sepsis screen is negative. Risk Assessment: Do you want to hurt yourself or someone else? Patient reports no desire to harm self or others. Onset of symptoms was February 03, 2024. Transition of care: patient was not received from another setting of care. 23:26 Method Of Arrival: Ambulatory banner 23:26 Acuity: DARIAN 3 jb4 CERTIFIED REHABILITATION COUNSELOR: 02/03 01:10 unknown cp4 Historical: - Allergies: 02/02 23:30 Jackie-[place] Plus Cold/Cough (Anaphylaxis); jb4 23:30 bentyl PO; jb4 23:30 tramadol; jb4 - PMHx: 23:30 gastric sleeve; GERD; Hypertensive disorder; jb4 - PSHx: 23:30 Cholecystectomy; jb4 - Immunization history:: Adult Immunizations up to date. - Infectious Disease History:: Denies. - Social history:: Smoking status: Patient denies any tobacco usage or history of. Screenin:31 [facility] ED Fall Risk Assessment (Adult) History of falling in the last 3 months, cp4 including since admission No falls in past 3 months (0 pts) Confusion or Disorientation No (0 pts) Intoxicated or Sedated No (0 pts) Impaired Gait No (0 pts) Mobility Assist Device Used No (0 pt) Altered Elimination No (0 pt) Score/Fall Risk Level 0 - 2 = Low Risk Oriented to surroundings, Maintained a safe environment, Assessed \T\ reinforced patient's understanding of fall precautions, Hourly rounding (assess needs \T\ fall precautionary measures) done. Abuse screen: Denies threats or abuse. Nutritional screening: No deficits noted. Tuberculosis screening: No symptoms or risk factors identified. Assessment: 23:31 General: Appears uncomfortable, Behavior is calm, cooperative, appropriate for age. cp4 Pain: Denies pain. Respiratory: Airway is patent Respiratory effort is even, unlabored, Respiratory pattern is regular, Breath sounds are clear bilaterally. Vital Signs: 23:26 BP 157 / 98; Pulse 65; Resp 16; Temp 97.5(TE); Pulse Ox 100% on R/A; Weight 86.18 kg jb4 (R); Height 5 ft. 4 in. ; 02/03 00:00 BP 131 / 103; Pulse 68; Resp 18; Pulse Ox 100% ; cp4 01:00 BP 157 / 98; Pulse 65; Resp 18; Pulse Ox 100% ; cp4 02/02 23:26 Body Mass Index 32.61 (86.18 kg, 162.56 cm) jb4 ED Course: 02/02 23:17 Patient arrived in ED. ra3 23:19 [facility]C [facility] kb 23:19 Jersey Perdue MD is Attending Physician. kb 23:19 Nieves Perez is Primary Nurse. cp4 23:30 Triage completed. jb4 23:30 Arm band placed on right wrist. jb4 23:31 Bed in low position. Call light in reach. Side rails up X2. Provided Education on: cp4 allergic reaction. 23:31 No provider procedures requiring assistance completed. Inserted saline lock: 20 gauge cp4 in right antecubital area, using aseptic technique. 23:41 Inserted saline lock: 20 gauge in left antecubital area, using aseptic technique. cp4 intact, bleeding controlled, No redness/swelling at site. Pressure dressing applied. Administered Medications: 23:29 Drug: NS 0.9% IV 1000 ml IV at 1000 ml once Route: IV; Rate: 1000 ml; Site: right kb antecubital; 02/03 01:05 Follow up: Response: No adverse reaction; IV Status: Completed infusion cp4 02/02 23:29 Drug: MethylPrednisoLONE IVP 125 mg IVP once Route: IVP; Site: right antecubital; kb 02/03 01:06 Follow up: Response: No adverse reaction cp4 02/02 23:29 Drug: diphenhydrAMINE IVP 25 mg IVP once Route: IVP; Site: right antecubital; kb 02/03 01:06 Follow up: Response: No adverse reaction cp4 02/02 23:29 Drug: Famotidine IVP 20 mg IVP once; dilute with 10 mL 0.9% NaCl; give over 2 minutes kb Route: IVP; Site: right antecubital; 02/03 01:06 Follow up: Response: No adverse reaction cp4 01:05 Not Given (Patient left prior to medicationn): [id number] mg PO once cp4 Medication: 02/02 23:31 VIS not applicable for this client. cp4 Outcome: 02/03 00:37 Discharge ordered by . miller 01:09 Discharged to home ambulatory, cp4 01:09 Condition: stable 01:09 Discharge instructions given to patient, Instructed on discharge instructions, follow up and referral plans. medication usage, Demonstrated understanding of instructions, follow-up care, medications, Prescriptions given X 3, 01:10 Patient left the ED. cp4 Signatures: Candice Bowman FNP-C FNP-Kofi March, RN RN jb4 Nieves Perez cp4 Millie Bryan ra3
[2024-02-04 01:27] VITALS: TEMP 97.5; O2SAT 100
[2024-02-04 01:47] VITALS: BP 157/98
== END 2024-02-04 01:10 | disposition home or self-care (01) ==
LOC: ER 23:14
DX: L29.9 Pruritus, unspecified (principal); R20.2 Paresthesia of skin
CPT/HCPCS: 96361; 96375; 96374; 99284; J1200; J2919; J7030

== ENCOUNTER 2024-10-24 13:22 | Emergency (ER) | payer OTHER, SELFPAY ==
[2024-10-24] MEDS ORDERED: KETOROLAC 30 MG/ML INJ ONE (15:36)
[2024-10-24] MEDS ORDERED: METHYLPREDNISOLONE 125 MG INJ ONE (15:36)
[2024-10-24] MEDS ORDERED: CODEINE 30MG/APAP 300MG TAB ONE (15:45)
--- NOTE | 2024-10-24 17:45 | EDPHYS ---
Physician Documentation [facility] Name: Helen Villagran Age: 44 yrs Sex: Female : 1980 Arrival Date: 10/24/2024 Time: 13:22 Bed 10 Private MD: ED Physician Jamie Fay HPI: 10/24 14:42 This 44 yrs old Black Female presents to ER via Ambulatory with complaints of arthritis rn on hips and legs. 14:42 Patient reports has been having joint pains and aches for the last 2 years, is rn concerned she might have rheumatoid arthritis. Seen in urgent care yesterday for joint pain in the knees and hips and hands. Given steroids with short-term alleviation of pain. Was supposed to see PCP today but started having more pain so came in for evaluation. States has had this multiple times before and usually steroids help. Given prescription for prednisone but has not filled it yet.. The patient has experienced similar episodes in the past. Historical: - Allergies: 14:09 Jackie-[place] Plus Cold/Cough (Anaphylaxis); ss 14:09 bentyl PO; ss 14:09 tramadol; ss - PMHx: 14:09 gastric sleeve; GERD; Hypertensive disorder; ss - PSHx: 14:09 Cholecystectomy; ss - Family history:: not pertinent. - Hospitalizations: : No recent hospitalization is reported. ROS: 14:42 Constitutional: Negative for fever, chills, and weight loss, Cardiovascular: Negative rn for chest pain, palpitations, and edema, Respiratory: Negative for shortness of breath, cough, wheezing, and pleuritic chest pain, Abdomen/GI: Negative for abdominal pain, nausea, vomiting, diarrhea, and constipation, MS/Extremity: Positive for joint pain in legs and hands Skin: Negative for injury, rash, and discoloration, Neuro: Negative for headache, weakness, numbness, tingling, and seizure, Exam: 14:42 Constitutional: This is a well developed, well nourished patient who is awake, alert, rn and in no acute distress. Ambulatory to triage without assistance Cardiovascular: Regular rate and rhythm. No pulse deficits. Respiratory: No increased work of breathing, no retractions or nasal flaring. MS/ Extremity: Pulses equal, no cyanosis. Neuro: Awake and alert, GCS 15 Vital Signs: 14:08 Pulse 81; Resp 18; Temp 98.3(TE); Pulse Ox 100% on R/A; ss 14:20 BP 143 / 105; ld1 MDM: 13:26 Medical Screening Exam initiated rn 17:44 Differential Diagnosis Rheumatologic problem, arthritis. Data reviewed: vital signs, rn nurses notes, and as a result, I will discharge patient. Counseling: I had a detailed discussion with the patient and/or guardian regarding the historical points, exam findings, and any diagnostic results supporting the discharge/admit diagnosis, the need for outpatient follow up, to return to the emergency department if symptoms worsen or persist or if there are any questions or concerns that arise at home. Special discussion: I discussed with the patient/guardian in detail that at this point there is no indication for admission to the hospital. It is understood, however, that if the symptoms persist or worsen the patient needs to return immediately for re-evaluation. Based on the history and exam findings, there is no indication for further emergent testing or inpatient evaluation. I discussed with the patient/guardian the need to see the sail lay out worker for further evaluation of the symptoms. 10/24 14:16 Order name: IV Start; Complete Time: 15:46 rn Administered Medications: 15:46 Drug: MethylPrednisoLONE IVP 125 mg IVP once Route: IVP; Site: left antecubital; ld1 18:10 Follow up: Response: No adverse reaction; Marked relief of symptoms jb4 15:46 Drug: Ketorolac IVP 30 mg IVP once Route: IVP; Site: left antecubital; ld1 18:10 Follow up: Response: No adverse reaction; Marked relief of symptoms jb4 15:46 Drug: Acetaminophen-Codeine PO (300 mg-30 mg) 0.5 tabs PO once; RASS on ADMIN: Combtv4, ld1 Very Agttd3, Agttd2, Rstlss1, AlertClm0, Drwsy-1, Lt Sdtn-2, Mod Sdtn-3, Dp Sdtn-4, UnArsble-5 Route: PO; 18:10 Follow up: Response: No adverse reaction; Marked relief of symptoms jb4 Disposition Summary: 10/24/24 17:45 Discharge Ordered Notes: Location: Home rn Problem: an ongoing problem rn Symptoms: have improved rn Condition: Stable rn Diagnosis - Polyarthritis, unspecified rn Followup: rn - With: Private Physician - When: As needed - Reason: Recheck today's complaints, Re-evaluation by your physician Discharge Instructions: - Discharge Summary Sheet rn - Arthritis rn Forms: - Medication Reconciliation Form rn - 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
--- NOTE | 2024-10-24 17:45 | ER ---
Nurse's Notes [facility] Name: Helen Villagran Age: 44 yrs Sex: Female : 1980 Arrival Date: 10/24/2024 Time: 13:22 Bed 10 Private MD: Diagnosis: Polyarthritis, unspecified Presentation: 10/24 14:08 Chief complaint: Patient states: bilateral knee pain. Pt believes she has RA, and is in ss the process of receiving DX and treatment. Coronavirus screen: Client denies travel out of the [place] in the last 14 days. Ebola Screen: Patient denies exposure to infectious person. Patient denies travel to an Ebola-affected area in the 21 days before illness onset. Initial Sepsis Screen: Does the patient meet any 2 criteria? No. Patient's initial sepsis screen is negative. Does the patient have a suspected source of infection? No. Patient's initial sepsis screen is negative. Risk Assessment: Do you want to hurt yourself or someone else? Patient reports no desire to harm self or others. Onset of symptoms is unknown. 14:08 Method Of Arrival: Ambulatory ss 14:08 Acuity: DARIAN 4 ss Historical: - Allergies: 14:09 [place] Plus Cold/Cough (Anaphylaxis); ss 14:09 bentyl PO; ss 14:09 tramadol; ss - PMHx: 14:09 gastric sleeve; GERD; Hypertensive disorder; ss - PSHx: 14:09 Cholecystectomy; ss - Family history:: not pertinent. - Hospitalizations: : No recent hospitalization is reported. Screenin:08 [facility] ED Fall Risk Assessment (Adult) History of falling in the last 3 months, jb4 including since admission No falls in past 3 months (0 pts) Confusion or Disorientation No (0 pts) Intoxicated or Sedated No (0 pts) Impaired Gait No (0 pts) Mobility Assist Device Used No (0 pt) Altered Elimination No (0 pt) Score/Fall Risk Level 0 - 2 = Low Risk Oriented to surroundings, Maintained a safe environment. Abuse screen: Denies threats or abuse. Nutritional screening: No deficits noted. Tuberculosis screening: No symptoms or risk factors identified. Assessment: 14:12 Reassessment: Dr. Fay assessing patient and discussing plan of care with patient in ss triage at this time. 18:08 Reassessment: Patient appears in no apparent distress at this time. Patient and/or jb4 family updated on plan of care and expected duration. Pain level reassessed. Patient is alert, oriented x 3, equal unlabored respirations, skin warm/dry/pink. Vital Signs: 14:08 Pulse 81; Resp 18; Temp 98.3(TE); Pulse Ox 100% on R/A; ss 14:20 BP 143 / 105; ld1 ED Course: 13:25 Patient arrived in ED. al6 13:26 Jamie Fay MD is Attending Physician. rn 14:09 Triage completed. ss 14:09 Arm band placed on right wrist. ss 15:46 Inserted saline lock: 24 gauge in left antecubital area, using aseptic technique. bc6 Flushed with 10 mL NS. 18:08 Patient has correct armband on for positive identification. Bed in low position. Call jb4 light in reach. Side rails up X 1. Provided Education on: discharge instructions.. 18:08 No provider procedures requiring assistance completed. IV discontinued, intact, jb4 bleeding controlled, No redness/swelling at site. Pressure dressing applied. Administered Medications: 15:46 Drug: MethylPrednisoLONE IVP 125 mg IVP once Route: IVP; Site: left antecubital; ld1 18:10 Follow up: Response: No adverse reaction; Marked relief of symptoms jb4 15:46 Drug: Ketorolac IVP 30 mg IVP once Route: IVP; Site: left antecubital; ld1 18:10 Follow up: Response: No adverse reaction; Marked relief of symptoms jb4 15:46 Drug: Acetaminophen-Codeine PO (300 mg-30 mg) 0.5 tabs PO once; RASS on ADMIN: Combtv4, ld1 Very Agttd3, Agttd2, Rstlss1, AlertClm0, Drwsy-1, Lt Sdtn-2, Mod Sdtn-3, Dp Sdtn-4, UnArsble-5 Route: PO; 18:10 Follow up: Response: No adverse reaction; Marked relief of symptoms jb4 Medication: 18:08 VIS not applicable for this client. jb4 Outcome: 17:45 Discharge ordered by . rn 18:10 Discharged to home ambulatory, jb4 18:10 Condition: stable 18:10 Discharge instructions given to patient, Instructed on discharge instructions, follow up and referral plans. no drinking with medication, no driving heavy equipment, medication usage, Demonstrated understanding of instructions, follow-up care, medications, Prescriptions given X 2, 18:11 Patient left the ED. jb4 Signatures: Jamie Fay MD MD rn Blanchard, Shelby, RN RN Kofi Dominguez RN RN jb4 Cely Hardy RN RN ld1 Lala Nathan 6 Tatiana Sanches al6 Corrections: (The following items were deleted from the chart) 18:10 18:08 Discharged to home ambulatory, jb4 jb4 18:10 18:08 Condition: stable jb4 jb4 18:10 18:08 Discharge instructions given to patient, Instructed on discharge instructions, jb4 follow up and referral plans. no drinking with medication, no driving heavy equipment, medication usage, Demonstrated understanding of instructions, follow-up care, medications, Prescriptions given X 2, jb4
[2024-10-24 18:29] VITALS: TEMP 98.3; O2SAT 100
[2024-10-24 18:34] VITALS: BP 143/105
== END 2024-10-24 18:11 | disposition home or self-care (01) ==
LOC: ER 13:22
DX: M25.50 Pain in unspecified joint (principal)
CPT/HCPCS: 96374; 96375; 99284; J2919